=== PATIENT | female | born 1975 | race African-American/Black ===

== ENCOUNTER 2017-06-18 11:29 | Inpatient (IN) ==
[2017-06-18] MEDS ORDERED: HYDROcodone/CHLORPHENIRAMINE ER 5 ML UDCUP PO ONE ×2 (13:07→13:41)
[2017-06-18] MEDS ORDERED: ALBUTEROL/IPRATROPIUM 3 ML NEB RESP TX STA ×2 (13:07→14:51)
[2017-06-18 13:40] LABS: Basophils % 0.2 % (0.0-0.8); Hematocrit 43.1 VOL% (35.7-47.0); Hemoglobin 13.8 GM/DL (12.0-16.0); Immature Granulocytes % 0.4 %; Immature Granulocytes Absolute 0.02 #; Lymphocytes # 0.4 10*3/uL (1.4-4.0); Lymphocytes % 7.2 % (21.3-54.2); Mean Corpuscular Hemoglobin 29 PG (27-34); Mean Corpuscular Volume 89.6 FL (87-102); Mean Platelet Volume 12.2 FL (9.6-12.0); Monocytes # 0.6 10*3/uL (0.11-0.8); Monocytes % 12.4 % (1.7-12.7); Neutrophils % 79.8 % (38.7-73.9); Platelet Count 124 T/CUMM (130-400); Red Blood Count 4.81 MC/CUMM (3.8-5.5); Red Cell Distribution Width 12.7 % (9.3-17.3)
[2017-06-18 14:05] LABS: Albumin 3.3 G/DL (3.4-5.0); Bilirubin,Total 0.6 MG/DL (0.2-1.0); Calcium 8.5 MG/DL (8.5-10.1); Osmolality,Calculated 267.2 MOS/KG (273-304); Potassium 3.5 MMOL/L (3.5-5.1); Total Protein 7.4 G/DL (6.4-8.3)
[2017-06-18 14:06] LABS: Lactic Acid 1.6 MMOL/L (0.4-2.0)
[2017-06-18] MEDS ORDERED: SODIUM CHLORIDE 0.9% 1,000 ML IV STA (14:51)
[2017-06-18] MEDS ORDERED: cefTRIAXone 1,000 MG in SODIUM CHLORIDE 0.9% 100 ML IV STA (15:45)
[2017-06-18] MEDS ORDERED: ACETAMINOPHEN 325 MG TABLET PO ONE (16:12)
[2017-06-18] MEDS ORDERED: cefTRIAXone 1,000 MG VIAL ONE (16:20)
[2017-06-18] MEDS ORDERED: ACETAMINOPHEN 325 MG TABLET ONE (16:20)
[2017-06-18] MEDS ORDERED: ONDANSETRON 4 MG/2 ML VIAL IV PRN (16:34)
[2017-06-18] MEDS ORDERED: DILTIAZEM 50 MG/10 ML VIAL IV ONE ×2 (18:43→19:36)
[2017-06-18] MEDS ORDERED: ALBUTEROL 2.5 MG/3 ML NEB RESP TX PRN (20:00)
[2017-06-18] MEDS ORDERED: CARVEDILOL 3.125 MG TABLET PO ONE (20:00)
[2017-06-18] MEDS: OSELTAMIVIR 75 MG CAPSULE PO SCH (20:15)
[2017-06-18] MEDS: SODIUM CHLORIDE 0.9% 1,000 ML IV SCH (20:15)
[2017-06-19 05:45] LABS: Basophils % 0.3 % (0.0-0.8); Eosinophils % 0.3 % (0.00-10.9); Hematocrit 36.2 VOL% (35.7-47.0); Hemoglobin 11.4 GM/DL (12.0-16.0); Immature Granulocytes % 0.6 %; Immature Granulocytes Absolute 0.02 #; Lymphocytes # 0.4 10*3/uL (1.4-4.0); Lymphocytes % 12.9 % (21.3-54.2); Mean Corpuscular HGB Conc 31.5 GM/DL (32-36); Mean Corpuscular Hemoglobin 29 PG (27-34); Mean Corpuscular Volume 90.5 FL (87-102); Mean Platelet Volume 13.3 FL (9.6-12.0); Monocytes # 0.4 10*3/uL (0.11-0.8); Monocytes % 11.3 % (1.7-12.7); Neutrophils # 2.3 10*3/uL (1.4-7.4); Neutrophils % 74.6 % (38.7-73.9); Platelet Count 111 T/CUMM (130-400); White Blood Count 3.1 T/CUMM (4-12)
[2017-06-19 06:22] LABS: Calcium 7.7 MG/DL (8.5-10.1); Magnesium 2.3 MG/DL (1.8-2.4); Osmolality,Calculated 274.7 MOS/KG (273-304); Potassium 3.9 MMOL/L (3.5-5.1)
[2017-06-19] MEDS: SODIUM CHLORIDE 0.9% 1,000 ML IV SCH ×2 (10:00→21:22)
[2017-06-19] MEDS ORDERED: DILTIAZEM 30 MG TABLET PO SCH (10:00)
[2017-06-19] MEDS: PANTOPRAZOLE 40 MG TABLET PO SCH (10:02)
[2017-06-19] MEDS: OSELTAMIVIR 75 MG CAPSULE PO SCH ×2 (10:02→20:20)
[2017-06-19] MEDS: LEVOFLOXACIN INJ 500 MG in PREMIX 1 EACH IV SCH (17:10)
[2017-06-19] MEDS: ACETAMINOPHEN 325 MG TABLET PO PRN (17:12)
[2017-06-19] MEDS: cefTRIAXone 1,000 MG in SYRINGE 1 EACH IV SCH (20:20)
[2017-06-20 04:48] LABS: Eosinophils % 0.8 % (0.00-10.9); Hematocrit 32.8 VOL% (35.7-47.0); Hemoglobin 10.5 GM/DL (12.0-16.0); Immature Granulocytes % 0.4 %; Immature Granulocytes Absolute 0.01 #; Lymphocytes # 0.6 10*3/uL (1.4-4.0); Lymphocytes % 22.9 % (21.3-54.2); Mean Corpuscular Hemoglobin 29 PG (27-34); Mean Corpuscular Volume 90.9 FL (87-102); Monocytes # 0.2 10*3/uL (0.11-0.8); Monocytes % 8.3 % (1.7-12.7); Neutrophils # 1.7 10*3/uL (1.4-7.4); Neutrophils % 67.6 % (38.7-73.9); Red Blood Count 3.61 MC/CUMM (3.8-5.5); Red Cell Distribution Width 12.9 % (9.3-17.3); White Blood Count 2.5 T/CUMM (4-12)
[2017-06-20] MEDS: ACETAMINOPHEN 325 MG TABLET PO PRN ×2 (04:48→16:59)
[2017-06-20 04:55] LABS: Platelet Count 87 T/CUMM (130-400)
[2017-06-20 05:14] LABS: Calcium 7.2 MG/DL (8.5-10.1); Potassium 3.5 MMOL/L (3.5-5.1)
[2017-06-20 06:32] LABS: Hypochromasia 2+
[2017-06-20] MEDS: PANTOPRAZOLE 40 MG TABLET PO SCH (09:06)
[2017-06-20] MEDS: OSELTAMIVIR 75 MG CAPSULE PO SCH ×2 (09:06→20:25)
[2017-06-20] MEDS: SODIUM CHLORIDE 0.9% 1,000 ML IV SCH ×2 (11:27→14:54)
[2017-06-20] MEDS: LEVOFLOXACIN INJ 500 MG in PREMIX 1 EACH IV SCH (17:00)
[2017-06-20] MEDS: cefTRIAXone 1,000 MG in SYRINGE 1 EACH IV SCH (20:25)
[2017-06-21] MEDS: SODIUM CHLORIDE 0.9% 1,000 ML IV SCH ×3 (00:37→16:45)
[2017-06-21] MEDS: ACETAMINOPHEN 325 MG TABLET PO PRN (04:43)
[2017-06-21 06:48] LABS: Eosinophils % 0.5 % (0.00-10.9); Hematocrit 32.4 VOL% (35.7-47.0); Hemoglobin 10.4 GM/DL (12.0-16.0); Immature Granulocytes Absolute 0.02 #; Lymphocytes # 0.6 10*3/uL (1.4-4.0); Lymphocytes % 32.3 % (21.3-54.2); Mean Corpuscular HGB Conc 32.1 GM/DL (32-36); Mean Corpuscular Hemoglobin 29 PG (27-34); Monocytes # 0.2 10*3/uL (0.11-0.8); Monocytes % 8.3 % (1.7-12.7); Neutrophils # 1.1 10*3/uL (1.4-7.4); Neutrophils % 57.9 % (38.7-73.9); Platelet Count 77 T/CUMM (130-400); Red Cell Distribution Width 12.8 % (9.3-17.3); White Blood Count 1.9 T/CUMM (4-12)
[2017-06-21 07:14] LABS: Band Neutrophils 2 % (0-10); Hypochromasia 1+; Lymphocytes 30 % (20-55); Segmented Neutrophils 58 % (50-85); Total Cells Counted 100
[2017-06-21 07:15] LABS: Microcytosis 1+
[2017-06-21 07:16] LABS: Platelet Estimate Decreased
[2017-06-21 07:18] LABS: Calcium 7.2 MG/DL (8.5-10.1); Osmolality,Calculated 270.7 MOS/KG (273-304); Potassium 3.1 MMOL/L (3.5-5.1)
[2017-06-21] MEDS: OSELTAMIVIR 75 MG CAPSULE PO SCH ×2 (10:09→20:47)
[2017-06-21] MEDS: PANTOPRAZOLE 40 MG TABLET PO SCH (10:10)
[2017-06-21] MEDS: POTASSIUM CHLORIDE 20 MEQ TABLET PO SCH (12:49)
[2017-06-21] MEDS: LEVOFLOXACIN INJ 500 MG in PREMIX 1 EACH IV SCH (16:47)
[2017-06-21] MEDS: cefTRIAXone 1,000 MG in SYRINGE 1 EACH IV SCH (20:47)
[2017-06-22] MEDS: SODIUM CHLORIDE 0.9% 1,000 ML IV SCH (03:03)
[2017-06-22 04:42] LABS: Calcium 7.5 MG/DL (8.5-10.1); Osmolality,Calculated 273.5 MOS/KG (273-304); Potassium 3.7 MMOL/L (3.5-5.1)
[2017-06-22 08:19] VITALS: BP 113/71
[2017-06-22] MEDS: PANTOPRAZOLE 40 MG TABLET PO SCH (09:05)
[2017-06-22] MEDS: OSELTAMIVIR 75 MG CAPSULE PO SCH (09:05)
[2017-06-22] MEDS: POTASSIUM CHLORIDE 20 MEQ TABLET PO SCH (09:06)
== END 2017-06-22 11:31 | disposition home or self-care (01) | DRG 139 ==
LOC: N.ED 11:29 → N.EDINP 15:48 → N.5E 18:32 → N.TELEN 19:26

== ENCOUNTER 2017-12-07 17:40 | Inpatient (IN) ==
[2017-12-07] MEDS ORDERED: ALBUTEROL NEB SOLN 5 MG/ML 20 ML/BOTTLE CONT NEB STA (18:17)
[2017-12-07 18:49] LABS: Basophils % 0.7 % (0.0-0.8); Eosinophils # 0.7 10*3/uL (0.0-0.87); Eosinophils % 13.1 % (0.00-10.9); Hematocrit 39.2 VOL% (35.7-47.0); Hemoglobin 13.1 GM/DL (12.0-16.0); Immature Granulocytes % 0.2 %; Immature Granulocytes Absolute 0.01 #; Lymphocytes # 1.5 10*3/uL (1.4-4.0); Lymphocytes % 26.5 % (21.3-54.2); Mean Corpuscular HGB Conc 33.4 GM/DL (32-36); Mean Corpuscular Hemoglobin 29 PG (27-34); Mean Corpuscular Volume 87.7 FL (87-102); Mean Platelet Volume 12.7 FL (9.6-12.0); Monocytes # 0.7 10*3/uL (0.11-0.8); Monocytes % 12.7 % (1.7-12.7); Neutrophils # 2.7 10*3/uL (1.4-7.4); Neutrophils % 46.8 % (38.7-73.9); Platelet Count 136 T/CUMM (130-400); Red Blood Count 4.47 MC/CUMM (3.8-5.5); Red Cell Distribution Width 13.2 % (9.3-17.3); White Blood Count 5.7 T/CUMM (4-12)
[2017-12-07] MEDS ORDERED: ONDANSETRON 4 MG/2 ML VIAL IV STA (18:51)
[2017-12-07] MEDS ORDERED: methylPREDNISolone SOD SUC 125 MG/2 ML VIAL IV STA (18:51)
[2017-12-07 19:18] LABS: Albumin 3.8 G/DL (3.4-5.0); Bilirubin,Total 1.4 MG/DL (0.2-1.0); Calcium 9.3 MG/DL (8.5-10.1); Osmolality,Calculated 276.4 MOS/KG (273-304); Potassium 3.5 MMOL/L (3.5-5.1); Total Protein 7.3 G/DL (6.4-8.3)
[2017-12-07 20:54] LABS: Total Cells Counted 100
[2017-12-07 20:55] LABS: Band Neutrophils 3 % (0-10); Eosinophils 14 % (0-10); Hypochromasia 2+; Lymphocytes 25 % (20-55); Ovalocytes 1+; Platelet Estimate Decreased; Segmented Neutrophils 46 % (50-85)
[2017-12-07] MEDS ORDERED: ACETAMINOPHEN 325 MG TABLET PO PRN (22:45)
[2017-12-07] MEDS ORDERED: ONDANSETRON 4 MG/2 ML VIAL IV PRN (22:45)
[2017-12-07] MEDS ORDERED: ALBUTEROL/IPRATROPIUM 3 ML NEB RESP TX PRN (22:47)
[2017-12-08] MEDS: SODIUM CHLORIDE 0.9% 1,000 ML IV SCH ×2 (01:33→15:26)
[2017-12-08 06:32] LABS: Basophils % 0.2 % (0.0-0.8); Eosinophils % 0.4 % (0.00-10.9); Hemoglobin 12.3 GM/DL (12.0-16.0); Immature Granulocytes % 0.2 %; Immature Granulocytes Absolute 0.01 #; Lymphocytes # 0.3 10*3/uL (1.4-4.0); Lymphocytes % 5.2 % (21.3-54.2); Mean Corpuscular HGB Conc 32.4 GM/DL (32-36); Mean Corpuscular Hemoglobin 29 PG (27-34); Mean Corpuscular Volume 90.7 FL (87-102); Monocytes # 0.1 10*3/uL (0.11-0.8); Monocytes % 2.5 % (1.7-12.7); Neutrophils # 4.4 10*3/uL (1.4-7.4); Neutrophils % 91.5 % (38.7-73.9); Platelet Count 114 T/CUMM (130-400); Red Blood Count 4.19 MC/CUMM (3.8-5.5); Red Cell Distribution Width 13.4 % (9.3-17.3); White Blood Count 4.8 T/CUMM (4-12)
[2017-12-08 06:55] LABS: Hypochromasia 1+; Lymphocytes 4 % (20-55); Microcytosis Slight; Segmented Neutrophils 94 % (50-85); Total Cells Counted 100
[2017-12-08 06:56] LABS: Ovalocytes Slight; Platelet Estimate Adequate
[2017-12-08 07:04] LABS: Calcium 8.4 MG/DL (8.5-10.1)
[2017-12-08 07:05] LABS: Osmolality,Calculated 280.4 MOS/KG (273-304); Potassium 3.1 MMOL/L (3.5-5.1)
[2017-12-08] MEDS ORDERED: POTASSIUM CHLORIDE 20 MEQ TABLET PO ONE (07:30)
[2017-12-08] MEDS ORDERED: POTASSIUM CHLORIDE RIDER 10 MEQ in PREMIX 1 EACH IV PRN (07:31)
[2017-12-08] MEDS: BUDESONIDE/FORMOTEROL 80-4.5 INHALER 6.9 GM INH SCH ×2 (10:06→20:05)
[2017-12-08] MEDS: AZITHROMYCIN 250 MG TABLET PO SCH (10:08)
[2017-12-08] MEDS: PANTOPRAZOLE 40 MG TABLET PO SCH (10:09)
[2017-12-08] MEDS: ENOXAPARIN 40 MG/0.4 ML SYRINGE SUBCUT SCH (10:09)
[2017-12-08] MEDS: methylPREDNISolone SOD SUC 40 MG/1 ML VIAL IV SCH ×2 (10:09→17:24)
[2017-12-08 15:11] LABS: Calcium 8.3 MG/DL (8.5-10.1); Osmolality,Calculated 280.4 MOS/KG (273-304); Potassium 4.4 MMOL/L (3.5-5.1)
[2017-12-09] MEDS: methylPREDNISolone SOD SUC 40 MG/1 ML VIAL IV SCH ×2 (01:12→09:48)
[2017-12-09] MEDS: SODIUM CHLORIDE 0.9% 1,000 ML IV SCH (04:54)
[2017-12-09 06:16] LABS: Basophils % 0.1 % (0.0-0.8); Hematocrit 36.9 VOL% (35.7-47.0); Hemoglobin 11.7 GM/DL (12.0-16.0); Immature Granulocytes % 0.4 %; Immature Granulocytes Absolute 0.04 #; Lymphocytes # 0.6 10*3/uL (1.4-4.0); Lymphocytes % 5.1 % (21.3-54.2); Mean Corpuscular HGB Conc 31.7 GM/DL (32-36); Mean Corpuscular Hemoglobin 29 PG (27-34); Mean Corpuscular Volume 92.3 FL (87-102); Mean Platelet Volume 13.1 FL (9.6-12.0); Monocytes # 0.7 10*3/uL (0.11-0.8); Monocytes % 6.2 % (1.7-12.7); Neutrophils # 9.8 10*3/uL (1.4-7.4); Neutrophils % 88.2 % (38.7-73.9); Platelet Count 115 T/CUMM (130-400); Red Cell Distribution Width 13.7 % (9.3-17.3); White Blood Count 11.1 T/CUMM (4-12)
[2017-12-09 06:50] LABS: Calcium 8.7 MG/DL (8.5-10.1); Potassium 4.4 MMOL/L (3.5-5.1)
[2017-12-09 08:19] VITALS: BP 129/69
[2017-12-09] MEDS: ENOXAPARIN 40 MG/0.4 ML SYRINGE SUBCUT SCH (09:48)
[2017-12-09] MEDS: BUDESONIDE/FORMOTEROL 80-4.5 INHALER 6.9 GM INH SCH (09:48)
[2017-12-09] MEDS: AZITHROMYCIN 250 MG TABLET PO SCH (09:48)
[2017-12-09] MEDS: PANTOPRAZOLE 40 MG TABLET PO SCH (09:48)
== END 2017-12-09 10:29 | disposition home or self-care (01) | DRG 144 ==
LOC: N.ED 17:40 → N.4E 22:45
PROVIDERS: ADMIT Internal Medicine; ATTEND Internal Medicine

== ENCOUNTER 2018-06-30 08:58 | Inpatient (IN) ==
[2018-06-30] MEDS ORDERED: FUROSEMIDE 100 MG/10 ML VIAL IV STA (09:27)
[2018-06-30] MEDS ORDERED: hydrALAZINE 20 MG/1 ML VIAL IV STA (09:27)
[2018-06-30] MEDS ORDERED: methylPREDNISolone SOD SUC 125 MG/2 ML VIAL IV STA (09:27)
[2018-06-30] MEDS ORDERED: ONDANSETRON 4 MG/2 ML VIAL IV STA (09:27)
[2018-06-30] MEDS ORDERED: MORPHINE 4 MG/1 ML VIAL IV STA (09:27)
[2018-06-30] MEDS ORDERED: NITROGLYCERIN 2% OINT 1 INCH/GM PACK TOP STA (09:27)
[2018-06-30] MEDS ORDERED: ALBUTEROL 2.5 MG/3 ML NEB RESP TX SCH (09:30)
[2018-06-30 09:39] LABS: Basophils # 0.1 10*3/uL (0.0-0.2); Basophils % 0.7 % (0.0-0.8); Eosinophils # 0.5 10*3/uL (0.0-0.87); Hematocrit 47.9 VOL% (35.7-47.0); Hemoglobin 14.9 GM/DL (12.0-16.0); Immature Granulocytes % 0.2 %; Immature Granulocytes Absolute 0.02 #; Lymphocytes # 1.4 10*3/uL (1.4-4.0); Lymphocytes % 16.5 % (21.3-54.2); Mean Corpuscular HGB Conc 31.1 GM/DL (32-36); Mean Corpuscular Hemoglobin 29 PG (27-34); Mean Corpuscular Volume 92.6 FL (87-102); Mean Platelet Volume 12.3 FL (9.6-12.0); Monocytes # 0.7 10*3/uL (0.11-0.8); Monocytes % 8.5 % (1.7-12.7); Neutrophils # 5.7 10*3/uL (1.4-7.4); Neutrophils % 68.1 % (38.7-73.9); Platelet Count 181 T/CUMM (130-400); Red Blood Count 5.17 MC/CUMM (3.8-5.5); Red Cell Distribution Width 13.4 % (9.3-17.3); White Blood Count 8.3 T/CUMM (4-12)
[2018-06-30 09:49] LABS: INR 0.9; PT Patient Result 10.2 SECS
[2018-06-30 09:54] LABS: Alanine Aminotransferase 31 U/L (13-56); Albumin 3.8 G/DL (3.4-5.0); Alkaline Phosphatase 48 U/L (45-117); Aspartate Amino Transferase 25 U/L (0-37); Blood Urea Nitrogen 16 MG/DL (7-18); Calcium 8.9 MG/DL (8.5-10.1); Glucose 82 MG/DL (74-106); Osmolality,Calculated 272.8 MOS/KG (273-304); Sodium 137 MMOL/L (136-145); Total Protein 8.5 G/DL (6.4-8.3); Troponin I 0.026 NG/ML (0.00-0.045)
[2018-06-30] MEDS ORDERED: ALBUTEROL 2.5 MG/3 ML NEB RESP TX PRN (11:38)
[2018-06-30] MEDS ORDERED: ALBUTEROL/IPRATROPIUM 3 ML NEB RESP TX SCH (13:00)
[2018-06-30] MEDS ORDERED: PNEUMOCOCCAL VACCINE (23 VALENT) 0.5 ML VIAL IM ONE (13:27)
[2018-06-30] MEDS ORDERED: INFLUENZA VIRUS VACCINE 0.5 ML SYRINGE IM ONE (13:27)
[2018-06-30] MEDS ORDERED: AMOXICILLIN/CLAV 875 MG TABLET PO SCH (15:00)
[2018-06-30] MEDS: PANTOPRAZOLE 40 MG TABLET PO SCH (15:08)
[2018-06-30] MEDS: SODIUM CHLORIDE 0.9% 1,000 ML IV SCH (15:08)
[2018-06-30] MEDS: LEVALBUTEROL 1.25 MG/3 ML NEB RESP TX SCH ×2 (15:12→19:00)
[2018-06-30 15:15] LABS: HIV Antigen/Antibody Result Nonreactive (Nonreactive)
[2018-06-30 17:48] LABS: Apearance,Urine CLEAR (Clear); Bacteria,Urine Occasional /HPF (Few); Bilirubin,Urine Negative (Negative); Blood, Urine Negative (Negative); Glucose,Urine (UA) Negative (Negative); Hyaline Casts,Urine 13 /LPF (0-3); Ketones,Urine Negative (Negative); Mucus,Urine Occasional /LPF (Occasional); Nitrite,Urine Negative (Negative); Protein,Urine Negative; RBC,Urine <1 /HPF (0-4); Squamous Epithelial Cell,Urine Occasional /HPF (0-10); Urine Color Yellow (Yellow); Urine Specific Gravity 1.009 (1.001-1.035); Urine Urobilinogen < 2.0 EU/DL (0.2-1.0); WBC,Urine 1 /HPF (0-6)
[2018-06-30 18:03] LABS: Barbiturates Screen,Urine Negative (Negative); Benzodiazepines Screen,Urine Negative (Negative); Cannabinoid Screen,Urine Negative (Negative); Opiate Screen,Urine Positive (Negative); Phencyclidine Screen,Urine Negative (Negative)
[2018-06-30] MEDS: methylPREDNISolone SOD SUC 40 MG/1 ML VIAL IV SCH (18:48)
[2018-06-30] MEDS: MEROPENEM 1,000 MG in SODIUM CHLORIDE 0.9% 100 ML IV SCH (18:55)
[2018-06-30] MEDS: MONTELUKAST 10 MG TABLET PO SCH (21:08)
[2018-07-01] MEDS: LEVALBUTEROL 1.25 MG/3 ML NEB RESP TX SCH ×7 (00:31→23:17)
[2018-07-01] MEDS: methylPREDNISolone SOD SUC 40 MG/1 ML VIAL IV SCH ×3 (02:59→17:58)
[2018-07-01] MEDS: MEROPENEM 1,000 MG in SODIUM CHLORIDE 0.9% 100 ML IV SCH ×3 (03:02→17:59)
[2018-07-01] MEDS: SODIUM CHLORIDE 0.9% 1,000 ML IV SCH ×3 (03:02→20:09)
[2018-07-01] MEDS: PANTOPRAZOLE 40 MG TABLET PO SCH (10:18)
[2018-07-01] MEDS: MONTELUKAST 10 MG TABLET PO SCH (20:10)
[2018-07-01] MEDS: MORPHINE 4 MG/1 ML VIAL IV PRN (20:14)
[2018-07-02] MEDS: MEROPENEM 1,000 MG in SODIUM CHLORIDE 0.9% 100 ML IV SCH ×3 (02:39→18:17)
[2018-07-02] MEDS: methylPREDNISolone SOD SUC 40 MG/1 ML VIAL IV SCH ×3 (02:40→18:18)
[2018-07-02] MEDS: LEVALBUTEROL 1.25 MG/3 ML NEB RESP TX SCH ×5 (03:32→20:42)
[2018-07-02] MEDS ORDERED: FUROSEMIDE 40 MG/4 ML VIAL IV ONE (08:10)
[2018-07-02] MEDS: SODIUM CHLORIDE 0.9% 1,000 ML IV SCH (09:25)
[2018-07-02] MEDS: PANTOPRAZOLE 40 MG TABLET PO SCH (09:25)
[2018-07-02] MEDS: FUROSEMIDE 40 MG/4 ML VIAL IV SCH (17:05)
[2018-07-02] MEDS: MONTELUKAST 10 MG TABLET PO SCH (20:34)
[2018-07-03] MEDS: LEVALBUTEROL 1.25 MG/3 ML NEB RESP TX SCH ×8 (00:20→23:45)
[2018-07-03] MEDS: methylPREDNISolone SOD SUC 40 MG/1 ML VIAL IV SCH ×3 (02:51→17:57)
[2018-07-03] MEDS: MEROPENEM 1,000 MG in SODIUM CHLORIDE 0.9% 100 ML IV SCH ×3 (02:51→17:59)
[2018-07-03 05:29] LABS: Hemoglobin 11.8 GM/DL (12.0-16.0); Immature Granulocytes % 0.8 %; Immature Granulocytes Absolute 0.05 #; Lymphocytes # 0.5 10*3/uL (1.4-4.0); Lymphocytes % 7.8 % (21.3-54.2); Mean Corpuscular HGB Conc 31.1 GM/DL (32-36); Mean Corpuscular Hemoglobin 29 PG (27-34); Mean Corpuscular Volume 92.7 FL (87-102); Mean Platelet Volume 12.5 FL (9.6-12.0); Monocytes # 0.6 10*3/uL (0.11-0.8); Monocytes % 9.5 % (1.7-12.7); Neutrophils # 5.4 10*3/uL (1.4-7.4); Neutrophils % 81.9 % (38.7-73.9); Platelet Count 152 T/CUMM (130-400); White Blood Count 6.6 T/CUMM (4-12)
[2018-07-03 05:48] LABS: Calcium 8.4 MG/DL (8.5-10.1); Osmolality,Calculated 278.7 MOS/KG (273-304); Potassium 4.4 MMOL/L (3.5-5.1)
[2018-07-03] MEDS: PANTOPRAZOLE 40 MG TABLET PO SCH (10:10)
[2018-07-03] MEDS: FUROSEMIDE 40 MG/4 ML VIAL IV SCH ×2 (10:10→16:17)
[2018-07-03] MEDS ORDERED: ACETAMINOPHEN 325 MG TABLET PO PRN (10:59)
[2018-07-03] MEDS ORDERED: ZALEPLON 5 MG CAPSULE PO PRN (11:00)
[2018-07-03] MEDS: MORPHINE 4 MG/1 ML VIAL IV PRN (12:35)
[2018-07-03] MEDS: MONTELUKAST 10 MG TABLET PO SCH (20:29)
[2018-07-04] MEDS: LEVALBUTEROL 1.25 MG/3 ML NEB RESP TX SCH ×4 (02:35→15:20)
[2018-07-04] MEDS: methylPREDNISolone SOD SUC 40 MG/1 ML VIAL IV SCH ×2 (02:38→09:23)
[2018-07-04] MEDS: MEROPENEM 1,000 MG in SODIUM CHLORIDE 0.9% 100 ML IV SCH ×2 (02:39→09:29)
[2018-07-04] MEDS: FUROSEMIDE 40 MG/4 ML VIAL IV SCH ×2 (09:23→15:29)
[2018-07-04] MEDS: PANTOPRAZOLE 40 MG TABLET PO SCH (09:24)
[2018-07-04] MEDS ORDERED: amLODIPine 10 MG TABLET PO ONE (15:05)
[2018-07-04] MEDS ORDERED: INFLUENZA VIRUS VACCINE 0.5 ML SYRINGE IM ONE (16:56)
[2018-07-04 17:07] VITALS: BP 123/69
== END 2018-07-04 17:34 | disposition home or self-care (01) | DRG 145 ==
LOC: N.ED 08:58 → N.EDINP 11:37 → N.2W 11:55 → N.3E 16:07
PROVIDERS: ADMIT Internal Medicine; ATTEND Internal Medicine

== ENCOUNTER 2018-08-14 10:55 | Observation (INO) ==
[2018-08-14] MEDS ORDERED: ALBUTEROL/IPRATROPIUM 3 ML NEB RESP TX STA ×2 (12:28→14:50)
[2018-08-14 13:52] LABS: Basophils % 0.5 % (0.0-0.8); Eosinophils # 0.3 10*3/uL (0.0-0.87); Eosinophils % 3.9 % (0.00-10.9); Hematocrit 42.6 VOL% (35.7-47.0); Hemoglobin 13.4 GM/DL (12.0-16.0); Immature Granulocytes % 0.5 %; Immature Granulocytes Absolute 0.04 #; Lymphocytes # 1.5 10*3/uL (1.4-4.0); Lymphocytes % 17.7 % (21.3-54.2); Mean Corpuscular HGB Conc 31.5 GM/DL (32-36); Mean Corpuscular Hemoglobin 28 PG (27-34); Mean Corpuscular Volume 90.3 FL (87-102); Mean Platelet Volume 11.8 FL (9.6-12.0); Monocytes # 0.7 10*3/uL (0.11-0.8); Neutrophils % 69.4 % (38.7-73.9); Platelet Count 160 T/CUMM (130-400); Red Blood Count 4.72 MC/CUMM (3.8-5.5); White Blood Count 8.7 T/CUMM (4-12)
[2018-08-14 14:13] LABS: Albumin 3.5 G/DL (3.4-5.0); Bilirubin,Total 0.5 MG/DL (0.2-1.0); Osmolality,Calculated 271.7 MOS/KG (273-304); Potassium 3.6 MMOL/L (3.5-5.1); Total Protein 7.6 G/DL (6.4-8.3)
[2018-08-14] MEDS ORDERED: methylPREDNISolone SOD SUC 125 MG/2 ML VIAL IV STA (14:51)
[2018-08-14] MEDS ORDERED: LEVOFLOXACIN INJ 750 MG in PREMIX 1 EACH IV STA (14:55)
[2018-08-14] MEDS ORDERED: methylPREDNISolone SOD SUC 125 MG/2 ML VIAL ONE (15:12)
[2018-08-14] MEDS ORDERED: LEVOFLOXACIN INJ 150 ML IV ONE (15:12)
[2018-08-14] MEDS ORDERED: ALBUTEROL 2.5 MG/3 ML NEB RESP TX PRN (15:45)
[2018-08-14] MEDS ORDERED: ACETAMINOPHEN 325 MG TABLET PO PRN (15:45)
[2018-08-14] MEDS: amLODIPine 5 MG TABLET PO SCH (18:08)
[2018-08-14] MEDS: FUROSEMIDE 20 MG TABLET PO SCH (18:13)
[2018-08-14] MEDS: methylPREDNISolone SOD SUC 125 MG/2 ML VIAL IV SCH (20:45)
[2018-08-14] MEDS: MONTELUKAST 10 MG TABLET PO SCH (20:45)
[2018-08-14] MEDS: ENOXAPARIN 40 MG/0.4 ML SYRINGE SUBCUT SCH (20:48)
[2018-08-14] MEDS ORDERED: MONTELUKAST 10 MG TABLET PO SCH (21:00)
[2018-08-14] MEDS: ALBUTEROL/IPRATROPIUM 3 ML NEB RESP TX SCH (22:46)
[2018-08-15] MEDS: methylPREDNISolone SOD SUC 125 MG/2 ML VIAL IV SCH ×4 (03:41→20:51)
[2018-08-15] MEDS: ALBUTEROL/IPRATROPIUM 3 ML NEB RESP TX SCH ×5 (03:54→20:17)
[2018-08-15 07:30] LABS: Basophils % 0.1 % (0.0-0.8); Hematocrit 35.8 VOL% (35.7-47.0); Hemoglobin 11.5 GM/DL (12.0-16.0); Immature Granulocytes % 0.5 %; Immature Granulocytes Absolute 0.04 #; Lymphocytes # 0.6 10*3/uL (1.4-4.0); Lymphocytes % 8.7 % (21.3-54.2); Mean Corpuscular HGB Conc 32.1 GM/DL (32-36); Mean Corpuscular Hemoglobin 29 PG (27-34); Mean Corpuscular Volume 89.3 FL (87-102); Mean Platelet Volume 12.3 FL (9.6-12.0); Monocytes # 0.6 10*3/uL (0.11-0.8); Monocytes % 8.6 % (1.7-12.7); Neutrophils % 82.1 % (38.7-73.9); Platelet Count 168 T/CUMM (130-400); Red Blood Count 4.01 MC/CUMM (3.8-5.5); Red Cell Distribution Width 12.7 % (9.3-17.3); White Blood Count 7.4 T/CUMM (4-12)
[2018-08-15 07:51] LABS: Calcium 8.9 MG/DL (8.5-10.1); Osmolality,Calculated 271.2 MOS/KG (273-304); Potassium 3.6 MMOL/L (3.5-5.1); Thyroid Stimulating Hormone 0.352 uIU/ml (0.358-3.74)
[2018-08-15] MEDS: amLODIPine 5 MG TABLET PO SCH (10:20)
[2018-08-15] MEDS: BENZONATATE 100 MG CAPSULE PO SCH ×3 (10:20→20:50)
[2018-08-15] MEDS: FUROSEMIDE 20 MG TABLET PO SCH (10:21)
[2018-08-15] MEDS: PANTOPRAZOLE 40 MG TABLET PO SCH (10:21)
[2018-08-15] MEDS: LEVOFLOXACIN INJ 750 MG in PREMIX 1 EACH IV SCH (15:39)
[2018-08-15] MEDS: MONTELUKAST 10 MG TABLET PO SCH (20:50)
[2018-08-15] MEDS: ONDANSETRON 4 MG/2 ML VIAL IV PRN (20:51)
[2018-08-15] MEDS: ENOXAPARIN 40 MG/0.4 ML SYRINGE SUBCUT SCH (20:52)
[2018-08-16] MEDS: ALBUTEROL/IPRATROPIUM 3 ML NEB RESP TX SCH ×7 (00:31→22:47)
[2018-08-16] MEDS: methylPREDNISolone SOD SUC 125 MG/2 ML VIAL IV SCH ×4 (03:14→20:30)
[2018-08-16 06:47] LABS: Basophils % 0.1 % (0.0-0.8); Hematocrit 37.2 VOL% (35.7-47.0); Hemoglobin 11.6 GM/DL (12.0-16.0); Immature Granulocytes % 0.8 %; Immature Granulocytes Absolute 0.11 #; Lymphocytes # 0.7 10*3/uL (1.4-4.0); Lymphocytes % 4.5 % (21.3-54.2); Mean Corpuscular HGB Conc 31.2 GM/DL (32-36); Mean Corpuscular Hemoglobin 28 PG (27-34); Mean Corpuscular Volume 91.2 FL (87-102); Mean Platelet Volume 12.3 FL (9.6-12.0); Monocytes # 1.2 10*3/uL (0.11-0.8); Monocytes % 8.3 % (1.7-12.7); Neutrophils # 12.6 10*3/uL (1.4-7.4); Neutrophils % 86.3 % (38.7-73.9); Platelet Count 200 T/CUMM (130-400); Red Blood Count 4.08 MC/CUMM (3.8-5.5); White Blood Count 14.5 T/CUMM (4-12)
[2018-08-16 07:11] LABS: Hypochromasia 1+; Lymphocytes 4 % (20-55); Platelet Estimate Adequate; Segmented Neutrophils 89 % (50-85); Total Cells Counted 100
[2018-08-16 07:23] LABS: Calcium 7.8 MG/DL (8.5-10.1)
[2018-08-16 07:47] LABS: Osmolality,Calculated 269.1 MOS/KG (273-304)
[2018-08-16] MEDS: FUROSEMIDE 20 MG TABLET PO SCH (09:42)
[2018-08-16] MEDS: amLODIPine 5 MG TABLET PO SCH (09:42)
[2018-08-16] MEDS: PANTOPRAZOLE 40 MG TABLET PO SCH (09:42)
[2018-08-16] MEDS: BENZONATATE 100 MG CAPSULE PO SCH ×3 (09:43→20:36)
[2018-08-16] MEDS: ONDANSETRON 4 MG/2 ML VIAL IV PRN (13:00)
[2018-08-16] MEDS: LEVOFLOXACIN INJ 750 MG in PREMIX 1 EACH IV SCH (14:20)
[2018-08-16] MEDS: MONTELUKAST 10 MG TABLET PO SCH (20:36)
[2018-08-16] MEDS: ENOXAPARIN 40 MG/0.4 ML SYRINGE SUBCUT SCH (20:39)
[2018-08-17] MEDS: ALBUTEROL/IPRATROPIUM 3 ML NEB RESP TX SCH ×2 (03:10→07:46)
[2018-08-17 05:58] LABS: Basophils % 0.1 % (0.0-0.8); Hematocrit 34.2 VOL% (35.7-47.0); Hemoglobin 10.5 GM/DL (12.0-16.0); Immature Granulocytes % 1.8 %; Immature Granulocytes Absolute 0.19 #; Lymphocytes # 0.5 10*3/uL (1.4-4.0); Lymphocytes % 4.8 % (21.3-54.2); Mean Corpuscular HGB Conc 30.7 GM/DL (32-36); Mean Corpuscular Hemoglobin 28 PG (27-34); Mean Corpuscular Volume 91.7 FL (87-102); Mean Platelet Volume 12.2 FL (9.6-12.0); Monocytes # 0.8 10*3/uL (0.11-0.8); Monocytes % 7.7 % (1.7-12.7); Neutrophils # 8.8 10*3/uL (1.4-7.4); Neutrophils % 85.6 % (38.7-73.9); Platelet Count 185 T/CUMM (130-400); Red Blood Count 3.73 MC/CUMM (3.8-5.5); Red Cell Distribution Width 13.1 % (9.3-17.3); White Blood Count 10.3 T/CUMM (4-12)
[2018-08-17 06:18] LABS: Calcium 8.8 MG/DL (8.5-10.1); Osmolality,Calculated 272.1 MOS/KG (273-304); Potassium 3.9 MMOL/L (3.5-5.1)
[2018-08-17 06:30] LABS: Anisocytosis Slight; Lymphocytes 4 % (20-55); Platelet Estimate Normal; Segmented Neutrophils 89 % (50-85); Total Cells Counted 100
[2018-08-17 07:31] VITALS: BP 112/68
[2018-08-17] MEDS: methylPREDNISolone SOD SUC 125 MG/2 ML VIAL IV SCH ×2 (07:47→08:18)
[2018-08-17] MEDS: PANTOPRAZOLE 40 MG TABLET PO SCH (08:17)
[2018-08-17] MEDS: BENZONATATE 100 MG CAPSULE PO SCH (08:17)
[2018-08-17] MEDS: amLODIPine 5 MG TABLET PO SCH (08:17)
[2018-08-17] MEDS: FUROSEMIDE 20 MG TABLET PO SCH (08:17)
== END 2018-08-17 11:30 | disposition home or self-care (01) ==
LOC: N.ED 10:55 → N.EDINP 10:55 → SUATTDRO 15:39 → N.5E 17:43
PROVIDERS: ADMIT Hospitalist; ATTEND Internal Medicine

== ENCOUNTER 2018-10-05 13:29 | Observation (INO) ==
[2018-10-05 13:55] LABS: Basophils % 0.6 % (0.0-0.8); Eosinophils # 0.8 10*3/uL (0.0-0.87); Eosinophils % 12.6 % (0.00-10.9); Hematocrit 44.4 VOL% (35.7-47.0); Hemoglobin 13.6 GM/DL (12.0-16.0); Immature Granulocytes % 0.3 %; Immature Granulocytes Absolute 0.02 #; Lymphocytes # 1.7 10*3/uL (1.4-4.0); Lymphocytes % 26.1 % (21.3-54.2); Mean Corpuscular HGB Conc 30.6 GM/DL (32-36); Mean Corpuscular Hemoglobin 29 PG (27-34); Mean Corpuscular Volume 93.7 FL (87-102); Mean Platelet Volume 11.2 FL (9.6-12.0); Monocytes # 0.8 10*3/uL (0.11-0.8); Monocytes % 12.1 % (1.7-12.7); Neutrophils # 3.1 10*3/uL (1.4-7.4); Neutrophils % 48.3 % (38.7-73.9); Platelet Count 164 T/CUMM (130-400); Red Blood Count 4.74 MC/CUMM (3.8-5.5); Red Cell Distribution Width 13.5 % (9.3-17.3); White Blood Count 6.4 T/CUMM (4-12)
[2018-10-05] MEDS ORDERED: ASPIRIN 325 MG TABLET PO STA (14:14)
[2018-10-05] MEDS ORDERED: methylPREDNISolone SOD SUC 125 MG/2 ML VIAL IV STA (14:14)
[2018-10-05] MEDS ORDERED: ALBUTEROL NEB SOLN 5 MG/ML 20 ML/BOTTLE CONT NEB STA (14:14)
[2018-10-05] MEDS ORDERED: ALUM/MAG/SIMETH/LIDO VISC 1:1 30 ML BOTTLE PO STA (14:14)
[2018-10-05] MEDS ORDERED: MORPHINE 4 MG/1 ML VIAL IV STA (14:14)
[2018-10-05] MEDS ORDERED: NITROGLYCERIN 2% OINT 1 INCH/GM PACK TOP STA (14:14)
[2018-10-05] MEDS ORDERED: ONDANSETRON 4 MG/2 ML VIAL IV STA (14:14)
[2018-10-05 14:24] LABS: Eosinophils 9 % (0-10); Lymphocytes 27 % (20-55); Platelet Estimate Normal; Segmented Neutrophils 55 % (50-85); Total Cells Counted 100
[2018-10-05 14:35] LABS: Apearance,Urine Slightly Hazy (Clear); Bilirubin,Urine Negative (Negative); Blood, Urine Negative (Negative); Glucose,Urine (UA) Negative (Negative); Ketones,Urine Negative (Negative); Mucus,Urine Occasional /LPF (Occasional); Nitrite,Urine Negative (Negative); Protein,Urine Negative; RBC,Urine 1 /HPF (0-4); Squamous Epithelial Cell,Urine Occasional /HPF (0-10); Urine Color Yellow (Yellow); Urine Specific Gravity 1.013 (1.001-1.035); Urine Urobilinogen < 2.0 EU/DL (0.2-1.0); WBC,Urine 4 /HPF (0-6)
[2018-10-05 14:37] LABS: PT Patient Result 10.6 SECS
[2018-10-05 14:42] LABS: Barbiturates Screen,Urine Negative (Negative); Benzodiazepines Screen,Urine Negative (Negative); Cannabinoid Screen,Urine Negative (Negative); Opiate Screen,Urine Negative (Negative); Phencyclidine Screen,Urine Negative (Negative)
[2018-10-05 15:03] LABS: Bilirubin,Total 0.8 MG/DL (0.2-1.0); Osmolality,Calculated 273.5 MOS/KG (273-304); Potassium 4.1 MMOL/L (3.5-5.1); Total Protein 7.5 G/DL (6.4-8.3)
[2018-10-05] MEDS ORDERED: cefTRIAXone 1,000 MG in SODIUM CHLORIDE 0.9% 100 ML IV STA (15:04)
[2018-10-05] MEDS ORDERED: ONDANSETRON 4 MG/2 ML VIAL IV PRN (16:04)
[2018-10-05] MEDS ORDERED: ALBUTEROL/IPRATROPIUM 3 ML NEB RESP TX PRN (19:00)
[2018-10-05] MEDS: methylPREDNISolone SOD SUC 40 MG/1 ML VIAL IV SCH (21:10)
[2018-10-06 04:43] LABS: Basophils % 0.2 % (0.0-0.8); Hematocrit 38.1 VOL% (35.7-47.0); Hemoglobin 11.6 GM/DL (12.0-16.0); Immature Granulocytes % 0.3 %; Immature Granulocytes Absolute 0.02 #; Lymphocytes # 0.5 10*3/uL (1.4-4.0); Lymphocytes % 8.2 % (21.3-54.2); Mean Corpuscular HGB Conc 30.4 GM/DL (32-36); Mean Corpuscular Hemoglobin 29 PG (27-34); Mean Corpuscular Volume 93.6 FL (87-102); Mean Platelet Volume 11.7 FL (9.6-12.0); Monocytes # 0.5 10*3/uL (0.11-0.8); Monocytes % 7.8 % (1.7-12.7); Neutrophils # 4.9 10*3/uL (1.4-7.4); Neutrophils % 83.5 % (38.7-73.9); Platelet Count 150 T/CUMM (130-400); Red Blood Count 4.07 MC/CUMM (3.8-5.5); Red Cell Distribution Width 13.6 % (9.3-17.3); White Blood Count 5.9 T/CUMM (4-12)
[2018-10-06 05:08] LABS: Calcium 8.7 MG/DL (8.5-10.1); Osmolality,Calculated 271.1 MOS/KG (273-304); Potassium 4.1 MMOL/L (3.5-5.1); Risk Ratio 2.44; Thyroid Stimulating Hormone 0.311 uIU/ml (0.358-3.74); VLDL CHOLESTEROL 6.4 MG/DL
[2018-10-06] MEDS: methylPREDNISolone SOD SUC 40 MG/1 ML VIAL IV SCH ×2 (09:40→20:36)
[2018-10-06] MEDS: PANTOPRAZOLE 40 MG TABLET PO SCH (09:40)
[2018-10-06] MEDS: amLODIPine 5 MG TABLET PO SCH (09:40)
[2018-10-06] MEDS: ALBUTEROL/IPRATROPIUM 3 ML NEB RESP TX SCH (19:48)
[2018-10-06] MEDS: MONTELUKAST 10 MG TABLET PO SCH (20:36)
[2018-10-07] MEDS: ALBUTEROL/IPRATROPIUM 3 ML NEB RESP TX SCH ×2 (00:10→07:05)
[2018-10-07 05:10] LABS: Basophils % 0.1 % (0.0-0.8); Hematocrit 39.2 VOL% (35.7-47.0); Hemoglobin 11.9 GM/DL (12.0-16.0); Immature Granulocytes % 0.3 %; Immature Granulocytes Absolute 0.03 #; Lymphocytes # 0.6 10*3/uL (1.4-4.0); Mean Corpuscular HGB Conc 30.4 GM/DL (32-36); Mean Corpuscular Hemoglobin 29 PG (27-34); Mean Corpuscular Volume 94.2 FL (87-102); Mean Platelet Volume 12.5 FL (9.6-12.0); Monocytes # 0.7 10*3/uL (0.11-0.8); Monocytes % 7.5 % (1.7-12.7); Neutrophils # 8.3 10*3/uL (1.4-7.4); Neutrophils % 86.1 % (38.7-73.9); Platelet Count 159 T/CUMM (130-400); Red Blood Count 4.16 MC/CUMM (3.8-5.5); Red Cell Distribution Width 13.8 % (9.3-17.3); White Blood Count 9.6 T/CUMM (4-12)
[2018-10-07 05:25] LABS: Calcium 8.8 MG/DL (8.5-10.1); Osmolality,Calculated 279.7 MOS/KG (273-304); Potassium 3.9 MMOL/L (3.5-5.1)
[2018-10-07] MEDS: PANTOPRAZOLE 40 MG TABLET PO SCH (09:20)
[2018-10-07] MEDS: amLODIPine 5 MG TABLET PO SCH (09:21)
[2018-10-07] MEDS: methylPREDNISolone SOD SUC 40 MG/1 ML VIAL IV SCH (09:21)
[2018-10-07] MEDS: MONTELUKAST 10 MG TABLET PO SCH (09:22)
[2018-10-07 11:53] VITALS: BP 132/61
== END 2018-10-07 13:19 | disposition home or self-care (01) ==
LOC: N.ED 13:29 → N.EDINP 13:29 → N.4E 21:41
PROVIDERS: ADMIT Internal Medicine; ATTEND Internal Medicine

== ENCOUNTER 2018-10-26 08:43 | Observation (INO) ==
[2018-10-26] MEDS ORDERED: methylPREDNISolone SOD SUC 125 MG/2 ML VIAL IV STA (09:13)
[2018-10-26] MEDS ORDERED: ALBUTEROL/IPRATROPIUM 3 ML NEB RESP TX STA (09:13)
[2018-10-26 09:52] LABS: Basophils # 0.1 10*3/uL (0.0-0.2); Basophils % 0.7 % (0.0-0.8); Eosinophils # 0.6 10*3/uL (0.0-0.87); Hematocrit 43.5 VOL% (35.7-47.0); Hemoglobin 13.5 GM/DL (12.0-16.0); Immature Granulocytes % 0.3 %; Immature Granulocytes Absolute 0.02 #; Lymphocytes # 1.1 10*3/uL (1.4-4.0); Lymphocytes % 16.2 % (21.3-54.2); Mean Corpuscular Hemoglobin 29 PG (27-34); Mean Corpuscular Volume 92.8 FL (87-102); Mean Platelet Volume 11.8 FL (9.6-12.0); Monocytes # 0.8 10*3/uL (0.11-0.8); Monocytes % 11.4 % (1.7-12.7); Neutrophils # 4.3 10*3/uL (1.4-7.4); Neutrophils % 62.4 % (38.7-73.9); Platelet Count 166 T/CUMM (130-400); Red Blood Count 4.69 MC/CUMM (3.8-5.5); Red Cell Distribution Width 13.2 % (9.3-17.3); White Blood Count 6.9 T/CUMM (4-12)
[2018-10-26] MEDS: ALBUTEROL 2.5 MG/3 ML NEB RESP TX SCH ×2 (09:57→09:58)
[2018-10-26 10:14] LABS: Albumin 3.7 G/DL (3.4-5.0); Bilirubin,Total 1.2 MG/DL (0.2-1.0); Calcium 8.9 MG/DL (8.5-10.1); Osmolality,Calculated 274.5 MOS/KG (273-304); Potassium 4.1 MMOL/L (3.5-5.1); Total Protein 7.2 G/DL (6.4-8.3)
[2018-10-26] MEDS ORDERED: ALBUTEROL/IPRATROPIUM 3 ML NEB RESP TX PRN (11:42)
[2018-10-26] MEDS ORDERED: ONDANSETRON 4 MG/2 ML VIAL IV PRN (11:45)
[2018-10-26] MEDS ORDERED: ACETAMINOPHEN 325 MG TABLET PO PRN (11:45)
[2018-10-26] MEDS ORDERED: SODIUM CHLORIDE 0.9% 1,000 ML IV SCH (12:00)
[2018-10-26 17:45] LABS: Apearance,Urine CLEAR (Clear); Bilirubin,Urine Negative (Negative); Blood, Urine Negative (Negative); Glucose,Urine (UA) Negative (Negative); Ketones,Urine 5 mg/dL (Negative); Mucus,Urine Occasional /LPF (Occasional); Nitrite,Urine Negative (Negative); Protein,Urine Negative; RBC,Urine <1 /HPF (0-4); Squamous Epithelial Cell,Urine Occasional /HPF (0-10); Urine Color Yellow (Yellow); Urine Urobilinogen < 2.0 EU/DL (0.2-1.0); WBC,Urine 1 /HPF (0-6)
[2018-10-26] MEDS: methylPREDNISolone SOD SUC 125 MG/2 ML VIAL IV SCH (20:30)
[2018-10-26] MEDS: MONTELUKAST 10 MG TABLET PO SCH (20:30)
[2018-10-26] MEDS ORDERED: ENOXAPARIN 40 MG/0.4 ML SYRINGE SUBCUT SCH (21:00)
[2018-10-27 04:59] LABS: Hematocrit 36.8 VOL% (35.7-47.0); Hemoglobin 11.7 GM/DL (12.0-16.0); Immature Granulocytes % 0.3 %; Immature Granulocytes Absolute 0.02 #; Lymphocytes # 0.8 10*3/uL (1.4-4.0); Lymphocytes % 12.4 % (21.3-54.2); Mean Corpuscular HGB Conc 31.8 GM/DL (32-36); Mean Corpuscular Hemoglobin 29 PG (27-34); Mean Corpuscular Volume 91.8 FL (87-102); Mean Platelet Volume 11.9 FL (9.6-12.0); Monocytes # 0.7 10*3/uL (0.11-0.8); Monocytes % 11.8 % (1.7-12.7); Neutrophils # 4.7 10*3/uL (1.4-7.4); Neutrophils % 75.5 % (38.7-73.9); Platelet Count 151 T/CUMM (130-400); Red Blood Count 4.01 MC/CUMM (3.8-5.5); Red Cell Distribution Width 13.3 % (9.3-17.3); White Blood Count 6.3 T/CUMM (4-12)
[2018-10-27 05:25] LABS: Bilirubin,Total 0.5 MG/DL (0.2-1.0); Calcium 8.5 MG/DL (8.5-10.1); Osmolality,Calculated 275.7 MOS/KG (273-304); Potassium 4.1 MMOL/L (3.5-5.1); Total Protein 6.5 G/DL (6.4-8.3)
[2018-10-27] MEDS ORDERED: IBUPROFEN 600 MG TABLET PO ONE (08:10)
[2018-10-27] MEDS ORDERED: PANTOPRAZOLE 40 MG TABLET PO SCH (09:00)
[2018-10-27] MEDS ORDERED: amLODIPine 5 MG TABLET PO SCH (09:00)
[2018-10-27] MEDS: methylPREDNISolone SOD SUC 125 MG/2 ML VIAL IV SCH (09:01)
[2018-10-27] MEDS: MONTELUKAST 10 MG TABLET PO SCH (09:02)
[2018-10-27 12:04] VITALS: BP 124/79
== END 2018-10-27 15:00 | disposition home or self-care (01) ==
LOC: N.ED 08:43 → N.EDINP 08:43 → N.5E 14:16
PROVIDERS: ADMIT Internal Medicine; ATTEND Internal Medicine

== ENCOUNTER 2018-11-13 21:28 | Observation (INO) ==
[2018-11-13] MEDS ORDERED: ALBUTEROL/IPRATROPIUM 3 ML NEB RESP TX STA (23:18)
[2018-11-13] MEDS ORDERED: ONDANSETRON 4 MG/2 ML VIAL IV STA (23:18)
[2018-11-13] MEDS ORDERED: methylPREDNISolone SOD SUC 125 MG/2 ML VIAL IV STA (23:18)
[2018-11-13] MEDS ORDERED: SODIUM CHLORIDE 0.9% 1,000 ML IV STA (23:18)
[2018-11-13 23:55] LABS: Basophils # 0.1 10*3/uL (0.0-0.2); Basophils % 0.5 % (0.0-0.8); Eosinophils # 0.6 10*3/uL (0.0-0.87); Eosinophils % 5.5 % (0.00-10.9); Hemoglobin 12.1 GM/DL (12.0-16.0); Immature Granulocytes % 0.4 %; Immature Granulocytes Absolute 0.04 #; Lymphocytes # 1.5 10*3/uL (1.4-4.0); Lymphocytes % 14.9 % (21.3-54.2); Mean Corpuscular Hemoglobin 29 PG (27-34); Mean Corpuscular Volume 93.5 FL (87-102); Monocytes % 10.4 % (1.7-12.7); Neutrophils # 6.8 10*3/uL (1.4-7.4); Neutrophils % 68.3 % (38.7-73.9); Platelet Count 167 T/CUMM (130-400); Red Blood Count 4.17 MC/CUMM (3.8-5.5); White Blood Count 9.9 T/CUMM (4-12)
[2018-11-13 23:58] LABS: ABG HCO3 23.5 MMOL/L (20-26); ABG Oxygen Saturation 94.4 % (95-100); ABG PCO2 42.5 MM HG (35-48); ABG PH 7.367 (7.35-7.45); ABG PO2 75.5 MM HG (80-95); ABG TCO2 21.7 MMOL/L (23-27); Allen Test Positive
[2018-11-14 00:07] LABS: INR 0.9; PT Patient Result 10.3 SECS; Partial Thromboplastin Time 27.5 SECS (0-40)
[2018-11-14 00:14] LABS: Alanine Aminotransferase 13 U/L (13-56); Albumin 3.5 G/DL (3.4-5.0); Alkaline Phosphatase 57 U/L (45-117); Aspartate Amino Transferase 16 U/L (0-37); Bilirubin,Total < 0.39 MG/DL (0.2-1.0); Blood Urea Nitrogen 15 MG/DL (7-18); Glucose 87 MG/DL (74-106); Potassium 3.8 MMOL/L (3.5-5.1); Sodium 143 MMOL/L (136-145); Total Protein 7.2 G/DL (6.4-8.3)
[2018-11-14] MEDS ORDERED: cefTRIAXone 1,000 MG in SODIUM CHLORIDE 0.9% 100 ML IV STA (00:35)
[2018-11-14] MEDS ORDERED: ALBUTEROL 2.5 MG/3 ML NEB RESP TX PRN (03:12)
[2018-11-14] MEDS ORDERED: ACETAMINOPHEN 325 MG TABLET PO PRN (03:19)
[2018-11-14] MEDS ORDERED: MORPHINE 4 MG/1 ML VIAL IV PRN (03:19)
[2018-11-14] MEDS ORDERED: ONDANSETRON 4 MG/2 ML VIAL IV PRN (03:19)
[2018-11-14] MEDS ORDERED: PNEUMOCOCCAL VACCINE (23 VALENT) 0.5 ML VIAL IM ONE (04:31)
[2018-11-14] MEDS: SODIUM CHLORIDE 0.9% 1,000 ML IV SCH ×3 (05:59→16:18)
[2018-11-14 06:15] LABS: Basophils % 0.2 % (0.0-0.8); Eosinophils % 0.2 % (0.00-10.9); Hematocrit 36.3 VOL% (35.7-47.0); Hemoglobin 11.2 GM/DL (12.0-16.0); Immature Granulocytes % 0.3 %; Immature Granulocytes Absolute 0.02 #; Lymphocytes # 0.3 10*3/uL (1.4-4.0); Lymphocytes % 4.5 % (21.3-54.2); Mean Corpuscular HGB Conc 30.9 GM/DL (32-36); Mean Corpuscular Hemoglobin 29 PG (27-34); Mean Platelet Volume 12.5 FL (9.6-12.0); Monocytes # 0.1 10*3/uL (0.11-0.8); Monocytes % 1.4 % (1.7-12.7); Neutrophils # 6.2 10*3/uL (1.4-7.4); Neutrophils % 93.4 % (38.7-73.9); Platelet Count 155 T/CUMM (130-400); Red Blood Count 3.86 MC/CUMM (3.8-5.5); Red Cell Distribution Width 12.8 % (9.3-17.3); White Blood Count 6.6 T/CUMM (4-12)
[2018-11-14 06:26] LABS: Calcium 7.8 MG/DL (8.5-10.1); Osmolality,Calculated 284.1 MOS/KG (273-304); Potassium 3.6 MMOL/L (3.5-5.1)
[2018-11-14 06:45] LABS: Lymphocytes 4 % (20-55); Platelet Estimate Decreased; Polychromasia Slight; Segmented Neutrophils 96 % (50-85); Total Cells Counted 100
[2018-11-14] MEDS: ALBUTEROL/IPRATROPIUM 3 ML NEB RESP TX SCH ×3 (07:53→18:55)
[2018-11-14] MEDS: ENOXAPARIN 40 MG/0.4 ML SYRINGE SUBCUT SCH (09:48)
[2018-11-14] MEDS: LORATADINE 10 MG TABLET PO SCH (09:48)
[2018-11-14] MEDS: methylPREDNISolone SOD SUC 40 MG/1 ML VIAL IV SCH ×3 (09:48→23:38)
[2018-11-14] MEDS: amLODIPine 5 MG TABLET PO SCH (09:49)
[2018-11-14] MEDS: MONTELUKAST 10 MG TABLET PO SCH ×2 (09:49→20:37)
[2018-11-14] MEDS: FLUTICASONE 50 MCG NASAL SPRAY 16 GM BOTTLE BOTH NARES SCH (09:53)
[2018-11-15] MEDS: SODIUM CHLORIDE 0.9% 1,000 ML IV SCH ×2 (03:06→14:18)
[2018-11-15] MEDS: ALBUTEROL/IPRATROPIUM 3 ML NEB RESP TX SCH ×4 (07:17→19:05)
[2018-11-15] MEDS: methylPREDNISolone SOD SUC 40 MG/1 ML VIAL IV SCH ×2 (09:20→16:06)
[2018-11-15] MEDS: FLUTICASONE 50 MCG NASAL SPRAY 16 GM BOTTLE BOTH NARES SCH (09:20)
[2018-11-15] MEDS: amLODIPine 5 MG TABLET PO SCH (09:21)
[2018-11-15] MEDS: LORATADINE 10 MG TABLET PO SCH (09:21)
[2018-11-15] MEDS: MONTELUKAST 10 MG TABLET PO SCH ×2 (09:21→20:14)
[2018-11-15] MEDS: ENOXAPARIN 40 MG/0.4 ML SYRINGE SUBCUT SCH (09:51)
[2018-11-15] MEDS ORDERED: FUROSEMIDE 20 MG/2 ML VIAL IV ONE ×2 (14:47→15:00)
[2018-11-16] MEDS: methylPREDNISolone SOD SUC 40 MG/1 ML VIAL IV SCH ×2 (01:21→09:37)
[2018-11-16] MEDS: ALBUTEROL/IPRATROPIUM 3 ML NEB RESP TX SCH ×2 (01:22→07:49)
[2018-11-16 05:20] LABS: Calcium 6.9 MG/DL (8.5-10.1); Osmolality,Calculated 283.3 MOS/KG (273-304); Potassium 3.2 MMOL/L (3.5-5.1)
[2018-11-16 05:22] LABS: Hematocrit 32.6 VOL% (35.7-47.0); Hemoglobin 10.3 GM/DL (12.0-16.0); Immature Granulocytes % 0.5 %; Immature Granulocytes Absolute 0.04 #; Lymphocytes # 0.4 10*3/uL (1.4-4.0); Lymphocytes % 5.7 % (21.3-54.2); Mean Corpuscular HGB Conc 31.6 GM/DL (32-36); Mean Corpuscular Hemoglobin 29 PG (27-34); Mean Corpuscular Volume 92.4 FL (87-102); Mean Platelet Volume 12.4 FL (9.6-12.0); Monocytes # 0.5 10*3/uL (0.11-0.8); Monocytes % 6.3 % (1.7-12.7); Neutrophils # 6.8 10*3/uL (1.4-7.4); Neutrophils % 87.5 % (38.7-73.9); Platelet Count 155 T/CUMM (130-400); Red Blood Count 3.53 MC/CUMM (3.8-5.5); White Blood Count 7.8 T/CUMM (4-12)
[2018-11-16] MEDS ORDERED: POTASSIUM CHLORIDE 20 MEQ TABLET PO ONE (07:28)
[2018-11-16] MEDS: ENOXAPARIN 40 MG/0.4 ML SYRINGE SUBCUT SCH (09:37)
[2018-11-16] MEDS: MONTELUKAST 10 MG TABLET PO SCH (09:37)
[2018-11-16] MEDS: LORATADINE 10 MG TABLET PO SCH (09:38)
[2018-11-16] MEDS: amLODIPine 5 MG TABLET PO SCH (09:38)
[2018-11-16] MEDS: FLUTICASONE 50 MCG NASAL SPRAY 16 GM BOTTLE BOTH NARES SCH (09:39)
[2018-11-16] MEDS ORDERED: BUDESONIDE/FORMOTEROL 160-4.5 INHALER 6 GM INH SCH (10:30)
[2018-11-16 11:44] VITALS: BP 119/86
== END 2018-11-16 15:15 | disposition home or self-care (01) ==
LOC: N.EDINP 21:28 → N.ED 21:28 → N.5E 11-14 03:20
PROVIDERS: ADMIT Internal Medicine; ATTEND Internal Medicine

== ENCOUNTER 2018-12-12 02:50 | Observation (INO) ==
[2018-12-12] MEDS ORDERED: SODIUM CHLORIDE 0.9% 1,000 ML IV STA (03:22)
[2018-12-12] MEDS ORDERED: methylPREDNISolone SOD SUC 125 MG/2 ML VIAL IV STA (03:36)
[2018-12-12] MEDS ORDERED: ALBUTEROL/IPRATROPIUM 3 ML NEB RESP TX STA (03:36)
[2018-12-12 03:48] LABS: Basophils % 0.3 % (0.0-0.8); Eosinophils # 0.8 10*3/uL (0.0-0.87); Eosinophils % 6.9 % (0.00-10.9); Hematocrit 40.5 VOL% (35.7-47.0); Hemoglobin 12.3 GM/DL (12.0-16.0); Immature Granulocytes % 0.3 %; Immature Granulocytes Absolute 0.04 #; Lymphocytes # 1.6 10*3/uL (1.4-4.0); Mean Corpuscular HGB Conc 30.4 GM/DL (32-36); Mean Corpuscular Volume 93.8 FL (87-102); Mean Platelet Volume 12.3 FL (9.6-12.0); Monocytes % 12.1 % (1.7-12.7); Neutrophils % 67.4 % (38.7-73.9); Platelet Count 180 T/CUMM (130-400); Red Blood Count 4.32 MC/CUMM (3.8-5.5); Red Cell Distribution Width 13.1 % (9.3-17.3); White Blood Count 12.1 T/CUMM (4-12)
[2018-12-12 03:59] LABS: Alanine Aminotransferase 17 U/L (13-56); Albumin 3.6 G/DL (3.4-5.0); Alkaline Phosphatase 51 U/L (45-117); Aspartate Amino Transferase 16 U/L (0-37); Bilirubin,Total < 0.39 MG/DL (0.2-1.0); Blood Urea Nitrogen 14 MG/DL (7-18); Calcium 8.9 MG/DL (8.5-10.1); Glucose 97 MG/DL (74-106); Osmolality,Calculated 283.1 MOS/KG (273-304); Total Protein 7.3 G/DL (6.4-8.3)
[2018-12-12] MEDS ORDERED: ACETAMINOPHEN 325 MG TABLET PO PRN (04:59)
[2018-12-12] MEDS ORDERED: guaiFENesin/DM ER 600-30 MG TABLET PO PRN (05:04)
[2018-12-12] MEDS ORDERED: BISACODYL 5 MG TABLET PO PRN (05:04)
[2018-12-12] MEDS ORDERED: ONDANSETRON 4 MG/2 ML VIAL IV PRN (05:10)
[2018-12-12] MEDS ORDERED: ALBUTEROL 1.25 MG/3 ML NEB RESP TX PRN (05:10)
[2018-12-12] MEDS: ENOXAPARIN 40 MG/0.4 ML SYRINGE SUBCUT SCH (06:20)
[2018-12-12] MEDS: ALBUTEROL/IPRATROPIUM 3 ML NEB RESP TX SCH ×3 (07:40→18:35)
[2018-12-12] MEDS: BUDESONIDE/FORMOTEROL 160-4.5 INHALER 6 GM INH SCH ×2 (08:05→20:24)
[2018-12-12] MEDS: PANTOPRAZOLE 40 MG TABLET PO SCH (08:06)
[2018-12-12] MEDS: methylPREDNISolone SOD SUC 125 MG/2 ML VIAL IV SCH ×3 (13:30→23:20)
[2018-12-12] MEDS: AMOXICILLIN/CLAV 875 MG TABLET PO SCH ×2 (15:27→20:24)
[2018-12-12] MEDS: LEVALBUTEROL 1.25 MG/3 ML NEB RESP TX SCH (18:35)
[2018-12-12] MEDS: MONTELUKAST 10 MG TABLET PO SCH (20:24)
[2018-12-13] MEDS: LEVALBUTEROL 1.25 MG/3 ML NEB RESP TX SCH ×4 (00:05→18:40)
[2018-12-13] MEDS: ALBUTEROL/IPRATROPIUM 3 ML NEB RESP TX SCH ×4 (00:05→18:40)
[2018-12-13 03:50] LABS: Basophils % 0.1 % (0.0-0.8); Hematocrit 33.6 VOL% (35.7-47.0); Hemoglobin 10.2 GM/DL (12.0-16.0); Immature Granulocytes % 0.4 %; Immature Granulocytes Absolute 0.04 #; Lymphocytes # 0.4 10*3/uL (1.4-4.0); Lymphocytes % 4.7 % (21.3-54.2); Mean Corpuscular HGB Conc 30.4 GM/DL (32-36); Mean Corpuscular Volume 92.8 FL (87-102); Mean Platelet Volume 11.6 FL (9.6-12.0); Monocytes % 7.1 % (1.7-12.7); Neutrophils % 87.7 % (38.7-73.9); Platelet Count 174 T/CUMM (130-400); Red Blood Count 3.62 MC/CUMM (3.8-5.5); Red Cell Distribution Width 13.1 % (9.3-17.3)
[2018-12-13 04:07] LABS: Calcium 8.5 MG/DL (8.5-10.1); Osmolality,Calculated 286.3 MOS/KG (273-304)
[2018-12-13 04:13] LABS: Lymphocytes 6 % (20-55); Segmented Neutrophils 86 % (50-85); Total Cells Counted 100
[2018-12-13 04:14] LABS: Hypochromasia 1+; Platelet Estimate Normal
[2018-12-13] MEDS: methylPREDNISolone SOD SUC 125 MG/2 ML VIAL IV SCH (05:36)
[2018-12-13] MEDS: ENOXAPARIN 40 MG/0.4 ML SYRINGE SUBCUT SCH (05:37)
[2018-12-13] MEDS: PANTOPRAZOLE 40 MG TABLET PO SCH (08:33)
[2018-12-13] MEDS: AMOXICILLIN/CLAV 875 MG TABLET PO SCH ×2 (08:33→20:42)
[2018-12-13] MEDS: BUDESONIDE/FORMOTEROL 160-4.5 INHALER 6 GM INH SCH ×2 (08:39→20:42)
[2018-12-13] MEDS: methylPREDNISolone SOD SUC 40 MG/1 ML VIAL IV SCH (20:42)
[2018-12-13] MEDS: MONTELUKAST 10 MG TABLET PO SCH (20:42)
[2018-12-14] MEDS: ENOXAPARIN 40 MG/0.4 ML SYRINGE SUBCUT SCH (05:33)
[2018-12-14] MEDS: ALBUTEROL/IPRATROPIUM 3 ML NEB RESP TX SCH ×2 (07:28)
[2018-12-14] MEDS: LEVALBUTEROL 1.25 MG/3 ML NEB RESP TX SCH ×2 (07:28)
[2018-12-14] MEDS: methylPREDNISolone SOD SUC 40 MG/1 ML VIAL IV SCH (08:14)
[2018-12-14] MEDS: AMOXICILLIN/CLAV 875 MG TABLET PO SCH (08:14)
[2018-12-14] MEDS: PANTOPRAZOLE 40 MG TABLET PO SCH (08:14)
[2018-12-14] MEDS: BUDESONIDE/FORMOTEROL 160-4.5 INHALER 6 GM INH SCH (08:15)
[2018-12-14 13:24] VITALS: BP 154/81
== END 2018-12-14 13:05 | disposition home or self-care (01) ==
LOC: EDUNIT# → EDBD → N.ED 02:50 → N.EDINP 02:50 → N.5E 05:28
PROVIDERS: ADMIT Internal Medicine; ATTEND Internal Medicine

== ENCOUNTER 2019-01-16 16:16 | Inpatient (IN) ==
[2019-01-16] MEDS ORDERED: methylPREDNISolone SOD SUC 125 MG/2 ML VIAL IV STA (16:44)
[2019-01-16] MEDS ORDERED: ONDANSETRON 4 MG/2 ML VIAL IV STA (16:44)
[2019-01-16] MEDS ORDERED: cefTRIAXone 1,000 MG in SODIUM CHLORIDE 0.9% 100 ML IV STA (16:44)
[2019-01-16] MEDS ORDERED: SODIUM CHLORIDE 0.9% 500 ML IV STA (16:44)
[2019-01-16] MEDS ORDERED: ALBUTEROL 2.5 MG/3 ML NEB RESP TX SCH (17:00)
[2019-01-16 17:24] LABS: Basophils # 0.1 10*3/uL (0.0-0.2); Basophils % 0.6 % (0.0-0.8); Eosinophils # 0.3 10*3/uL (0.0-0.87); Hematocrit 43.5 VOL% (35.7-47.0); Hemoglobin 13.8 GM/DL (12.0-16.0); Immature Granulocytes % 0.3 %; Immature Granulocytes Absolute 0.03 #; Lymphocytes # 1.7 10*3/uL (1.4-4.0); Lymphocytes % 15.6 % (21.3-54.2); Mean Corpuscular HGB Conc 31.7 GM/DL (32-36); Mean Corpuscular Volume 89.3 FL (87-102); Mean Platelet Volume 12.2 FL (9.6-12.0); Monocytes % 10.3 % (1.7-12.7); Neutrophils % 70.2 % (38.7-73.9); Platelet Count 161 T/CUMM (130-400); Red Blood Count 4.87 MC/CUMM (3.8-5.5); Red Cell Distribution Width 13.6 % (9.3-17.3); White Blood Count 10.6 T/CUMM (4-12)
[2019-01-16 17:35] LABS: ABG Base Excess -3.2 MMOL/L (-2.5-2.5); ABG HCO3 22.6 MMOL/L (20-26); ABG Oxygen Saturation 93.9 % (95-100); ABG PCO2 43.7 MM HG (35-48); ABG PH 7.332 (7.35-7.45); ABG PO2 77.3 MM HG (80-95)
[2019-01-16 17:42] LABS: INR 1.1; PT Patient Result 11.4 SECS
[2019-01-16 17:57] LABS: Alanine Aminotransferase 16 U/L (13-56); Albumin 3.7 G/DL (3.4-5.0); Alkaline Phosphatase 46 U/L (45-117); Aspartate Amino Transferase 18 U/L (0-37); Blood Urea Nitrogen 16 MG/DL (7-18); Calcium 9.1 MG/DL (8.5-10.1); Glucose 63 MG/DL (74-106); Osmolality,Calculated 277.4 MOS/KG (273-304); Total Protein 7.4 G/DL (6.4-8.3); Troponin I < 0.015 NG/ML (0.00-0.045)
[2019-01-16] MEDS ORDERED: DEXTROSE 50% 25 GM/50 ML VIAL IV STA (18:14)
[2019-01-16] MEDS ORDERED: DEXTROSE 50% 25 GM/50 ML SYRINGE IV ONE (18:28)
[2019-01-16] MEDS ORDERED: ONDANSETRON 4 MG/2 ML VIAL IV PRN (19:41)
[2019-01-16] MEDS ORDERED: ACETAMINOPHEN 325 MG TABLET PO PRN (19:41)
[2019-01-16 20:15] LABS: Apearance,Urine Slightly Hazy (Clear); Bacteria,Urine Occasional /HPF (Few); Bilirubin,Urine Negative (Negative); Blood, Urine Negative (Negative); Glucose,Urine (UA) >=500 mg/dL (Negative); Ketones,Urine 80 mg/dL (Negative); Mucus,Urine Many /LPF (Occasional); Nitrite,Urine Negative (Negative); Protein,Urine Negative; RBC,Urine 2 /HPF (0-4); Squamous Epithelial Cell,Urine Few /HPF (0-10); Urine Color Yellow (Yellow); Urine Urobilinogen < 2.0 EU/DL (0.2-1.0); WBC,Urine 1 /HPF (0-6)
[2019-01-16] MEDS ORDERED: AZITHROMYCIN INJ 500 MG in SODIUM CHLORIDE 0.9% 250 ML IV SCH (21:00)
[2019-01-16] MEDS ORDERED: MONTELUKAST 10 MG TABLET PO SCH (21:00)
[2019-01-16] MEDS: ALBUTEROL/IPRATROPIUM 3 ML NEB RESP TX SCH (23:52)
[2019-01-17] MEDS: ENOXAPARIN 40 MG/0.4 ML SYRINGE SUBCUT SCH ×2 (01:44→21:15)
[2019-01-17] MEDS: methylPREDNISolone SOD SUC 125 MG/2 ML VIAL IV SCH ×3 (01:45→15:10)
[2019-01-17] MEDS: SODIUM CHLORIDE 0.45% 1,000 ML IV SCH ×4 (01:54→17:58)
[2019-01-17] MEDS: ALBUTEROL/IPRATROPIUM 3 ML NEB RESP TX SCH ×4 (03:22→14:51)
[2019-01-17 03:53] LABS: ABG Base Excess -2.8 MMOL/L (-2.5-2.5); ABG Oxygen Saturation 95.3 % (95-100); ABG PCO2 43.4 MM HG (35-48); ABG PH 7.334 (7.35-7.45); ABG PO2 82.1 MM HG (80-95); ABG TCO2 20.6 MMOL/L (23-27); Allen Test Positive
[2019-01-17 04:53] LABS: Hematocrit 39.1 VOL% (35.7-47.0); Hemoglobin 11.8 GM/DL (12.0-16.0); Immature Granulocytes % 1.1 %; Immature Granulocytes Absolute 0.05 #; Lymphocytes # 0.3 10*3/uL (1.4-4.0); Mean Corpuscular HGB Conc 30.2 GM/DL (32-36); Mean Corpuscular Volume 91.4 FL (87-102); Mean Platelet Volume 12.9 FL (9.6-12.0); Monocytes % 5.8 % (1.7-12.7); Neutrophils % 87.1 % (38.7-73.9); Platelet Count 140 T/CUMM (130-400); Red Blood Count 4.28 MC/CUMM (3.8-5.5); Red Cell Distribution Width 13.6 % (9.3-17.3); White Blood Count 4.6 T/CUMM (4-12)
[2019-01-17 05:49] LABS: Calcium 8.9 MG/DL (8.5-10.1); Osmolality,Calculated 286.5 MOS/KG (273-304)
[2019-01-17] MEDS: PANTOPRAZOLE 40 MG TABLET PO SCH (08:52)
[2019-01-17] MEDS ORDERED: LORazepam 2 MG/1 ML VIAL IV ONE (14:30)
[2019-01-17] MEDS ORDERED: dilTIAZem Drip 125 MG/125 ML PREMIX IV ONE (14:30)
[2019-01-17] MEDS ORDERED: AMIODARONE 450 MG/9 ML VIAL IV ONE (14:41)
[2019-01-17] MEDS ORDERED: AMIODARONE 150 MG/3 ML VIAL ONE (14:41)
[2019-01-17] MEDS ORDERED: AMIODARONE INJ 150 MG in DEXTROSE 5% 100 ML IV ONE (14:59)
[2019-01-17] MEDS ORDERED: AMIODARONE INJ 450 MG in DEXTROSE 5% 241 ML IV SCH ×2 (15:00→21:00)
[2019-01-17] MEDS ORDERED: dilTIAZem Drip 125 MG/125 ML PREMIX IV SCH (15:00)
[2019-01-17] MEDS: methylPREDNISolone SOD SUC 40 MG/1 ML VIAL IV SCH ×2 (15:28→23:10)
[2019-01-17] MEDS ORDERED: SODIUM CHLORIDE 3% 4 ML NEB RESP TX PRN (15:50)
[2019-01-17 16:00] LABS: Troponin I < 0.015 NG/ML (0.00-0.045)
[2019-01-17 18:49] LABS: Troponin I < 0.015 NG/ML (0.00-0.045)
[2019-01-17] MEDS ORDERED: ALBUTEROL 1.25 MG/3 ML NEB RESP TX SCH (19:00)
[2019-01-17] MEDS: LEVALBUTEROL 0.63 MG/3 ML NEB RESP TX SCH (19:33)
[2019-01-17] MEDS ORDERED: NEBIVOLOL 5 MG TABLET PO SCH (21:00)
[2019-01-17] MEDS: MONTELUKAST 10 MG TABLET PO SCH (21:15)
[2019-01-17] MEDS: DOXYCYCLINE HYCLATE 100 MG CAPSULE PO SCH (21:16)
[2019-01-17 21:41] LABS: Troponin I < 0.015 NG/ML (0.00-0.045)
[2019-01-18] MEDS: LEVALBUTEROL 0.63 MG/3 ML NEB RESP TX SCH ×4 (01:25→19:15)
[2019-01-18] MEDS: SODIUM CHLORIDE 0.45% 1,000 ML IV SCH ×3 (03:22→18:20)
[2019-01-18 03:52] LABS: Basophils % 0.1 % (0.0-0.8); Eosinophils % 0.1 % (0.00-10.9); Hematocrit 36.6 VOL% (35.7-47.0); Immature Granulocytes % 0.5 %; Immature Granulocytes Absolute 0.05 #; Lymphocytes # 0.5 10*3/uL (1.4-4.0); Lymphocytes % 4.1 % (21.3-54.2); Mean Corpuscular HGB Conc 30.1 GM/DL (32-36); Mean Corpuscular Volume 92.2 FL (87-102); Mean Platelet Volume 12.2 FL (9.6-12.0); Monocytes % 3.9 % (1.7-12.7); Neutrophils % 91.3 % (38.7-73.9); Platelet Count 133 T/CUMM (130-400); Red Blood Count 3.97 MC/CUMM (3.8-5.5); Red Cell Distribution Width 13.8 % (9.3-17.3)
[2019-01-18 04:06] LABS: Calcium 8.2 MG/DL (8.5-10.1)
[2019-01-18 04:52] LABS: Lymphocytes 1 % (20-55); Segmented Neutrophils 96 % (50-85); Total Cells Counted 100
[2019-01-18 04:53] LABS: Anisocytosis 1+; Platelet Estimate Adequate
[2019-01-18 06:25] LABS: Barbiturates Screen,Urine Negative (Negative); Benzodiazepines Screen,Urine Negative (Negative); Cannabinoid Screen,Urine Negative (Negative); Opiate Screen,Urine Negative (Negative); Phencyclidine Screen,Urine Negative (Negative)
[2019-01-18 07:25] LABS: Free T4 (Free Thyroxine) 0.88 NG/DL (0.76-1.46); Thyroid Stimulating Hormone 0.41 uIU/ml (0.358-3.74)
[2019-01-18] MEDS: PANTOPRAZOLE 40 MG TABLET PO SCH (08:21)
[2019-01-18] MEDS: DILTIAZEM CD 120 MG CAPSULE PO SCH (08:22)
[2019-01-18] MEDS: MONTELUKAST 10 MG TABLET PO SCH ×2 (08:22→20:41)
[2019-01-18] MEDS: DOXYCYCLINE HYCLATE 100 MG CAPSULE PO SCH ×2 (08:22→20:41)
[2019-01-18] MEDS: methylPREDNISolone SOD SUC 40 MG/1 ML VIAL IV SCH ×3 (08:27→23:57)
[2019-01-18] MEDS: ENOXAPARIN 40 MG/0.4 ML SYRINGE SUBCUT SCH (20:41)
[2019-01-19] MEDS: LEVALBUTEROL 0.63 MG/3 ML NEB RESP TX SCH ×3 (00:21→12:20)
[2019-01-19] MEDS: SODIUM CHLORIDE 0.45% 1,000 ML IV SCH ×2 (02:25→15:49)
[2019-01-19 03:39] LABS: Basophils % 0.1 % (0.0-0.8); Hematocrit 35.6 VOL% (35.7-47.0); Hemoglobin 10.8 GM/DL (12.0-16.0); Immature Granulocytes % 0.4 %; Immature Granulocytes Absolute 0.04 #; Lymphocytes # 0.4 10*3/uL (1.4-4.0); Lymphocytes % 4.5 % (21.3-54.2); Mean Corpuscular HGB Conc 30.3 GM/DL (32-36); Mean Corpuscular Volume 90.8 FL (87-102); Mean Platelet Volume 12.6 FL (9.6-12.0); Monocytes % 4.5 % (1.7-12.7); Neutrophils % 90.5 % (38.7-73.9); Platelet Count 132 T/CUMM (130-400); Red Blood Count 3.92 MC/CUMM (3.8-5.5); Red Cell Distribution Width 13.9 % (9.3-17.3); White Blood Count 9.1 T/CUMM (4-12)
[2019-01-19 03:57] LABS: Calcium 8.3 MG/DL (8.5-10.1); Osmolality,Calculated 282.4 MOS/KG (273-304)
[2019-01-19 04:14] LABS: Lymphocytes 5 % (20-55); Microcytosis 1+; Segmented Neutrophils 94 % (50-85); Total Cells Counted 100
[2019-01-19 04:15] LABS: Ovalocytes Slight; Platelet Estimate Adequate
[2019-01-19] MEDS: MONTELUKAST 10 MG TABLET PO SCH (08:41)
[2019-01-19] MEDS: DILTIAZEM CD 120 MG CAPSULE PO SCH (08:41)
[2019-01-19] MEDS: DOXYCYCLINE HYCLATE 100 MG CAPSULE PO SCH (08:41)
[2019-01-19] MEDS: PANTOPRAZOLE 40 MG TABLET PO SCH (08:41)
[2019-01-19] MEDS: methylPREDNISolone SOD SUC 40 MG/1 ML VIAL IV SCH ×2 (08:41→15:49)
[2019-01-19 12:03] VITALS: BP 121/76
== END 2019-01-19 17:33 | disposition home or self-care (01) | DRG 201 ==
LOC: EDUNIT# → EDBD → N.ED 16:16 → N.EDINP 16:16 → N.5E 20:26 → N.TELEN 01-17 14:25
PROVIDERS: ADMIT Internal Medicine; ATTEND Internal Medicine

== ENCOUNTER 2019-02-09 12:42 | Observation (INO) ==
[2019-02-09 15:09] LABS: Basophils # 0.1 10*3/uL (0.0-0.2); Basophils % 0.8 % (0.0-0.8); Eosinophils # 0.7 10*3/uL (0.0-0.87); Eosinophils % 10.8 % (0.00-10.9); Hematocrit 40.1 VOL% (35.7-47.0); Hemoglobin 12.5 GM/DL (12.0-16.0); Immature Granulocytes % 0.3 %; Immature Granulocytes Absolute 0.02 #; Lymphocytes # 1.5 10*3/uL (1.4-4.0); Lymphocytes % 23.5 % (21.3-54.2); Mean Corpuscular HGB Conc 31.2 GM/DL (32-36); Mean Corpuscular Volume 89.1 FL (87-102); Mean Platelet Volume 12.8 FL (9.6-12.0); Monocytes % 11.9 % (1.7-12.7); Neutrophils % 52.7 % (38.7-73.9); Platelet Count 131 T/CUMM (130-400); Red Cell Distribution Width 14.2 % (9.3-17.3); White Blood Count 6.5 T/CUMM (4-12)
[2019-02-09 15:29] LABS: Albumin 3.9 G/DL (3.4-5.0); Bilirubin,Total 0.9 MG/DL (0.2-1.0); Calcium 8.7 MG/DL (8.5-10.1)
[2019-02-09] MEDS ORDERED: ALBUTEROL/IPRATROPIUM 3 ML NEB RESP TX STA (15:42)
[2019-02-09] MEDS ORDERED: cloNIDine 0.1 MG TABLET PO STA (15:43)
[2019-02-09] MEDS ORDERED: methylPREDNISolone SOD SUC 125 MG/2 ML VIAL IV STA (15:44)
[2019-02-09] MEDS ORDERED: ONDANSETRON 4 MG/2 ML VIAL IV PRN (18:22)
[2019-02-09] MEDS ORDERED: ACETAMINOPHEN 325 MG TABLET PO PRN (18:22)
[2019-02-09] MEDS ORDERED: ALBUTEROL/IPRATROPIUM 3 ML NEB RESP TX PRN (18:31)
[2019-02-09] MEDS: ALBUTEROL/IPRATROPIUM 3 ML NEB RESP TX SCH (18:47)
[2019-02-09] MEDS: ALBUTEROL 2.5 MG/3 ML NEB RESP TX SCH (20:03)
[2019-02-09] MEDS: MONTELUKAST 10 MG TABLET PO SCH (21:10)
[2019-02-10] MEDS: ALBUTEROL 2.5 MG/3 ML NEB RESP TX SCH ×4 (00:12→20:23)
[2019-02-10] MEDS: ALBUTEROL/IPRATROPIUM 3 ML NEB RESP TX SCH ×3 (00:12→13:33)
[2019-02-10 01:19] LABS: Apearance,Urine CLEAR (Clear); Bilirubin,Urine Negative (Negative); Blood, Urine Negative (Negative); Glucose,Urine (UA) Negative (Negative); Ketones,Urine 20 mg/dL (Negative); Mucus,Urine Occasional /LPF (Occasional); Nitrite,Urine Negative (Negative); Protein,Urine Negative; RBC,Urine 1 /HPF (0-4); Squamous Epithelial Cell,Urine Occasional /HPF (0-10); Urine Color Yellow (Yellow); Urine Specific Gravity > 1.060 (1.001-1.035); Urine Urobilinogen < 2.0 EU/DL (0.2-1.0); WBC,Urine 1 /HPF (0-6)
[2019-02-10] MEDS ORDERED: methylPREDNISolone SOD SUC 40 MG/1 ML VIAL IV SCH (03:00)
[2019-02-10 06:40] LABS: Basophils % 0.2 % (0.0-0.8); Eosinophils % 0.2 % (0.00-10.9); Hematocrit 37.8 VOL% (35.7-47.0); Hemoglobin 11.5 GM/DL (12.0-16.0); Immature Granulocytes % 0.4 %; Immature Granulocytes Absolute 0.02 #; Lymphocytes # 0.6 10*3/uL (1.4-4.0); Lymphocytes % 10.7 % (21.3-54.2); Mean Corpuscular HGB Conc 30.4 GM/DL (32-36); Mean Corpuscular Volume 90.2 FL (87-102); Neutrophils % 73.5 % (38.7-73.9); Platelet Count 119 T/CUMM (130-400); Red Blood Count 4.19 MC/CUMM (3.8-5.5); Red Cell Distribution Width 14.2 % (9.3-17.3); White Blood Count 5.2 T/CUMM (4-12)
[2019-02-10 06:57] LABS: Calcium 8.9 MG/DL (8.5-10.1); Osmolality,Calculated 278.5 MOS/KG (273-304); Thyroid Stimulating Hormone 0.739 uIU/ml (0.358-3.74)
[2019-02-10] MEDS ORDERED: amLODIPine 5 MG TABLET PO SCH (09:00)
[2019-02-10] MEDS ORDERED: PANTOPRAZOLE 40 MG TABLET PO SCH (09:00)
[2019-02-10] MEDS: predniSONE 20 MG TABLET PO SCH (09:22)
[2019-02-10] MEDS: PANTOPRAZOLE 40 MG TABLET PO SCH (09:22)
[2019-02-10] MEDS: MONTELUKAST 10 MG TABLET PO SCH ×2 (09:22→20:29)
[2019-02-10] MEDS: DILTIAZEM CD 120 MG CAPSULE PO SCH (09:23)
[2019-02-10] MEDS: ENOXAPARIN 40 MG/0.4 ML SYRINGE SUBCUT SCH (09:23)
[2019-02-11] MEDS: ALBUTEROL 2.5 MG/3 ML NEB RESP TX SCH ×4 (01:40→18:58)
[2019-02-11] MEDS: ALBUTEROL/IPRATROPIUM 3 ML NEB RESP TX SCH ×3 (07:13→18:50)
[2019-02-11] MEDS: ENOXAPARIN 40 MG/0.4 ML SYRINGE SUBCUT SCH (09:44)
[2019-02-11] MEDS: MONTELUKAST 10 MG TABLET PO SCH ×2 (09:44→20:29)
[2019-02-11] MEDS: PANTOPRAZOLE 40 MG TABLET PO SCH (09:44)
[2019-02-11] MEDS: predniSONE 20 MG TABLET PO SCH (09:44)
[2019-02-11] MEDS: DILTIAZEM CD 120 MG CAPSULE PO SCH (09:44)
[2019-02-12] MEDS: ALBUTEROL/IPRATROPIUM 3 ML NEB RESP TX SCH ×2 (00:18→07:26)
[2019-02-12] MEDS: ALBUTEROL 2.5 MG/3 ML NEB RESP TX SCH (07:26)
[2019-02-12] MEDS: predniSONE 20 MG TABLET PO SCH (08:19)
[2019-02-12] MEDS: ENOXAPARIN 40 MG/0.4 ML SYRINGE SUBCUT SCH (08:19)
[2019-02-12] MEDS: PANTOPRAZOLE 40 MG TABLET PO SCH (08:19)
[2019-02-12] MEDS: DILTIAZEM CD 120 MG CAPSULE PO SCH (08:19)
[2019-02-12] MEDS: MONTELUKAST 10 MG TABLET PO SCH ×2 (08:19→20:21)
[2019-02-12 20:56] VITALS: BP 133/90
== END 2019-02-12 21:15 | disposition home or self-care (01) ==
LOC: EDBD → EDUNIT# → N.EDINP 12:42 → N.ED 12:42 → SUATTDRO 18:20 → N.EDINP 20:12 → N.5E 20:39
PROVIDERS: ADMIT Internal Medicine; ATTEND Internal Medicine

== ENCOUNTER 2019-03-06 00:25 | Inpatient (IN) ==
[2019-03-06] MEDS ORDERED: ASPIRIN 325 MG TABLET PO STA (00:58)
[2019-03-06 01:05] LABS: Basophils # 0.1 10*3/uL (0.0-0.2); Basophils % 0.4 % (0.0-0.8); Eosinophils # 0.6 10*3/uL (0.0-0.87); Eosinophils % 5.6 % (0.00-10.9); Hematocrit 35.8 VOL% (35.7-47.0); Hemoglobin 10.9 GM/DL (12.0-16.0); Immature Granulocytes % 0.4 %; Immature Granulocytes Absolute 0.05 #; Lymphocytes # 1.2 10*3/uL (1.4-4.0); Lymphocytes % 10.6 % (21.3-54.2); Mean Corpuscular HGB Conc 30.4 GM/DL (32-36); Mean Corpuscular Volume 90.6 FL (87-102); Mean Platelet Volume 12.2 FL (9.6-12.0); Monocytes % 13.2 % (1.7-12.7); Neutrophils % 69.8 % (38.7-73.9); Platelet Count 128 T/CUMM (130-400); Red Blood Count 3.95 MC/CUMM (3.8-5.5); Red Cell Distribution Width 14.1 % (9.3-17.3); White Blood Count 11.4 T/CUMM (4-12)
[2019-03-06 01:10] LABS: PT Patient Result 10.6 SECS
[2019-03-06 01:19] LABS: Alanine Aminotransferase 11 U/L (13-56); Alkaline Phosphatase 41 U/L (45-117); Aspartate Amino Transferase 8 U/L (0-37); Blood Urea Nitrogen 11 MG/DL (7-18); Calcium 8.7 MG/DL (8.5-10.1); Glucose 131 MG/DL (74-106); Osmolality,Calculated 277.5 MOS/KG (273-304); Total Protein 6.9 G/DL (6.4-8.3); Troponin I < 0.015 NG/ML (0.00-0.045)
[2019-03-06] MEDS ORDERED: VANCOMYCIN INJ 1,000 MG in SODIUM CHLORIDE 0.9% 250 ML IV STA (02:57)
[2019-03-06] MEDS ORDERED: PIPERACILLIN/TAZOBACTAM 3,375 MG in SODIUM CHLORIDE 0.9% 100 ML IV STA (02:57)
[2019-03-06] MEDS ORDERED: MORPHINE 4 MG/1 ML VIAL IV ONE (03:19)
[2019-03-06] MEDS ORDERED: ONDANSETRON 4 MG/2 ML VIAL IV ONE (03:19)
[2019-03-06] MEDS ORDERED: ALBUTEROL/IPRATROPIUM 3 ML NEB RESP TX STA (03:38)
[2019-03-06] MEDS ORDERED: VANCOMYCIN 1,000 MG VIAL ONE (03:52)
[2019-03-06] MEDS ORDERED: ONDANSETRON 4 MG/2 ML VIAL IV PRN (05:28)
[2019-03-06] MEDS ORDERED: MORPHINE 4 MG/1 ML VIAL IV PRN (05:28)
[2019-03-06] MEDS: ALBUTEROL/IPRATROPIUM 3 ML NEB RESP TX SCH ×3 (08:05→19:19)
[2019-03-06] MEDS: LEVOFLOXACIN INJ 750 MG in PREMIX 1 EACH IV SCH (09:32)
[2019-03-06] MEDS: PANTOPRAZOLE 40 MG TABLET PO SCH (09:32)
[2019-03-06] MEDS: ENOXAPARIN 40 MG/0.4 ML SYRINGE SUBCUT SCH (09:32)
[2019-03-06] MEDS: MONTELUKAST 10 MG TABLET PO SCH ×2 (09:41→20:56)
[2019-03-06] MEDS: amLODIPine 5 MG TABLET PO SCH (09:42)
[2019-03-06] MEDS: DILTIAZEM CD 120 MG CAPSULE PO SCH (09:42)
[2019-03-06] MEDS: PIPERACILLIN/TAZOBACTAM 3,375 MG in SODIUM CHLORIDE 0.9% 100 ML IV SCH ×2 (13:20→20:56)
[2019-03-06] MEDS: POTASSIUM CHLORIDE 20 MEQ TABLET PO PRN ×4 (15:44→23:41)
[2019-03-07] MEDS: ALBUTEROL/IPRATROPIUM 3 ML NEB RESP TX SCH ×2 (00:05→07:52)
[2019-03-07] MEDS: PIPERACILLIN/TAZOBACTAM 3,375 MG in SODIUM CHLORIDE 0.9% 100 ML IV SCH ×3 (04:45→21:10)
[2019-03-07 04:58] LABS: Basophils % 0.4 % (0.0-0.8); Eosinophils # 0.7 10*3/uL (0.0-0.87); Eosinophils % 6.7 % (0.00-10.9); Hematocrit 37.3 VOL% (35.7-47.0); Hemoglobin 11.5 GM/DL (12.0-16.0); Immature Granulocytes % 0.5 %; Immature Granulocytes Absolute 0.05 #; Lymphocytes # 0.9 10*3/uL (1.4-4.0); Lymphocytes % 9.2 % (21.3-54.2); Mean Corpuscular HGB Conc 30.8 GM/DL (32-36); Mean Corpuscular Volume 91.4 FL (87-102); Mean Platelet Volume 13.2 FL (9.6-12.0); Monocytes % 15.1 % (1.7-12.7); Neutrophils % 68.1 % (38.7-73.9); Platelet Count 156 T/CUMM (130-400); Red Blood Count 4.08 MC/CUMM (3.8-5.5); Red Cell Distribution Width 14.3 % (9.3-17.3); White Blood Count 10.2 T/CUMM (4-12)
[2019-03-07 05:17] LABS: Albumin 2.8 G/DL (3.4-5.0); Bilirubin,Total 1.2 MG/DL (0.2-1.0); Calcium 8.9 MG/DL (8.5-10.1); Osmolality,Calculated 274.5 MOS/KG (273-304); Total Protein 6.9 G/DL (6.4-8.3)
[2019-03-07] MEDS: DILTIAZEM CD 120 MG CAPSULE PO SCH (08:38)
[2019-03-07] MEDS: LEVOFLOXACIN INJ 750 MG in PREMIX 1 EACH IV SCH (08:39)
[2019-03-07] MEDS: ENOXAPARIN 40 MG/0.4 ML SYRINGE SUBCUT SCH (08:39)
[2019-03-07] MEDS: MONTELUKAST 10 MG TABLET PO SCH ×2 (08:39→21:09)
[2019-03-07] MEDS: PANTOPRAZOLE 40 MG TABLET PO SCH (08:39)
[2019-03-07] MEDS: amLODIPine 5 MG TABLET PO SCH (08:39)
[2019-03-07] MEDS ORDERED: LACTATED RINGERS 1,000 ML IV ONE (11:54)
[2019-03-07] MEDS ORDERED: LEVALBUTEROL 1.25 MG/3 ML NEB RESP TX PRN (11:57)
[2019-03-08] MEDS: PIPERACILLIN/TAZOBACTAM 3,375 MG in SODIUM CHLORIDE 0.9% 100 ML IV SCH (04:23)
[2019-03-08 05:49] LABS: Albumin 2.6 G/DL (3.4-5.0); Bilirubin,Total 0.6 MG/DL (0.2-1.0); Calcium 8.6 MG/DL (8.5-10.1); Osmolality,Calculated 274.5 MOS/KG (273-304); Total Protein 6.9 G/DL (6.4-8.3)
[2019-03-08] MEDS: LEVOFLOXACIN INJ 750 MG in PREMIX 1 EACH IV SCH (09:21)
[2019-03-08] MEDS: ENOXAPARIN 40 MG/0.4 ML SYRINGE SUBCUT SCH (09:21)
[2019-03-08] MEDS: PANTOPRAZOLE 40 MG TABLET PO SCH (09:22)
[2019-03-08] MEDS: MONTELUKAST 10 MG TABLET PO SCH (09:22)
[2019-03-08] MEDS: DILTIAZEM CD 120 MG CAPSULE PO SCH (09:22)
[2019-03-08 12:16] VITALS: BP 118/78
== END 2019-03-08 13:05 | disposition home or self-care (01) | DRG 139 ==
LOC: EDUNIT# → EDBD → N.ED 00:25 → N.EDINP 05:28 → SUATTDRO 05:28 → N.2E 07:10
PROVIDERS: ADMIT Internal Medicine; ATTEND Family Medicine

== ENCOUNTER 2019-09-07 14:25 | Observation (INO) ==
[2019-09-07] MEDS ORDERED: ALBUTEROL/IPRATROPIUM 3 ML NEB RESP TX STA (14:55)
[2019-09-07] MEDS ORDERED: methylPREDNISolone SOD SUC 125 MG/2 ML VIAL IV STA (15:59)
[2019-09-07] MEDS ORDERED: ALBUTEROL 2.5 MG/3 ML NEB RESP TX STA (16:02)
[2019-09-07 16:22] LABS: Basophils # 0.1 10*3/uL (0.0-0.2); Eosinophils # 0.7 10*3/uL (0.0-0.87); Eosinophils % 11.3 % (0.00-10.9); Hematocrit 42.8 VOL% (35.7-47.0); Hemoglobin 13.4 GM/DL (12.0-16.0); Lymphocytes # 1.5 10*3/uL (1.4-4.0); Lymphocytes % 25.7 % (21.3-54.2); Mean Corpuscular HGB Conc 31.3 GM/DL (32-36); Mean Corpuscular Volume 86.1 FL (87-102); Monocytes % 16.3 % (1.7-12.7); Neutrophils % 45.7 % (38.7-73.9); Platelet Count 182 T/CUMM (130-400); Red Blood Count 4.97 MC/CUMM (3.8-5.5); Red Cell Distribution Width 14.6 % (9.3-17.3)
[2019-09-07] MEDS ORDERED: cefTRIAXone 1,000 MG in SODIUM CHLORIDE 0.9% 100 ML IV STA (16:29)
[2019-09-07] MEDS ORDERED: BUDESONIDE 0.5 MG/2 ML NEB RESP TX STA (16:30)
[2019-09-07] MEDS ORDERED: ARFORMOTEROL 15 MCG/2 ML NEB RESP TX STA (16:30)
[2019-09-07 16:48] LABS: Albumin 3.5 G/DL (3.4-5.0); Bilirubin,Total 0.7 MG/DL (0.2-1.0); Calcium 9.1 MG/DL (8.5-10.1); Osmolality,Calculated 272.7 MOS/KG (273-304); Total Protein 7.3 G/DL (6.4-8.3)
[2019-09-07] MEDS ORDERED: ONDANSETRON 4 MG/2 ML VIAL IV PRN (17:09)
[2019-09-07] MEDS ORDERED: ACETAMINOPHEN 325 MG TABLET PO PRN (17:09)
[2019-09-07] MEDS ORDERED: ALBUTEROL 2.5 MG/3 ML NEB RESP TX PRN (17:09)
[2019-09-07] MEDS ORDERED: ZALEPLON 5 MG CAPSULE PO PRN (17:09)
[2019-09-07 17:44] LABS: Eosinophils 12 % (0-10); Lymphocytes 33 % (20-55); Platelet Estimate Normal; Segmented Neutrophils 42 % (50-85); Total Cells Counted 100
[2019-09-07] MEDS ORDERED: INFLUENZA VIRUS VACCINE 0.5 ML SYRINGE IM ONE (19:08)
[2019-09-07] MEDS: ALBUTEROL 2.5 MG/3 ML NEB RESP TX SCH (19:34)
[2019-09-07] MEDS ORDERED: MONTELUKAST 10 MG TABLET PO SCH (21:00)
[2019-09-07] MEDS: methylPREDNISolone SOD SUC 125 MG/2 ML VIAL IV SCH (21:27)
[2019-09-08] MEDS: ALBUTEROL 2.5 MG/3 ML NEB RESP TX SCH ×2 (01:00→06:54)
[2019-09-08] MEDS: methylPREDNISolone SOD SUC 125 MG/2 ML VIAL IV SCH ×2 (03:43→09:12)
[2019-09-08 05:53] LABS: Hematocrit 37.3 VOL% (35.7-47.0); Hemoglobin 11.6 GM/DL (12.0-16.0); Immature Granulocytes % 0.4 %; Immature Granulocytes Absolute 0.02 #; Lymphocytes # 0.4 10*3/uL (1.4-4.0); Lymphocytes % 8.2 % (21.3-54.2); Mean Corpuscular HGB Conc 31.1 GM/DL (32-36); Mean Corpuscular Volume 85.9 FL (87-102); Mean Platelet Volume 12.4 FL (9.6-12.0); Monocytes % 3.8 % (1.7-12.7); Neutrophils % 87.6 % (38.7-73.9); Platelet Count 169 T/CUMM (130-400); Red Blood Count 4.34 MC/CUMM (3.8-5.5); Red Cell Distribution Width 14.5 % (9.3-17.3); White Blood Count 5.2 T/CUMM (4-12)
[2019-09-08 06:36] LABS: Albumin 3.2 G/DL (3.4-5.0); Bilirubin,Total 1.1 MG/DL (0.2-1.0); Calcium 8.9 MG/DL (8.5-10.1); Total Protein 6.8 G/DL (6.4-8.3)
[2019-09-08 08:20] VITALS: BP 128/87
[2019-09-08] MEDS ORDERED: PANTOPRAZOLE 40 MG TABLET PO SCH (09:00)
[2019-09-08] MEDS ORDERED: cefTRIAXone 1,000 MG in SYRINGE 1 EACH IV SCH (15:00)
== END 2019-09-08 13:05 | disposition home or self-care (01) ==
LOC: N.EDINP 14:25 → N.ED 14:25 → N.2W 18:02
PROVIDERS: ADMIT Family Medicine; ATTEND Family Medicine

== ENCOUNTER 2019-12-12 09:17 | Observation (INO) ==
[2019-12-12] MEDS ORDERED: methylPREDNISolone SOD SUC 125 MG/2 ML VIAL IV STA (09:38)
[2019-12-12] MEDS ORDERED: ALBUTEROL NEB SOLN 5 MG/ML 20 ML/BOTTLE CONT NEB STA ×2 (09:38→11:31)
[2019-12-12 10:10] LABS: Calcium 9.2 MG/DL (8.5-10.1)
[2019-12-12 10:46] LABS: Basophils # 0.1 10*3/uL (0.0-0.2); Basophils % 1.1 % (0.0-0.8); Eosinophils # 0.6 10*3/uL (0.0-0.87); Eosinophils % 8.6 % (0.00-10.9); Hematocrit 47.5 VOL% (35.7-47.0); Hemoglobin 14.6 GM/DL (12.0-16.0); Immature Granulocytes % 0.2 %; Immature Granulocytes Absolute 0.01 #; Lymphocytes # 1.6 10*3/uL (1.4-4.0); Lymphocytes % 23.9 % (21.3-54.2); Mean Corpuscular HGB Conc 30.7 GM/DL (32-36); Mean Corpuscular Volume 87.8 FL (87-102); Mean Platelet Volume 11.6 FL (9.6-12.0); Monocytes % 11.8 % (1.7-12.7); Neutrophils % 54.4 % (38.7-73.9); Platelet Count 210 T/CUMM (130-400); Red Blood Count 5.41 MC/CUMM (3.8-5.5); Red Cell Distribution Width 14.1 % (9.3-17.3); White Blood Count 6.5 T/CUMM (4-12)
[2019-12-12] MEDS ORDERED: DEXTROSE 10% 250 ML BAG IV PRN (11:38)
[2019-12-12] MEDS ORDERED: ONDANSETRON 4 MG/2 ML VIAL IV PRN (11:38)
[2019-12-12] MEDS ORDERED: GLUCAGON 1 MG VIAL IM PRN (11:38)
[2019-12-12] MEDS ORDERED: ACETAMINOPHEN 325 MG TABLET PO PRN (11:38)
[2019-12-12] MEDS ORDERED: hydrALAZINE 20 MG/1 ML VIAL IV PRN (15:38)
[2019-12-12] MEDS: LEVALBUTEROL 0.63 MG/3 ML NEB RESP TX SCH ×3 (15:45→23:10)
[2019-12-12] MEDS ORDERED: ENOXAPARIN 40 MG/0.4 ML SYRINGE SUBCUT SCH (21:00)
[2019-12-12] MEDS: methylPREDNISolone SOD SUC 40 MG/1 ML VIAL IV SCH (21:25)
[2019-12-13] MEDS: LEVALBUTEROL 0.63 MG/3 ML NEB RESP TX SCH ×3 (03:10→11:10)
[2019-12-13] MEDS: methylPREDNISolone SOD SUC 40 MG/1 ML VIAL IV SCH (05:31)
[2019-12-13 06:50] LABS: Hematocrit 37.3 VOL% (35.7-47.0); Hemoglobin 11.8 GM/DL (12.0-16.0); Immature Granulocytes % 0.2 %; Immature Granulocytes Absolute 0.01 #; Lymphocytes # 0.6 10*3/uL (1.4-4.0); Lymphocytes % 9.8 % (21.3-54.2); Mean Corpuscular HGB Conc 31.6 GM/DL (32-36); Mean Corpuscular Volume 85.2 FL (87-102); Mean Platelet Volume 12.2 FL (9.6-12.0); Monocytes % 10.8 % (1.7-12.7); Neutrophils % 79.2 % (38.7-73.9); Platelet Count 185 T/CUMM (130-400); Red Blood Count 4.38 MC/CUMM (3.8-5.5); White Blood Count 6.1 T/CUMM (4-12)
[2019-12-13 07:17] LABS: Calcium 9.1 MG/DL (8.5-10.1); Osmolality,Calculated 276.7 MOS/KG (273-304); Thyroid Stimulating Hormone 0.366 uIU/ml (0.358-3.74)
[2019-12-13] MEDS ORDERED: PANTOPRAZOLE 40 MG TABLET PO SCH (09:00)
[2019-12-13 12:27] VITALS: BP 96/57
== END 2019-12-13 14:12 | disposition home or self-care (01) ==
LOC: N.ED 09:17 → N.EDINP 09:17 → N.3E 13:11
PROVIDERS: ADMIT Internal Medicine; ATTEND Internal Medicine

== ENCOUNTER 2020-02-18 17:01 | Observation (INO) ==
[2020-02-18] MEDS ORDERED: methylPREDNISolone SOD SUC 125 MG/2 ML VIAL IV STA (17:27)
[2020-02-18] MEDS ORDERED: SODIUM CHLORIDE 0.9% 1,000 ML IV STA (17:27)
[2020-02-18] MEDS ORDERED: ALBUTEROL 2.5 MG/3 ML NEB RESP TX STA (17:30)
[2020-02-18 17:57] LABS: Basophils % 0.4 % (0.0-0.8); Eosinophils # 0.2 10*3/uL (0.0-0.87); Eosinophils % 2.5 % (0.00-10.9); Hematocrit 40.2 VOL% (35.7-47.0); Hemoglobin 12.5 GM/DL (12.0-16.0); Immature Granulocytes % 0.2 %; Immature Granulocytes Absolute 0.02 #; Lymphocytes # 1.3 10*3/uL (1.4-4.0); Lymphocytes % 15.4 % (21.3-54.2); Mean Corpuscular HGB Conc 31.1 GM/DL (32-36); Mean Corpuscular Volume 86.6 FL (87-102); Mean Platelet Volume 11.2 FL (9.6-12.0); Monocytes % 10.6 % (1.7-12.7); Neutrophils % 70.9 % (38.7-73.9); Platelet Count 214 T/CUMM (130-400); Red Blood Count 4.64 MC/CUMM (3.8-5.5); Red Cell Distribution Width 13.6 % (9.3-17.3); White Blood Count 8.2 T/CUMM (4-12)
[2020-02-18] MEDS ORDERED: ALBUTEROL INHALER 18 GM INH ONE (18:00)
[2020-02-18 18:19] LABS: Albumin 3.3 G/DL (3.4-5.0); Bilirubin,Total 0.5 MG/DL (0.2-1.0); Calcium 8.5 MG/DL (8.5-10.1); Ferritin 33.8 ng/ml (8-252); Total Protein 7.3 G/DL (6.4-8.3)
[2020-02-18] MEDS ORDERED: ONDANSETRON 4 MG/2 ML VIAL IV PRN (20:35)
[2020-02-18] MEDS ORDERED: hydrALAZINE 20 MG/1 ML VIAL IV PRN (20:35)
[2020-02-18] MEDS ORDERED: DOCUSATE SODIUM 100 MG CAPSULE PO PRN (20:35)
[2020-02-18] MEDS ORDERED: MAGNESIUM SULF RIDER 4 GM in PREMIX 1 EACH IV PRN (21:16)
[2020-02-18] MEDS ORDERED: MAGNESIUM SULF RIDER 2 GM in PREMIX 1 EACH IV PRN (21:16)
[2020-02-18] MEDS ORDERED: POTASSIUM CHLORIDE 20 MEQ TABLET PO PRN (21:16)
[2020-02-18] MEDS: ALBUTEROL INHALER 18 GM INH SCH (21:52)
[2020-02-18] MEDS: ENOXAPARIN 40 MG/0.4 ML SYRINGE SUBCUT SCH (21:52)
[2020-02-18] MEDS: cefTRIAXone 1,000 MG in SYRINGE 1 EACH IV SCH (21:54)
[2020-02-18] MEDS ORDERED: ACETAMINOPHEN 500 MG TABLET PO STA (22:11)
[2020-02-19] MEDS: ALBUTEROL INHALER 18 GM INH SCH ×4 (02:05→20:56)
[2020-02-19 06:23] LABS: Basophils % 0.2 % (0.0-0.8); Hemoglobin 11.6 GM/DL (12.0-16.0); Immature Granulocytes % 0.2 %; Immature Granulocytes Absolute 0.01 #; Lymphocytes # 0.6 10*3/uL (1.4-4.0); Lymphocytes % 13.8 % (21.3-54.2); Mean Corpuscular HGB Conc 31.4 GM/DL (32-36); Mean Corpuscular Volume 85.6 FL (87-102); Mean Platelet Volume 12.3 FL (9.6-12.0); Monocytes % 11.8 % (1.7-12.7); Platelet Count 192 T/CUMM (130-400); Red Blood Count 4.32 MC/CUMM (3.8-5.5); Red Cell Distribution Width 13.3 % (9.3-17.3); White Blood Count 4.7 T/CUMM (4-12)
[2020-02-19 06:34] LABS: Calcium 8.5 MG/DL (8.5-10.1); Osmolality,Calculated 274.8 MOS/KG (273-304)
[2020-02-19] MEDS: AZITHROMYCIN 250 MG TABLET PO SCH (08:18)
[2020-02-19] MEDS: methylPREDNISolone SOD SUC 40 MG/1 ML VIAL IV SCH (08:18)
[2020-02-19] MEDS: cefTRIAXone 1,000 MG in SYRINGE 1 EACH IV SCH (20:56)
[2020-02-19] MEDS: ENOXAPARIN 40 MG/0.4 ML SYRINGE SUBCUT SCH (20:56)
[2020-02-19] MEDS: ACETAMINOPHEN 325 MG TABLET PO PRN (20:57)
[2020-02-20] MEDS: ALBUTEROL INHALER 18 GM INH SCH ×2 (01:34→08:50)
[2020-02-20] MEDS: ACETAMINOPHEN 325 MG TABLET PO PRN (08:49)
[2020-02-20] MEDS: AZITHROMYCIN 250 MG TABLET PO SCH (08:49)
[2020-02-20] MEDS: methylPREDNISolone SOD SUC 40 MG/1 ML VIAL IV SCH (08:50)
[2020-02-20 12:03] VITALS: BP 109/71
== END 2020-02-20 14:01 | disposition home or self-care (01) ==
LOC: EDBD → EDUNIT# → N.ED 17:01 → N.EDINP 17:01 → N.2E 22:32
PROVIDERS: ADMIT Internal Medicine; ATTEND Internal Medicine

== ENCOUNTER 2020-03-12 15:27 | Inpatient (IN) ==
[2020-03-12] MEDS ORDERED: methylPREDNISolone SOD SUC 125 MG/2 ML VIAL ONE (15:36)
[2020-03-12] MEDS ORDERED: methylPREDNISolone SOD SUC 125 MG/2 ML VIAL IV STA (15:39)
[2020-03-12] MEDS ORDERED: HYDROmorphone 2 MG/1 ML VIAL ONE (15:57)
[2020-03-12] MEDS ORDERED: LIDOCAINE 1% 20 ML VIAL ONE (15:57)
[2020-03-12] MEDS ORDERED: MIDAZOLAM 2 MG/2 ML VIAL ONE (15:58)
[2020-03-12] MEDS ORDERED: ALBUTEROL NEB SOLN 5 MG/ML 20 ML/BOTTLE CONT NEB SCH (16:00)
[2020-03-12] MEDS ORDERED: MAGNESIUM SULF RIDER 50 ML IV ONE (16:02)
[2020-03-12 16:14] LABS: Alanine Aminotransferase 47 U/L (13-56); Albumin 3.4 G/DL (3.4-5.0); Alkaline Phosphatase 77 U/L (45-117); Aspartate Amino Transferase 71 U/L (0-37); Bilirubin,Total < 0.39 MG/DL (0.2-1.0); Blood Urea Nitrogen 11 MG/DL (7-18); Calcium 8.4 MG/DL (8.5-10.1); Glucose 126 MG/DL (74-106); Osmolality,Calculated 275.7 MOS/KG (273-304); Total Protein 6.8 G/DL (6.4-8.3)
[2020-03-12 16:15] LABS: Estimated Glom Filtration Rate 0 ML/MIN
[2020-03-12 16:29] LABS: Basophils % 0.5 % (0.0-0.8); Eosinophils # 0.6 10*3/uL (0.0-0.87); Eosinophils % 10.1 % (0.00-10.9); Hematocrit 42.1 VOL% (35.7-47.0); Hemoglobin 12.2 GM/DL (12.0-16.0); Immature Granulocytes % 1.6 %; Lymphocytes # 4.2 10*3/uL (1.4-4.0); Lymphocytes % 66.1 % (21.3-54.2); Mean Platelet Volume 12.6 FL (9.6-12.0); Monocytes % 5.4 % (1.7-12.7); NRBC # 0.06 10*3/uL; Neutrophils % 16.3 % (38.7-73.9); Platelet Count 149 T/CUMM (130-400); Red Blood Count 4.48 MC/CUMM (3.8-5.5); Red Cell Distribution Width 14.1 % (9.3-17.3); White Blood Count 6.4 T/CUMM (4-12)
[2020-03-12] MEDS ORDERED: NITROGLYCERIN SL 0.4 MG TABLET SL PRN (16:38)
[2020-03-12] MEDS ORDERED: ONDANSETRON 4 MG/2 ML VIAL IV PRN (16:38)
[2020-03-12] MEDS ORDERED: LORazepam 2 MG/1 ML VIAL IV ONE ×2 (17:31)
[2020-03-12] MEDS ORDERED: fentaNYL 100 MCG/2 ML VIAL IV ONE (17:31)
[2020-03-12] MEDS ORDERED: fentaNYL 100 MCG/2 ML VIAL IV PRN (17:31)
[2020-03-12] MEDS ORDERED: LORazepam 2 MG/1 ML VIAL IV PRN (17:31)
[2020-03-12] MEDS ORDERED: MEPERIDINE 50 MG/1 ML VIAL IV PRN (17:41)
[2020-03-12] MEDS ORDERED: NOREPINEPHRINE 8 MG in SODIUM CHLORIDE 0.9% 242 ML IV PRN (17:41)
[2020-03-12 17:43] LABS: ABG Base Excess -18.4 MMOL/L (-2.5-2.5); ABG HCO3 11.2 MMOL/L (20-26); ABG Oxygen Saturation 98.2 % (95-100); ABG TCO2 24.6 MMOL/L (23-27)
[2020-03-12 17:50] LABS: ABG PH 6.808 (7.35-7.45)
[2020-03-12] MEDS ORDERED: LORazepam INJ 40 MG in DEXTROSE 5% 30 ML IV SCH (18:00)
[2020-03-12] MEDS: fentaNYL INJ 1,250 MCG in SODIUM CHLORIDE 0.9% 225 ML IV PRN (18:40)
[2020-03-12] MEDS: PIPERACILLIN/TAZOBACTAM 3,375 MG in SODIUM CHLORIDE 0.9% 100 ML IV SCH (18:57)
[2020-03-12] MEDS: LORazepam INJ 40 MG in DEXTROSE 5% 30 ML IV PRN (19:00)
[2020-03-12] MEDS ORDERED: LACTATED RINGERS 1,000 ML IV SCH (19:00)
[2020-03-12] MEDS ORDERED: MAGNESIUM SULF RIDER 4 GM in PREMIX 1 EACH IV PRN (19:04)
[2020-03-12 19:14] LABS: ABG Base Excess -13.3 MMOL/L (-2.5-2.5); ABG HCO3 14.4 MMOL/L (20-26); ABG Oxygen Saturation 98.8 % (95-100)
[2020-03-12 19:20] LABS: ABG PH 7.032 (7.35-7.45)
[2020-03-12 19:24] LABS: INR 1.1; PT Patient Result 11.7 SECS (9.8-11.9); Partial Thromboplastin Time 34.2 SECS (23.9-33.8)
[2020-03-12] MEDS: CISATRACURIUM 200 MG in SODIUM CHLORIDE 0.9% 180 ML IV PRN (19:27)
[2020-03-12 19:50] LABS: Bilirubin,Urine Negative (Negative); Blood, Urine Large mg/dL (Negative); Glucose,Urine (UA) 50 mg/dL (Negative); Ketones,Urine Negative (Negative); Mucus,Urine Few /LPF (Occasional); Nitrite,Urine Negative (Negative); Protein,Urine >=500 MG/DL; RBC,Urine 79 /HPF (0-4); Urine Appearance CLOUDY (Clear); Urine Color Yellow (Yellow); Urine Specific Gravity > 1.060 (1.001-1.035); Urine Urobilinogen < 2.0 EU/DL (0.2-1.0)
[2020-03-12 19:59] LABS: Basophils # 0.1 10*3/uL (0.0-0.2); Basophils % 0.4 % (0.0-0.8); Eosinophils % 6.3 % (0.00-10.9); Hematocrit 44.2 VOL% (35.7-47.0); Hemoglobin 13.4 GM/DL (12.0-16.0); Immature Granulocytes % 1.2 %; Immature Granulocytes Absolute 0.19 #; Lymphocytes # 3.3 10*3/uL (1.4-4.0); Lymphocytes % 20.5 % (21.3-54.2); Mean Corpuscular HGB Conc 30.3 GM/DL (32-36); Mean Corpuscular Volume 89.8 FL (87-102); Monocytes % 2.1 % (1.7-12.7); Neutrophils % 69.5 % (38.7-73.9); Platelet Count 150 T/CUMM (130-400); Red Blood Count 4.92 MC/CUMM (3.8-5.5); Red Cell Distribution Width 14.1 % (9.3-17.3); White Blood Count 16.3 T/CUMM (4-12)
[2020-03-12] MEDS: ALBUTEROL/IPRATROPIUM 3 ML NEB RESP TX SCH (20:06)
[2020-03-12 20:12] LABS: Eosinophils 9 % (0-10); Lymphocytes 61 % (20-55); Macrocytosis 1+; Myelocytes 1 %; Promyelocytes 1 %; Segmented Neutrophils 21 % (50-85); Total Cells Counted 100
[2020-03-12 20:13] LABS: Burr Cells 1+; Hypochromasia 1+; Poikilocytosis 2+; Reactive Lymphocytes 2+
[2020-03-12 20:14] LABS: Anisocytosis 1+; Platelet Estimate Normal
[2020-03-12 20:27] LABS: Alanine Aminotransferase 91 U/L (13-56); Albumin 3.1 G/DL (3.4-5.0); Alkaline Phosphatase 111 U/L (45-117); Amylase 122 U/L (25-115); Aspartate Amino Transferase 159 U/L (0-37); Beta HCG Titer < 1.00 mIU/ml (1-3); Blood Urea Nitrogen 13 MG/DL (7-18); Calcium 8.1 MG/DL (8.5-10.1); Estimated Glom Filtration Rate 44 ML/MIN; Glucose 184 MG/DL (74-106); Osmolality,Calculated 262.9 MOS/KG (273-304); Troponin I < 0.015 NG/ML (0.00-0.045)
[2020-03-12 21:03] LABS: Barbiturates Screen,Urine Negative (Negative); Benzodiazepines Screen,Urine Negative (Negative); Cannabinoid Screen,Urine Negative (Negative); Opiate Screen,Urine Negative (Negative); Phencyclidine Screen,Urine Negative (Negative)
[2020-03-12 21:20] LABS: Albumin 2.9 G/DL (3.4-5.0); Bilirubin,Total 0.6 MG/DL (0.2-1.0); Calcium 7.4 MG/DL (8.5-10.1); Osmolality,Calculated 274.4 MOS/KG (273-304); Total Protein 6.8 G/DL (6.4-8.3)
[2020-03-12] MEDS ORDERED: DEXTROSE 50% 25 GM/50 ML VIAL IV ONE (21:43)
[2020-03-12] MEDS ORDERED: SODIUM BICARBONATE 50 MEQ/50 ML VIAL IV ONE (21:45)
[2020-03-12] MEDS ORDERED: SODIUM POLYSTYRENE SULFATE 15 GM/60 ML BOTTLE PO ONE (22:00)
[2020-03-12] MEDS: methylPREDNISolone SOD SUC 40 MG/1 ML VIAL IV SCH (22:11)
[2020-03-12] MEDS: BRIMONIDINE/TIMOLOL OPH SOLN 5 ML BOTTLE BOTH EYES SCH (22:11)
[2020-03-12] MEDS: BRIMONIDINE 0.15% OPH SOLN 1 DROP/DROPS BOTTLE BOTH EYES SCH (22:11)
[2020-03-12] MEDS ORDERED: FUROSEMIDE 40 MG/4 ML VIAL IV ONE (22:13)
[2020-03-12] MEDS ORDERED: INSULIN REGULAR 100 UNIT/ML IV ONE (22:30)
[2020-03-12] MEDS ORDERED: CALCIUM GLUCONATE 2,000 MG in SODIUM CHLORIDE 0.9% 100 ML IV ONE (22:30)
[2020-03-12] MEDS: SODIUM BICARB INJ 150 MEQ in STERILE WATER INJ 850 ML IV SCH (22:38)
[2020-03-13 00:28] LABS: Basophils % 0.1 % (0.0-0.8); Eosinophils # 0.2 10*3/uL (0.0-0.87); Eosinophils % 1.3 % (0.00-10.9); Hematocrit 41.9 VOL% (35.7-47.0); Hemoglobin 12.9 GM/DL (12.0-16.0); Immature Granulocytes Absolute 0.14 #; Lymphocytes % 6.6 % (21.3-54.2); Mean Corpuscular HGB Conc 30.8 GM/DL (32-36); Mean Corpuscular Volume 88.2 FL (87-102); Mean Platelet Volume 11.5 FL (9.6-12.0); Monocytes % 5.4 % (1.7-12.7); Neutrophils % 85.6 % (38.7-73.9); Platelet Count 145 T/CUMM (130-400); Red Blood Count 4.75 MC/CUMM (3.8-5.5); Red Cell Distribution Width 14.2 % (9.3-17.3); White Blood Count 14.6 T/CUMM (4-12)
[2020-03-13] MEDS: ALBUTEROL/IPRATROPIUM 3 ML NEB RESP TX SCH ×7 (00:28→23:50)
[2020-03-13 00:35] LABS: INR 1.1; PT Patient Result 11.8 SECS (9.8-11.9); Partial Thromboplastin Time 27.6 SECS (23.9-33.8)
[2020-03-13 01:32] LABS: Blood Urea Nitrogen 19 MG/DL (7-18); Calcium 8.7 MG/DL (8.5-10.1); Estimated Glom Filtration Rate 48 ML/MIN; Glucose 112 MG/DL (74-106); Osmolality,Calculated 281.4 MOS/KG (273-304); Troponin I 0.036 NG/ML (0.00-0.045)
[2020-03-13] MEDS: PIPERACILLIN/TAZOBACTAM 3,375 MG in SODIUM CHLORIDE 0.9% 100 ML IV SCH ×3 (01:38→19:03)
[2020-03-13 04:40] LABS: ABG Base Excess 1.1 MMOL/L (-2.5-2.5); ABG HCO3 26.2 MMOL/L (20-26); ABG Oxygen Saturation 99.2 % (95-100); ABG PCO2 43.7 MM HG (35-48); ABG PH 7.396 (7.35-7.45); ABG TCO2 27.6 MMOL/L (23-27)
[2020-03-13 04:50] LABS: Basophils % 0.1 % (0.0-0.8); Eosinophils % 0.2 % (0.00-10.9); Hematocrit 42.2 VOL% (35.7-47.0); Hemoglobin 13.4 GM/DL (12.0-16.0); Immature Granulocytes % 0.7 %; Immature Granulocytes Absolute 0.11 #; Lymphocytes % 6.9 % (21.3-54.2); Mean Corpuscular HGB Conc 31.8 GM/DL (32-36); Mean Corpuscular Volume 86.5 FL (87-102); Mean Platelet Volume 11.7 FL (9.6-12.0); Monocytes % 5.2 % (1.7-12.7); Neutrophils % 86.9 % (38.7-73.9); Platelet Count 148 T/CUMM (130-400); Red Blood Count 4.88 MC/CUMM (3.8-5.5); Red Cell Distribution Width 14.2 % (9.3-17.3)
[2020-03-13] MEDS: methylPREDNISolone SOD SUC 40 MG/1 ML VIAL IV SCH ×4 (04:55→21:02)
[2020-03-13 05:02] LABS: Albumin 3.2 G/DL (3.4-5.0); Bilirubin,Total 0.6 MG/DL (0.2-1.0); Calcium 8.1 MG/DL (8.5-10.1); Osmolality,Calculated 281.5 MOS/KG (273-304)
[2020-03-13 05:03] LABS: Troponin I 0.049 NG/ML (0.00-0.045)
[2020-03-13 05:07] LABS: INR 1.1; PT Patient Result 11.9 SECS (9.8-11.9); Partial Thromboplastin Time 27.5 SECS (23.9-33.8)
[2020-03-13 05:12] LABS: Hypochromasia 1+; Platelet Estimate Adequate
[2020-03-13] MEDS: fentaNYL INJ 1,250 MCG in SODIUM CHLORIDE 0.9% 225 ML IV PRN ×2 (06:42→16:24)
[2020-03-13 06:51] LABS: CKMB % 1.6 %; Calcium 8.1 MG/DL (8.5-10.1); Osmolality,Calculated 281.5 MOS/KG (273-304)
[2020-03-13 06:53] LABS: Troponin I 0.059 NG/ML (0.00-0.045)
[2020-03-13 07:25] LABS: Bilirubin,Urine Negative (Negative); Blood, Urine Moderate mg/dL (Negative); Glucose,Urine (UA) Negative (Negative); Hyaline Casts,Urine 2 /LPF (0-3); Ketones,Urine Negative (Negative); Mucus,Urine Occasional /LPF (Occasional); Nitrite,Urine Negative (Negative); Protein,Urine Negative; RBC,Urine 16 /HPF (0-4); Urine Appearance CLOUDY (Clear); Urine Color Yellow (Yellow); Urine Specific Gravity 1.019 (1.001-1.035); Urine Urobilinogen < 2.0 EU/DL (0.2-1.0); WBC,Urine 2 /HPF (0-6)
[2020-03-13] MEDS: SODIUM BICARB INJ 150 MEQ in STERILE WATER INJ 850 ML IV SCH ×2 (08:42→19:04)
[2020-03-13] MEDS: BRIMONIDINE 0.15% OPH SOLN 1 DROP/DROPS BOTTLE BOTH EYES SCH ×3 (08:43→20:57)
[2020-03-13] MEDS: BRIMONIDINE/TIMOLOL OPH SOLN 5 ML BOTTLE BOTH EYES SCH ×2 (08:43→20:57)
[2020-03-13] MEDS: PANTOPRAZOLE 40 MG VIAL IV SCH (09:23)
[2020-03-13 12:11] LABS: Basophils % 0.1 % (0.0-0.8); Eosinophils % 0.1 % (0.00-10.9); Hematocrit 37.8 VOL% (35.7-47.0); Hemoglobin 12.2 GM/DL (12.0-16.0); Immature Granulocytes % 0.6 %; Immature Granulocytes Absolute 0.06 #; Lymphocytes # 0.8 10*3/uL (1.4-4.0); Lymphocytes % 8.3 % (21.3-54.2); Mean Corpuscular HGB Conc 32.3 GM/DL (32-36); Mean Corpuscular Volume 84.4 FL (87-102); Mean Platelet Volume 11.4 FL (9.6-12.0); Monocytes % 4.3 % (1.7-12.7); Neutrophils % 86.6 % (38.7-73.9); Platelet Count 122 T/CUMM (130-400); Red Blood Count 4.48 MC/CUMM (3.8-5.5); White Blood Count 9.7 T/CUMM (4-12)
[2020-03-13 12:28] LABS: CKMB % 1.8 %; Calcium 7.6 MG/DL (8.5-10.1); Osmolality,Calculated 282.4 MOS/KG (273-304)
[2020-03-13 12:29] LABS: INR 1.2; PT Patient Result 12.3 SECS (9.8-11.9); Partial Thromboplastin Time 27.6 SECS (23.9-33.8)
[2020-03-13 12:31] LABS: Troponin I 0.055 NG/ML (0.00-0.045)
[2020-03-13 12:35] LABS: Platelet Estimate Adequate
[2020-03-13 12:37] LABS: Anisocytosis 2+; Burr Cells Few; Macrocytosis Slight
[2020-03-13] MEDS: POTASSIUM CHLORIDE RIDER 20 MEQ in PREMIX 1 EACH IV PRN ×3 (12:40→21:36)
[2020-03-13 18:03] LABS: Basophils % 0.1 % (0.0-0.8); Hematocrit 35.3 VOL% (35.7-47.0); Hemoglobin 11.6 GM/DL (12.0-16.0); Immature Granulocytes % 0.4 %; Immature Granulocytes Absolute 0.03 #; Lymphocytes # 0.8 10*3/uL (1.4-4.0); Lymphocytes % 9.9 % (21.3-54.2); Mean Corpuscular HGB Conc 32.9 GM/DL (32-36); Mean Corpuscular Volume 83.6 FL (87-102); Mean Platelet Volume 11.3 FL (9.6-12.0); Monocytes % 5.3 % (1.7-12.7); Neutrophils % 84.3 % (38.7-73.9); Platelet Count 111 T/CUMM (130-400); Red Blood Count 4.22 MC/CUMM (3.8-5.5); Red Cell Distribution Width 14.1 % (9.3-17.3); White Blood Count 8.5 T/CUMM (4-12)
[2020-03-13 18:19] LABS: INR 1.2; PT Patient Result 12.4 SECS (9.8-11.9); Partial Thromboplastin Time 27.6 SECS (23.9-33.8)
[2020-03-13 18:24] LABS: CKMB % 1.8 %; Calcium 7.1 MG/DL (8.5-10.1); Osmolality,Calculated 288.1 MOS/KG (273-304)
[2020-03-13 18:26] LABS: Troponin I 0.059 NG/ML (0.00-0.045)
[2020-03-13] MEDS: LORazepam INJ 40 MG in DEXTROSE 5% 30 ML IV PRN (20:21)
[2020-03-13] MEDS: CISATRACURIUM 200 MG in SODIUM CHLORIDE 0.9% 180 ML IV PRN (21:43)
[2020-03-14 01:00] LABS: Calcium 6.9 MG/DL (8.5-10.1); Osmolality,Calculated 285.3 MOS/KG (273-304)
[2020-03-14 01:05] LABS: INR 1.2; PT Patient Result 12.4 SECS (9.8-11.9); Partial Thromboplastin Time 27.4 SECS (23.9-33.8)
[2020-03-14 01:44] LABS: Basophils % 0.1 % (0.0-0.8); Hematocrit 33.7 VOL% (35.7-47.0); Hemoglobin 10.9 GM/DL (12.0-16.0); Immature Granulocytes % 0.9 %; Immature Granulocytes Absolute 0.08 #; Lymphocytes # 0.8 10*3/uL (1.4-4.0); Lymphocytes % 8.3 % (21.3-54.2); Mean Corpuscular HGB Conc 32.3 GM/DL (32-36); Mean Corpuscular Volume 84.9 FL (87-102); Mean Platelet Volume 12.4 FL (9.6-12.0); Monocytes % 4.6 % (1.7-12.7); Neutrophils % 86.1 % (38.7-73.9); Platelet Count 119 T/CUMM (130-400); Red Blood Count 3.97 MC/CUMM (3.8-5.5); Red Cell Distribution Width 14.2 % (9.3-17.3); White Blood Count 9.3 T/CUMM (4-12)
[2020-03-14] MEDS: PIPERACILLIN/TAZOBACTAM 3,375 MG in SODIUM CHLORIDE 0.9% 100 ML IV SCH ×3 (02:30→18:29)
[2020-03-14] MEDS: fentaNYL INJ 1,250 MCG in SODIUM CHLORIDE 0.9% 225 ML IV PRN ×2 (02:37→13:24)
[2020-03-14] MEDS: ALBUTEROL/IPRATROPIUM 3 ML NEB RESP TX SCH ×6 (03:10→23:25)
[2020-03-14 03:20] LABS: ABG Base Excess 8.3 MMOL/L (-2.5-2.5); ABG HCO3 32.1 MMOL/L (20-26); ABG Oxygen Saturation 99.7 % (95-100); ABG PCO2 40.6 MM HG (35-48); ABG PH 7.506 (7.35-7.45); ABG TCO2 28.7 MMOL/L (23-27)
[2020-03-14] MEDS: methylPREDNISolone SOD SUC 40 MG/1 ML VIAL IV SCH ×3 (03:46→21:00)
[2020-03-14] MEDS: SODIUM BICARB INJ 150 MEQ in STERILE WATER INJ 850 ML IV SCH (05:05)
[2020-03-14 06:25] LABS: Hematocrit 32.3 VOL% (35.7-47.0); Hemoglobin 10.5 GM/DL (12.0-16.0); Immature Granulocytes % 0.7 %; Immature Granulocytes Absolute 0.07 #; Lymphocytes # 0.5 10*3/uL (1.4-4.0); Lymphocytes % 5.6 % (21.3-54.2); Mean Corpuscular HGB Conc 32.5 GM/DL (32-36); Mean Corpuscular Volume 84.8 FL (87-102); Monocytes % 4.3 % (1.7-12.7); Neutrophils % 89.4 % (38.7-73.9); Platelet Count 108 T/CUMM (130-400); Red Blood Count 3.81 MC/CUMM (3.8-5.5); Red Cell Distribution Width 14.3 % (9.3-17.3); White Blood Count 9.7 T/CUMM (4-12)
[2020-03-14 06:31] LABS: INR 1.2; PT Patient Result 12.9 SECS (9.8-11.9); Partial Thromboplastin Time 27.1 SECS (23.9-33.8)
[2020-03-14 06:45] LABS: Alanine Aminotransferase 74 U/L (13-56); Albumin 2.4 G/DL (3.4-5.0); Alkaline Phosphatase 49 U/L (45-117); Aspartate Amino Transferase 97 U/L (0-37); Blood Urea Nitrogen 25 MG/DL (7-18); Calcium 6.8 MG/DL (8.5-10.1); Estimated Glom Filtration Rate 66 ML/MIN; Glucose 113 MG/DL (74-106); Total Protein 5.4 G/DL (6.4-8.3); Troponin I 0.038 NG/ML (0.00-0.045)
[2020-03-14 06:57] LABS: Hypochromasia 1+
[2020-03-14 06:58] LABS: Anisocytosis 1+; Microcytosis 1+; Platelet Estimate Decreased
[2020-03-14] MEDS ORDERED: DEXTROSE 50% 25 GM/50 ML VIAL IV PRN (08:15)
[2020-03-14] MEDS ORDERED: GLUCAGON 1 MG VIAL IM PRN (08:15)
[2020-03-14] MEDS: POTASSIUM CHLORIDE 20 MEQ/15 ML UDCUP PER TUBE SCH ×4 (08:55→21:01)
[2020-03-14] MEDS: PANTOPRAZOLE 40 MG VIAL IV SCH (08:55)
[2020-03-14] MEDS: BRIMONIDINE/TIMOLOL OPH SOLN 5 ML BOTTLE BOTH EYES SCH ×2 (08:56→21:02)
[2020-03-14] MEDS: BRIMONIDINE 0.15% OPH SOLN 1 DROP/DROPS BOTTLE BOTH EYES SCH ×3 (08:56→21:02)
[2020-03-14] MEDS: LACTATED RINGERS 1,000 ML IV SCH ×2 (10:31→19:00)
[2020-03-14 12:07] LABS: Hematocrit 30.9 VOL% (35.7-47.0); Hemoglobin 9.9 GM/DL (12.0-16.0); Immature Granulocytes % 0.6 %; Immature Granulocytes Absolute 0.05 #; Lymphocytes # 0.5 10*3/uL (1.4-4.0); Lymphocytes % 5.7 % (21.3-54.2); Mean Corpuscular Volume 84.7 FL (87-102); Mean Platelet Volume 11.8 FL (9.6-12.0); Monocytes % 5.9 % (1.7-12.7); Neutrophils % 87.8 % (38.7-73.9); Platelet Count 107 T/CUMM (130-400); Red Blood Count 3.65 MC/CUMM (3.8-5.5); Red Cell Distribution Width 14.3 % (9.3-17.3)
[2020-03-14 12:20] LABS: INR 1.2; PT Patient Result 12.7 SECS (9.8-11.9); Partial Thromboplastin Time 27.1 SECS (23.9-33.8)
[2020-03-14 12:23] LABS: Calcium 6.4 MG/DL (8.5-10.1); Osmolality,Calculated 290.1 MOS/KG (273-304)
[2020-03-14] MEDS: POTASSIUM CHLORIDE RIDER 20 MEQ in PREMIX 1 EACH IV PRN ×2 (12:48→14:55)
[2020-03-14] MEDS: INSULIN REGULAR 100 UNIT/ML SUBCUT SCH ×2 (16:39→21:01)
[2020-03-14 18:11] LABS: Basophils % 0.1 % (0.0-0.8); Hematocrit 29.7 VOL% (35.7-47.0); Hemoglobin 9.4 GM/DL (12.0-16.0); Immature Granulocytes % 0.6 %; Immature Granulocytes Absolute 0.05 #; Lymphocytes # 0.3 10*3/uL (1.4-4.0); Lymphocytes % 3.4 % (21.3-54.2); Mean Corpuscular HGB Conc 31.6 GM/DL (32-36); Mean Corpuscular Volume 86.3 FL (87-102); Mean Platelet Volume 11.9 FL (9.6-12.0); Monocytes % 4.6 % (1.7-12.7); Neutrophils % 91.3 % (38.7-73.9); Platelet Count 92 T/CUMM (130-400); Red Blood Count 3.44 MC/CUMM (3.8-5.5); Red Cell Distribution Width 14.5 % (9.3-17.3); White Blood Count 8.8 T/CUMM (4-12)
[2020-03-14 18:22] LABS: INR 1.2; PT Patient Result 12.4 SECS (9.8-11.9); Partial Thromboplastin Time 27.3 SECS (23.9-33.8)
[2020-03-14 18:52] LABS: Calcium 6.3 MG/DL (8.5-10.1); Lymphocytes 1 % (20-55); Osmolality,Calculated 287.4 MOS/KG (273-304); Platelet Estimate Decreased; Segmented Neutrophils 98 % (50-85); Total Cells Counted 100
[2020-03-14 18:53] LABS: Hypochromasia Slight
[2020-03-14] MEDS: METOPROLOL TARTRATE 25 MG TABLET PO SCH (21:00)
[2020-03-15] MEDS: PIPERACILLIN/TAZOBACTAM 3,375 MG in SODIUM CHLORIDE 0.9% 100 ML IV SCH ×3 (02:44→18:30)
[2020-03-15] MEDS: LACTATED RINGERS 1,000 ML IV SCH ×3 (02:47→19:28)
[2020-03-15] MEDS: ALBUTEROL/IPRATROPIUM 3 ML NEB RESP TX SCH ×5 (03:30→20:05)
[2020-03-15 03:32] LABS: ABG HCO3 29.9 MMOL/L (20-26); ABG Oxygen Saturation 98.8 % (95-100); ABG PCO2 40.8 MM HG (35-48); ABG PH 7.483 (7.35-7.45); ABG PO2 245.3 MM HG (80-95); ABG TCO2 31.2 MMOL/L (23-27)
[2020-03-15 03:50] LABS: Hematocrit 28.4 VOL% (35.7-47.0); Hemoglobin 8.8 GM/DL (12.0-16.0); Immature Granulocytes Absolute 0.08 #; Lymphocytes # 0.4 10*3/uL (1.4-4.0); Lymphocytes % 5.2 % (21.3-54.2); Mean Corpuscular Volume 88.8 FL (87-102); Mean Platelet Volume 12.9 FL (9.6-12.0); Monocytes % 6.2 % (1.7-12.7); Neutrophils % 87.6 % (38.7-73.9); Red Cell Distribution Width 14.5 % (9.3-17.3); White Blood Count 7.9 T/CUMM (4-12)
[2020-03-15 04:01] LABS: Platelet Count 75 T/CUMM (130-400)
[2020-03-15] MEDS: methylPREDNISolone SOD SUC 40 MG/1 ML VIAL IV SCH ×2 (04:04→18:30)
[2020-03-15] MEDS: INSULIN REGULAR 100 UNIT/ML SUBCUT SCH ×6 (04:04→20:56)
[2020-03-15 04:05] LABS: Calcium 6.5 MG/DL (8.5-10.1); Osmolality,Calculated 285.4 MOS/KG (273-304)
[2020-03-15] MEDS ORDERED: methylPREDNISolone SOD SUC 40 MG/1 ML VIAL IV SCH (08:30)
[2020-03-15] MEDS: PANTOPRAZOLE 40 MG VIAL IV SCH (11:40)
[2020-03-15] MEDS: METOPROLOL TARTRATE 25 MG TABLET PO SCH ×2 (11:50→21:44)
[2020-03-15] MEDS: BRIMONIDINE/TIMOLOL OPH SOLN 5 ML BOTTLE BOTH EYES SCH ×2 (12:00→21:45)
[2020-03-15] MEDS: BRIMONIDINE 0.15% OPH SOLN 1 DROP/DROPS BOTTLE BOTH EYES SCH ×3 (12:00→21:45)
[2020-03-15] MEDS ORDERED: METOPROLOL TARTRATE 5 MG/5 ML VIAL IV ONE (12:16)
[2020-03-15] MEDS: CHLORTHALIDONE 25 MG TABLET PO SCH (19:00)
[2020-03-15] MEDS: amLODIPine 10 MG TABLET PO SCH (19:00)
[2020-03-15] MEDS ORDERED: MORPHINE 4 MG/1 ML VIAL IV ONE (21:04)
[2020-03-16] MEDS: INSULIN REGULAR 100 UNIT/ML SUBCUT SCH ×6 (00:12→20:55)
[2020-03-16] MEDS: ALBUTEROL/IPRATROPIUM 3 ML NEB RESP TX SCH ×7 (00:20→23:16)
[2020-03-16] MEDS: PIPERACILLIN/TAZOBACTAM 3,375 MG in SODIUM CHLORIDE 0.9% 100 ML IV SCH ×3 (02:17→18:44)
[2020-03-16] MEDS: MORPHINE 4 MG/1 ML VIAL IV PRN ×3 (02:33→18:44)
[2020-03-16] MEDS: methylPREDNISolone SOD SUC 40 MG/1 ML VIAL IV SCH ×2 (02:58→15:03)
[2020-03-16 04:28] LABS: ABG Base Excess 4.2 MMOL/L (-2.5-2.5); ABG HCO3 28.2 MMOL/L (20-26); ABG Oxygen Saturation 99.3 % (95-100); ABG PCO2 35.7 MM HG (35-48); ABG PH 7.494 (7.35-7.45); ABG TCO2 25.1 MMOL/L (23-27)
[2020-03-16 04:32] LABS: Hematocrit 29.4 VOL% (35.7-47.0); Hemoglobin 9.2 GM/DL (12.0-16.0); Immature Granulocytes % 0.6 %; Immature Granulocytes Absolute 0.04 #; Lymphocytes # 0.6 10*3/uL (1.4-4.0); Lymphocytes % 8.4 % (21.3-54.2); Mean Corpuscular HGB Conc 31.3 GM/DL (32-36); Mean Platelet Volume 12.9 FL (9.6-12.0); Monocytes % 9.3 % (1.7-12.7); Neutrophils % 81.7 % (38.7-73.9); Red Blood Count 3.34 MC/CUMM (3.8-5.5); White Blood Count 6.7 T/CUMM (4-12)
[2020-03-16 04:33] LABS: Platelet Count 80 T/CUMM (130-400)
[2020-03-16 04:52] LABS: Calcium 7.6 MG/DL (8.5-10.1); Osmolality,Calculated 270.1 MOS/KG (273-304)
[2020-03-16 05:57] LABS: Anisocytosis 1+; Basophilic Stippling Slight; Platelet Estimate Decreased
[2020-03-16] MEDS: POTASSIUM CHLORIDE 20 MEQ/15 ML UDCUP PER TUBE SCH ×3 (08:44→16:45)
[2020-03-16] MEDS: PANTOPRAZOLE 40 MG VIAL IV SCH (08:45)
[2020-03-16] MEDS: METOPROLOL TARTRATE 25 MG TABLET PO SCH ×2 (08:46→20:56)
[2020-03-16] MEDS: BRIMONIDINE 0.15% OPH SOLN 1 DROP/DROPS BOTTLE BOTH EYES SCH ×3 (08:46→20:54)
[2020-03-16] MEDS: amLODIPine 10 MG TABLET PO SCH (08:46)
[2020-03-16] MEDS: BRIMONIDINE/TIMOLOL OPH SOLN 5 ML BOTTLE BOTH EYES SCH ×2 (08:46→20:54)
[2020-03-16] MEDS: CHLORTHALIDONE 25 MG TABLET PO SCH (08:55)
[2020-03-16] MEDS: LACTATED RINGERS 1,000 ML IV SCH ×2 (15:12→18:45)
[2020-03-16] MEDS ORDERED: amLODIPine 10 MG TABLET PO SCH (15:41)
[2020-03-16] MEDS ORDERED: CHLORTHALIDONE 25 MG TABLET PO SCH (15:41)
[2020-03-17] MEDS: INSULIN REGULAR 100 UNIT/ML SUBCUT SCH ×6 (00:23→20:17)
[2020-03-17] MEDS: PIPERACILLIN/TAZOBACTAM 3,375 MG in SODIUM CHLORIDE 0.9% 100 ML IV SCH ×3 (01:35→17:54)
[2020-03-17] MEDS: methylPREDNISolone SOD SUC 40 MG/1 ML VIAL IV SCH ×3 (02:15→20:14)
[2020-03-17] MEDS: MORPHINE 4 MG/1 ML VIAL IV PRN ×4 (02:20→23:47)
[2020-03-17] MEDS: ALBUTEROL/IPRATROPIUM 3 ML NEB RESP TX SCH ×6 (03:13→23:40)
[2020-03-17 04:25] LABS: ABG Base Excess 3.4 MMOL/L (-2.5-2.5); ABG HCO3 27.4 MMOL/L (20-26); ABG Oxygen Saturation 99.6 % (95-100); ABG PCO2 28.9 MM HG (35-48); ABG PH 7.551 (7.35-7.45); ABG TCO2 23.2 MMOL/L (23-27)
[2020-03-17 04:33] LABS: Basophils % 0.1 % (0.0-0.8); Eosinophils % 0.1 % (0.00-10.9); Hematocrit 28.5 VOL% (35.7-47.0); Hemoglobin 9.2 GM/DL (12.0-16.0); Immature Granulocytes % 0.6 %; Immature Granulocytes Absolute 0.04 #; Lymphocytes # 0.6 10*3/uL (1.4-4.0); Lymphocytes % 8.4 % (21.3-54.2); Mean Corpuscular HGB Conc 32.3 GM/DL (32-36); Mean Corpuscular Volume 84.1 FL (87-102); Mean Platelet Volume 13.1 FL (9.6-12.0); Monocytes % 12.1 % (1.7-12.7); Neutrophils % 78.7 % (38.7-73.9); Red Blood Count 3.39 MC/CUMM (3.8-5.5); Red Cell Distribution Width 13.9 % (9.3-17.3); White Blood Count 6.8 T/CUMM (4-12)
[2020-03-17 04:40] LABS: Platelet Count 93 T/CUMM (130-400)
[2020-03-17 04:46] LABS: Calcium 8.3 MG/DL (8.5-10.1); Osmolality,Calculated 263.7 MOS/KG (273-304)
[2020-03-17] MEDS ORDERED: POTASSIUM PHOSPHATE 15 MMOL in SODIUM CHLORIDE 0.9% 100 ML IV ONE (08:00)
[2020-03-17] MEDS: PANTOPRAZOLE 40 MG VIAL IV SCH (08:28)
[2020-03-17] MEDS: METOPROLOL TARTRATE 25 MG TABLET PO SCH ×2 (08:35→20:16)
[2020-03-17] MEDS: amLODIPine 10 MG TABLET PO SCH (08:35)
[2020-03-17] MEDS: BRIMONIDINE/TIMOLOL OPH SOLN 5 ML BOTTLE BOTH EYES SCH ×2 (08:36→20:16)
[2020-03-17] MEDS: BRIMONIDINE 0.15% OPH SOLN 1 DROP/DROPS BOTTLE BOTH EYES SCH ×3 (08:36→20:16)
[2020-03-17] MEDS: SODIUM CHLORIDE 1 GM TABLET PER TUBE SCH ×3 (09:04→20:15)
[2020-03-17] MEDS: ACETAMINOPHEN 325 MG TABLET PO PRN (14:30)
[2020-03-17] MEDS: hydrALAZINE 20 MG/1 ML VIAL IV PRN (14:31)
[2020-03-17] MEDS: LACTATED RINGERS 1,000 ML IV SCH (19:41)
[2020-03-18] MEDS: INSULIN REGULAR 100 UNIT/ML SUBCUT SCH ×8 (00:35→23:30)
[2020-03-18] MEDS: PIPERACILLIN/TAZOBACTAM 3,375 MG in SODIUM CHLORIDE 0.9% 100 ML IV SCH ×3 (02:58→20:22)
[2020-03-18 03:12] LABS: ABG Base Excess 0.4 MMOL/L (-2.5-2.5); ABG HCO3 23.2 MMOL/L (20-26); ABG Oxygen Saturation 98.6 % (95-100); ABG PCO2 30.9 MM HG (35-48); ABG PH 7.493 (7.35-7.45); ABG PO2 132.4 MM HG (80-95); ABG TCO2 24.1 MMOL/L (23-27); Allen Test Positive; Pt O2 Delivery Device Ventilator
[2020-03-18] MEDS: ALBUTEROL/IPRATROPIUM 3 ML NEB RESP TX SCH ×6 (04:05→23:49)
[2020-03-18 04:30] LABS: Basophils % 0.1 % (0.0-0.8); Hematocrit 29.5 VOL% (35.7-47.0); Hemoglobin 9.6 GM/DL (12.0-16.0); Immature Granulocytes % 1.7 %; Immature Granulocytes Absolute 0.13 #; Lymphocytes # 0.8 10*3/uL (1.4-4.0); Lymphocytes % 10.3 % (21.3-54.2); Mean Corpuscular HGB Conc 32.5 GM/DL (32-36); Mean Corpuscular Volume 84.5 FL (87-102); Mean Platelet Volume 12.8 FL (9.6-12.0); Monocytes % 16.5 % (1.7-12.7); Neutrophils % 71.4 % (38.7-73.9); Red Blood Count 3.49 MC/CUMM (3.8-5.5); Red Cell Distribution Width 13.7 % (9.3-17.3); White Blood Count 7.8 T/CUMM (4-12)
[2020-03-18 04:43] LABS: Platelet Count 125 T/CUMM (130-400)
[2020-03-18 04:53] LABS: Osmolality,Calculated 250.9 MOS/KG (273-304)
[2020-03-18 04:57] LABS: Lymphocytes 13 % (20-55); Segmented Neutrophils 73 % (50-85); Total Cells Counted 100
[2020-03-18 04:58] LABS: Hypochromasia 1+; Platelet Estimate Adequate
[2020-03-18] MEDS: MAGNESIUM SULF RIDER 2 GM in PREMIX 1 EACH IV PRN (06:12)
[2020-03-18] MEDS: POTASSIUM CHLORIDE RIDER 20 MEQ in PREMIX 1 EACH IV PRN (06:12)
[2020-03-18] MEDS: PANTOPRAZOLE 40 MG VIAL IV SCH (08:30)
[2020-03-18] MEDS: LACTATED RINGERS 1,000 ML IV SCH ×2 (08:30→18:44)
[2020-03-18] MEDS: methylPREDNISolone SOD SUC 40 MG/1 ML VIAL IV SCH ×2 (08:30→20:24)
[2020-03-18] MEDS: amLODIPine 10 MG TABLET PO SCH (08:30)
[2020-03-18] MEDS: BRIMONIDINE 0.15% OPH SOLN 1 DROP/DROPS BOTTLE BOTH EYES SCH ×3 (08:30→20:26)
[2020-03-18] MEDS: METOPROLOL TARTRATE 25 MG TABLET PO SCH ×2 (08:30→22:29)
[2020-03-18] MEDS: BRIMONIDINE/TIMOLOL OPH SOLN 5 ML BOTTLE BOTH EYES SCH ×2 (08:30→20:26)
[2020-03-18] MEDS: SODIUM CHLORIDE 3% INJ 500 ML IV SCH (09:35)
[2020-03-18] MEDS: SODIUM CHLORIDE 1 GM TABLET PER TUBE SCH ×4 (09:35→21:30)
[2020-03-18] MEDS: hydrALAZINE 20 MG/1 ML VIAL IV PRN (10:00)
[2020-03-18] MEDS: MORPHINE 4 MG/1 ML VIAL IV PRN (10:00)
[2020-03-18] MEDS: LOSARTAN 25 MG TABLET PO SCH (11:30)
[2020-03-18] MEDS: PHENobarbital 65 MG/1 ML VIAL IV SCH ×2 (11:35→15:54)
[2020-03-18] MEDS ORDERED: PHENobarbital 65 MG/1 ML VIAL IV SCH (20:00)
[2020-03-19] MEDS: SODIUM CHLORIDE 3% INJ 500 ML IV SCH (03:39)
[2020-03-19] MEDS: PIPERACILLIN/TAZOBACTAM 3,375 MG in SODIUM CHLORIDE 0.9% 100 ML IV SCH ×3 (03:41→17:30)
[2020-03-19 04:27] LABS: ABG Base Excess 2.8 MMOL/L (-2.5-2.5); ABG Oxygen Saturation 99.3 % (95-100); ABG PCO2 32.1 MM HG (35-48); ABG PH 7.509 (7.35-7.45); ABG TCO2 23.3 MMOL/L (23-27)
[2020-03-19] MEDS: ALBUTEROL/IPRATROPIUM 3 ML NEB RESP TX SCH ×6 (04:31→23:54)
[2020-03-19 04:46] LABS: Calcium 8.4 MG/DL (8.5-10.1); Osmolality,Calculated 269.8 MOS/KG (273-304)
[2020-03-19] MEDS: INSULIN REGULAR 100 UNIT/ML SUBCUT SCH ×5 (05:29→20:51)
[2020-03-19 05:41] LABS: Basophils % 0.1 % (0.0-0.8); Hematocrit 27.8 VOL% (35.7-47.0); Hemoglobin 9.2 GM/DL (12.0-16.0); Immature Granulocytes % 1.4 %; Lymphocytes # 0.5 10*3/uL (1.4-4.0); Lymphocytes % 6.4 % (21.3-54.2); Mean Corpuscular HGB Conc 33.1 GM/DL (32-36); Mean Corpuscular Volume 83.7 FL (87-102); Mean Platelet Volume 13.2 FL (9.6-12.0); Monocytes % 18.3 % (1.7-12.7); Neutrophils % 73.8 % (38.7-73.9); Platelet Count 108 T/CUMM (130-400); Red Blood Count 3.32 MC/CUMM (3.8-5.5); Red Cell Distribution Width 14.3 % (9.3-17.3); White Blood Count 7.2 T/CUMM (4-12)
[2020-03-19 06:10] LABS: Hypochromasia 1+; Lymphocytes 4 % (20-55); Platelet Estimate Decreased; Segmented Neutrophils 75 % (50-85); Total Cells Counted 100
[2020-03-19] MEDS: LOSARTAN 25 MG TABLET PO SCH (08:40)
[2020-03-19] MEDS: SODIUM CHLORIDE 1 GM TABLET PER TUBE SCH ×4 (08:40→20:50)
[2020-03-19] MEDS: amLODIPine 10 MG TABLET PO SCH (08:40)
[2020-03-19] MEDS: BRIMONIDINE/TIMOLOL OPH SOLN 5 ML BOTTLE BOTH EYES SCH ×2 (08:40→20:51)
[2020-03-19] MEDS: PANTOPRAZOLE 40 MG VIAL IV SCH (08:40)
[2020-03-19] MEDS: methylPREDNISolone SOD SUC 40 MG/1 ML VIAL IV SCH ×2 (08:40→20:45)
[2020-03-19] MEDS: BRIMONIDINE 0.15% OPH SOLN 1 DROP/DROPS BOTTLE BOTH EYES SCH ×3 (08:40→20:52)
[2020-03-19] MEDS: METOPROLOL TARTRATE 25 MG TABLET PO SCH ×2 (08:40→20:50)
[2020-03-19] MEDS: MORPHINE 4 MG/1 ML VIAL IV PRN (19:56)
[2020-03-20] MEDS: INSULIN REGULAR 100 UNIT/ML SUBCUT SCH ×6 (00:51→21:06)
[2020-03-20] MEDS: ACETAMINOPHEN 325 MG TABLET PO PRN ×2 (01:27→13:55)
[2020-03-20] MEDS: PIPERACILLIN/TAZOBACTAM 3,375 MG in SODIUM CHLORIDE 0.9% 100 ML IV SCH ×3 (02:16→17:38)
[2020-03-20] MEDS: ALBUTEROL/IPRATROPIUM 3 ML NEB RESP TX SCH ×5 (03:28→20:00)
[2020-03-20 04:44] LABS: Basophils % 0.1 % (0.0-0.8); Hematocrit 28.3 VOL% (35.7-47.0); Immature Granulocytes % 1.2 %; Lymphocytes # 0.6 10*3/uL (1.4-4.0); Lymphocytes % 7.2 % (21.3-54.2); Mean Corpuscular HGB Conc 31.8 GM/DL (32-36); Mean Corpuscular Volume 87.1 FL (87-102); Monocytes % 14.7 % (1.7-12.7); Neutrophils % 76.8 % (38.7-73.9); Platelet Count 148 T/CUMM (130-400); Red Blood Count 3.25 MC/CUMM (3.8-5.5); Red Cell Distribution Width 14.4 % (9.3-17.3); White Blood Count 8.6 T/CUMM (4-12)
[2020-03-20 04:52] LABS: ABG Base Excess 4.4 MMOL/L (-2.5-2.5); ABG HCO3 28.4 MMOL/L (20-26); ABG Oxygen Saturation 98.7 % (95-100); ABG PCO2 42.4 MM HG (35-48); ABG PH 7.442 (7.35-7.45); ABG TCO2 26.7 MMOL/L (23-27)
[2020-03-20 05:09] LABS: Albumin 2.3 G/DL (3.4-5.0); Bilirubin,Total 0.9 MG/DL (0.2-1.0); Calcium 8.7 MG/DL (8.5-10.1); Osmolality,Calculated 274.2 MOS/KG (273-304); Total Protein 6.3 G/DL (6.4-8.3)
[2020-03-20] MEDS: SODIUM CHLORIDE 1 GM TABLET PER TUBE SCH ×4 (08:35→21:07)
[2020-03-20] MEDS: BRIMONIDINE 0.15% OPH SOLN 1 DROP/DROPS BOTTLE BOTH EYES SCH ×3 (08:35→21:12)
[2020-03-20] MEDS: METOPROLOL TARTRATE 25 MG TABLET PO SCH ×2 (08:35→21:07)
[2020-03-20] MEDS: BRIMONIDINE/TIMOLOL OPH SOLN 5 ML BOTTLE BOTH EYES SCH ×2 (08:35→21:12)
[2020-03-20] MEDS: amLODIPine 10 MG TABLET PO SCH (08:35)
[2020-03-20] MEDS: methylPREDNISolone SOD SUC 40 MG/1 ML VIAL IV SCH ×2 (08:35→21:06)
[2020-03-20] MEDS: LOSARTAN 25 MG TABLET PO SCH (08:35)
[2020-03-20] MEDS: PANTOPRAZOLE 40 MG VIAL IV SCH (08:35)
[2020-03-20] MEDS: MORPHINE 4 MG/1 ML VIAL IV PRN (13:55)
[2020-03-21] MEDS: ALBUTEROL/IPRATROPIUM 3 ML NEB RESP TX SCH ×6 (00:02→20:07)
[2020-03-21] MEDS: INSULIN REGULAR 100 UNIT/ML SUBCUT SCH ×6 (00:50→21:17)
[2020-03-21] MEDS: PIPERACILLIN/TAZOBACTAM 3,375 MG in SODIUM CHLORIDE 0.9% 100 ML IV SCH ×3 (03:29→18:09)
[2020-03-21 03:49] LABS: ABG Base Excess 4.7 MMOL/L (-2.5-2.5); ABG HCO3 28.6 MMOL/L (20-26); ABG Oxygen Saturation 97.6 % (95-100); ABG PCO2 39.9 MM HG (35-48); ABG PH 7.474 (7.35-7.45); ABG PO2 102.8 MM HG (80-95); ABG TCO2 29.9 MMOL/L (23-27)
[2020-03-21 04:00] LABS: Basophils % 0.2 % (0.0-0.8); Hemoglobin 9.1 GM/DL (12.0-16.0); Immature Granulocytes % 1.7 %; Immature Granulocytes Absolute 0.23 #; Lymphocytes # 0.8 10*3/uL (1.4-4.0); Lymphocytes % 5.8 % (21.3-54.2); Mean Corpuscular HGB Conc 31.4 GM/DL (32-36); Mean Corpuscular Volume 86.1 FL (87-102); Mean Platelet Volume 12.5 FL (9.6-12.0); Monocytes % 8.7 % (1.7-12.7); Neutrophils % 83.6 % (38.7-73.9); Platelet Count 188 T/CUMM (130-400); Red Blood Count 3.37 MC/CUMM (3.8-5.5); Red Cell Distribution Width 14.2 % (9.3-17.3); White Blood Count 13.2 T/CUMM (4-12)
[2020-03-21 04:40] LABS: Alanine Aminotransferase 52 U/L (13-56); Albumin 2.3 G/DL (3.4-5.0); Alkaline Phosphatase 75 U/L (45-117); Aspartate Amino Transferase 63 U/L (0-37); Bilirubin,Total < 0.39 MG/DL (0.2-1.0); Blood Urea Nitrogen 14 MG/DL (7-18); Calcium 8.9 MG/DL (8.5-10.1); Estimated Glom Filtration Rate 116 ML/MIN; Glucose 239 MG/DL (74-106); Osmolality,Calculated 274.4 MOS/KG (273-304); Total Protein 6.5 G/DL (6.4-8.3)
[2020-03-21] MEDS: amLODIPine 10 MG TABLET PO SCH (08:21)
[2020-03-21] MEDS: METOPROLOL TARTRATE 25 MG TABLET PO SCH ×2 (08:22→21:18)
[2020-03-21] MEDS: LOSARTAN 25 MG TABLET PO SCH (08:22)
[2020-03-21] MEDS: PANTOPRAZOLE 40 MG VIAL IV SCH (08:22)
[2020-03-21] MEDS: SODIUM CHLORIDE 1 GM TABLET PER TUBE SCH ×4 (08:22→21:17)
[2020-03-21] MEDS: methylPREDNISolone SOD SUC 40 MG/1 ML VIAL IV SCH ×2 (08:26→21:16)
[2020-03-21] MEDS: BRIMONIDINE/TIMOLOL OPH SOLN 5 ML BOTTLE BOTH EYES SCH ×2 (08:30→21:16)
[2020-03-21] MEDS: BRIMONIDINE 0.15% OPH SOLN 1 DROP/DROPS BOTTLE BOTH EYES SCH ×3 (08:31→21:16)
[2020-03-22] MEDS: ALBUTEROL/IPRATROPIUM 3 ML NEB RESP TX SCH ×7 (00:06→23:02)
[2020-03-22] MEDS: INSULIN REGULAR 100 UNIT/ML SUBCUT SCH ×7 (00:51→23:34)
[2020-03-22] MEDS: PIPERACILLIN/TAZOBACTAM 3,375 MG in SODIUM CHLORIDE 0.9% 100 ML IV SCH (03:00)
[2020-03-22 04:02] LABS: ABG Base Excess 5.8 MMOL/L (-2.5-2.5); ABG HCO3 29.6 MMOL/L (20-26); ABG Oxygen Saturation 96.4 % (95-100); ABG PCO2 39.8 MM HG (35-48); ABG PH 7.489 (7.35-7.45); ABG TCO2 30.8 MMOL/L (23-27)
[2020-03-22 04:16] LABS: Basophils % 0.1 % (0.0-0.8); Hematocrit 28.8 VOL% (35.7-47.0); Immature Granulocytes % 1.9 %; Immature Granulocytes Absolute 0.32 #; Lymphocytes # 0.9 10*3/uL (1.4-4.0); Lymphocytes % 5.2 % (21.3-54.2); Mean Corpuscular HGB Conc 31.3 GM/DL (32-36); Mean Corpuscular Volume 88.3 FL (87-102); Mean Platelet Volume 12.5 FL (9.6-12.0); Monocytes % 7.2 % (1.7-12.7); Neutrophils % 85.6 % (38.7-73.9); Platelet Count 213 T/CUMM (130-400); Red Blood Count 3.26 MC/CUMM (3.8-5.5); White Blood Count 16.7 T/CUMM (4-12)
[2020-03-22 04:42] LABS: Albumin 2.3 G/DL (3.4-5.0); Bilirubin,Total 0.4 MG/DL (0.2-1.0); Calcium 8.6 MG/DL (8.5-10.1); Osmolality,Calculated 277.8 MOS/KG (273-304)
[2020-03-22] MEDS: LOSARTAN 25 MG TABLET PO SCH (08:36)
[2020-03-22] MEDS: SODIUM CHLORIDE 1 GM TABLET PER TUBE SCH ×4 (08:36→20:09)
[2020-03-22] MEDS: METOPROLOL TARTRATE 25 MG TABLET PO SCH ×2 (08:37→20:16)
[2020-03-22] MEDS: amLODIPine 10 MG TABLET PO SCH (08:37)
[2020-03-22] MEDS: methylPREDNISolone SOD SUC 40 MG/1 ML VIAL IV SCH ×2 (08:37→20:08)
[2020-03-22] MEDS: BRIMONIDINE 0.15% OPH SOLN 1 DROP/DROPS BOTTLE BOTH EYES SCH ×3 (08:38→20:09)
[2020-03-22] MEDS: BRIMONIDINE/TIMOLOL OPH SOLN 5 ML BOTTLE BOTH EYES SCH ×2 (08:38→20:09)
[2020-03-22] MEDS: PANTOPRAZOLE 40 MG VIAL IV SCH (08:38)
[2020-03-22 13:42] LABS: Basophils % 0.1 % (0.0-0.8); Hematocrit 26.4 VOL% (35.7-47.0); Hemoglobin 8.2 GM/DL (12.0-16.0); Immature Granulocytes % 1.7 %; Immature Granulocytes Absolute 0.27 #; Lymphocytes # 0.6 10*3/uL (1.4-4.0); Lymphocytes % 3.8 % (21.3-54.2); Mean Corpuscular HGB Conc 31.1 GM/DL (32-36); Mean Corpuscular Volume 88.6 FL (87-102); Mean Platelet Volume 11.5 FL (9.6-12.0); Monocytes % 5.7 % (1.7-12.7); Neutrophils % 88.7 % (38.7-73.9); Platelet Count 198 T/CUMM (130-400); Red Blood Count 2.98 MC/CUMM (3.8-5.5); White Blood Count 15.7 T/CUMM (4-12)
[2020-03-22 14:11] LABS: Lymphocytes 4 % (20-55); Myelocytes 1 %; Platelet Estimate Normal; Segmented Neutrophils 92 % (50-85); Total Cells Counted 100
[2020-03-22 14:12] LABS: Hypochromasia 1+; Microcytosis 1+; Toxic Granulation 1+
[2020-03-22 14:13] LABS: Hypersegmented Neutrophil 1+; Polychromasia 1+
[2020-03-23] MEDS: ALBUTEROL/IPRATROPIUM 3 ML NEB RESP TX SCH ×6 (02:57→23:22)
[2020-03-23 04:37] LABS: ABG Base Excess 6.3 MMOL/L (-2.5-2.5); ABG HCO3 30.3 MMOL/L (20-26); ABG Oxygen Saturation 96.8 % (95-100); ABG PH 7.486 (7.35-7.45); ABG PO2 87.7 MM HG (80-95); ABG TCO2 31.5 MMOL/L (23-27); Allen Test Positive; Pt O2 Delivery Device Ventilator
[2020-03-23] MEDS: INSULIN REGULAR 100 UNIT/ML SUBCUT SCH ×6 (04:52→23:59)
[2020-03-23 05:35] LABS: Calcium 8.6 MG/DL (8.5-10.1); Osmolality,Calculated 281.1 MOS/KG (273-304)
[2020-03-23] MEDS ORDERED: amLODIPine 5 MG TABLET PO SCH (08:01)
[2020-03-23] MEDS ORDERED: MIDAZOLAM 2 MG/2 ML VIAL IV ONE (08:27)
[2020-03-23] MEDS: methylPREDNISolone SOD SUC 40 MG/1 ML VIAL IV SCH (09:00)
[2020-03-23] MEDS: BRIMONIDINE/TIMOLOL OPH SOLN 5 ML BOTTLE BOTH EYES SCH ×2 (09:05→20:42)
[2020-03-23] MEDS: PANTOPRAZOLE 40 MG VIAL IV SCH (09:05)
[2020-03-23] MEDS: METOPROLOL TARTRATE 25 MG TABLET PO SCH ×2 (09:05→20:42)
[2020-03-23] MEDS: SODIUM CHLORIDE 1 GM TABLET PER TUBE SCH ×4 (09:10→20:42)
[2020-03-23] MEDS: LOSARTAN 25 MG TABLET PO SCH (09:43)
[2020-03-23] MEDS: BRIMONIDINE 0.15% OPH SOLN 1 DROP/DROPS BOTTLE BOTH EYES SCH ×3 (09:45→20:42)
[2020-03-23] MEDS: INSULIN GLARGINE 100 UNIT/ML SUBCUT SCH (09:56)
[2020-03-24] MEDS: ALBUTEROL/IPRATROPIUM 3 ML NEB RESP TX SCH ×6 (02:45→22:45)
[2020-03-24 04:43] LABS: ABG Base Excess 7.3 MMOL/L (-2.5-2.5); ABG HCO3 31.2 MMOL/L (20-26); ABG Oxygen Saturation 98.7 % (95-100); ABG PCO2 40.8 MM HG (35-48); ABG PH 7.493 (7.35-7.45); ABG TCO2 29.1 MMOL/L (23-27); Allen Test Positive; Pt O2 Delivery Device Ventilator
[2020-03-24] MEDS: INSULIN REGULAR 100 UNIT/ML SUBCUT SCH ×5 (04:53→21:33)
[2020-03-24] MEDS: PANTOPRAZOLE 40 MG VIAL IV SCH (09:00)
[2020-03-24] MEDS: BRIMONIDINE/TIMOLOL OPH SOLN 5 ML BOTTLE BOTH EYES SCH ×2 (09:05→21:35)
[2020-03-24] MEDS: BRIMONIDINE 0.15% OPH SOLN 1 DROP/DROPS BOTTLE BOTH EYES SCH ×3 (09:05→21:35)
[2020-03-24] MEDS: INSULIN GLARGINE 100 UNIT/ML SUBCUT SCH (09:05)
[2020-03-24] MEDS: methylPREDNISolone SOD SUC 40 MG/1 ML VIAL IV SCH (09:20)
[2020-03-24] MEDS: SODIUM CHLORIDE 1 GM TABLET PER TUBE SCH ×4 (09:20→21:35)
[2020-03-24] MEDS: LOSARTAN 25 MG TABLET PO SCH (09:23)
[2020-03-24] MEDS: METOPROLOL TARTRATE 25 MG TABLET PO SCH ×2 (11:53→21:35)
[2020-03-25] MEDS: INSULIN REGULAR 100 UNIT/ML SUBCUT SCH ×4 (00:14→17:45)
[2020-03-25] MEDS: ALBUTEROL/IPRATROPIUM 3 ML NEB RESP TX SCH ×6 (02:53→23:14)
[2020-03-25 05:15] LABS: ABG Base Excess 6.4 MMOL/L (-2.5-2.5); ABG HCO3 30.3 MMOL/L (20-26); ABG PCO2 38.8 MM HG (35-48); ABG PH 7.497 (7.35-7.45); ABG PO2 98.4 MM HG (80-95); ABG TCO2 26.9 MMOL/L (23-27); Allen Test Positive; Pt O2 Delivery Device Ventilator
[2020-03-25 05:43] LABS: Basophils % 0.2 % (0.0-0.8); Eosinophils # 0.1 10*3/uL (0.0-0.87); Eosinophils % 0.7 % (0.00-10.9); Hematocrit 26.6 VOL% (35.7-47.0); Hemoglobin 8.2 GM/DL (12.0-16.0); Immature Granulocytes % 1.9 %; Immature Granulocytes Absolute 0.17 #; Lymphocytes # 1.3 10*3/uL (1.4-4.0); Lymphocytes % 15.1 % (21.3-54.2); Mean Corpuscular HGB Conc 30.8 GM/DL (32-36); Mean Corpuscular Volume 88.4 FL (87-102); Monocytes % 11.8 % (1.7-12.7); Neutrophils % 70.3 % (38.7-73.9); Platelet Count 228 T/CUMM (130-400); Red Blood Count 3.01 MC/CUMM (3.8-5.5); Red Cell Distribution Width 13.9 % (9.3-17.3); White Blood Count 8.9 T/CUMM (4-12)
[2020-03-25 06:07] LABS: Calcium 8.8 MG/DL (8.5-10.1); Osmolality,Calculated 277.7 MOS/KG (273-304)
[2020-03-25 06:36] LABS: PT Patient Result 10.8 SECS (9.8-11.9)
[2020-03-25] MEDS ORDERED: ceFAZolin 1,000 MG VIAL ONE (07:16)
[2020-03-25] MEDS ORDERED: ROCURONIUM 100 MG/10 ML VIAL IV ONE (08:40)
[2020-03-25] MEDS ORDERED: SEVOFLURANE 1 UNIT/15 MINUTE INH ONE (08:40)
[2020-03-25] MEDS ORDERED: MIDAZOLAM 2 MG/2 ML VIAL ONE (08:40)
[2020-03-25] MEDS ORDERED: LACTATED RINGERS 1,000 ML IV ONE (08:40)
[2020-03-25] MEDS ORDERED: PHENYLEPHRINE 1 MG/10 ML SYRINGE IV ONE (08:40)
[2020-03-25] MEDS ORDERED: fentaNYL 100 MCG/2 ML VIAL ONE (08:40)
[2020-03-25] MEDS: BRIMONIDINE 0.15% OPH SOLN 1 DROP/DROPS BOTTLE BOTH EYES SCH ×3 (09:31→21:03)
[2020-03-25] MEDS: SODIUM CHLORIDE 1 GM TABLET PER TUBE SCH ×4 (09:31→21:02)
[2020-03-25] MEDS: BRIMONIDINE/TIMOLOL OPH SOLN 5 ML BOTTLE BOTH EYES SCH ×2 (09:31→21:03)
[2020-03-25] MEDS: LOSARTAN 25 MG TABLET PO SCH (09:31)
[2020-03-25] MEDS: METOPROLOL TARTRATE 25 MG TABLET PO SCH ×2 (09:31→21:02)
[2020-03-25] MEDS: methylPREDNISolone SOD SUC 40 MG/1 ML VIAL IV SCH (09:32)
[2020-03-25] MEDS: INSULIN GLARGINE 100 UNIT/ML SUBCUT SCH (09:32)
[2020-03-25] MEDS: PANTOPRAZOLE 40 MG VIAL IV SCH (09:36)
[2020-03-26] MEDS: INSULIN REGULAR 100 UNIT/ML SUBCUT SCH ×4 (00:55→18:12)
[2020-03-26] MEDS: ALBUTEROL/IPRATROPIUM 3 ML NEB RESP TX SCH ×5 (03:05→18:15)
[2020-03-26 03:52] LABS: ABG Base Excess 5.3 MMOL/L (-2.5-2.5); ABG HCO3 29.3 MMOL/L (20-26); ABG Oxygen Saturation 98.3 % (95-100); ABG PCO2 38.8 MM HG (35-48); ABG PH 7.483 (7.35-7.45); ABG TCO2 26.7 MMOL/L (23-27)
[2020-03-26 04:03] LABS: Basophils % 0.2 % (0.0-0.8); Eosinophils # 0.1 10*3/uL (0.0-0.87); Eosinophils % 0.5 % (0.00-10.9); Hemoglobin 8.7 GM/DL (12.0-16.0); Immature Granulocytes % 1.1 %; Immature Granulocytes Absolute 0.14 #; Lymphocytes # 1.4 10*3/uL (1.4-4.0); Lymphocytes % 10.6 % (21.3-54.2); Mean Corpuscular HGB Conc 31.1 GM/DL (32-36); Mean Corpuscular Volume 87.8 FL (87-102); Mean Platelet Volume 12.2 FL (9.6-12.0); Monocytes % 8.2 % (1.7-12.7); Neutrophils % 79.4 % (38.7-73.9); Platelet Count 253 T/CUMM (130-400); Red Blood Count 3.19 MC/CUMM (3.8-5.5); Red Cell Distribution Width 13.8 % (9.3-17.3); White Blood Count 13.3 T/CUMM (4-12)
[2020-03-26 04:20] LABS: Calcium 8.7 MG/DL (8.5-10.1); Osmolality,Calculated 270.1 MOS/KG (273-304)
[2020-03-26] MEDS: MAGNESIUM SULF RIDER 2 GM in PREMIX 1 EACH IV PRN (07:23)
[2020-03-26] MEDS: POTASSIUM CHLORIDE RIDER 10 MEQ in PREMIX 1 EACH IV PRN ×2 (07:26→08:30)
[2020-03-26] MEDS: BRIMONIDINE 0.15% OPH SOLN 1 DROP/DROPS BOTTLE BOTH EYES SCH ×3 (08:19→21:52)
[2020-03-26] MEDS: BRIMONIDINE/TIMOLOL OPH SOLN 5 ML BOTTLE BOTH EYES SCH ×2 (08:19→21:52)
[2020-03-26] MEDS: LOSARTAN 25 MG TABLET PO SCH (08:28)
[2020-03-26] MEDS: SODIUM CHLORIDE 1 GM TABLET PER TUBE SCH ×4 (08:28→21:53)
[2020-03-26] MEDS: METOPROLOL TARTRATE 25 MG TABLET PO SCH ×2 (08:28→21:52)
[2020-03-26] MEDS: INSULIN GLARGINE 100 UNIT/ML SUBCUT SCH (08:29)
[2020-03-26] MEDS: methylPREDNISolone SOD SUC 40 MG/1 ML VIAL IV SCH (08:30)
[2020-03-26] MEDS: PANTOPRAZOLE 40 MG VIAL IV SCH (08:34)
[2020-03-27] MEDS: INSULIN REGULAR 100 UNIT/ML SUBCUT SCH ×5 (00:05→23:30)
[2020-03-27] MEDS: ALBUTEROL/IPRATROPIUM 3 ML NEB RESP TX SCH ×7 (00:51→23:23)
[2020-03-27] MEDS: MORPHINE 4 MG/1 ML VIAL IV PRN ×2 (01:14→04:46)
[2020-03-27 03:57] LABS: Basophils % 0.1 % (0.0-0.8); Eosinophils # 0.1 10*3/uL (0.0-0.87); Eosinophils % 0.4 % (0.00-10.9); Hematocrit 27.3 VOL% (35.7-47.0); Hemoglobin 8.5 GM/DL (12.0-16.0); Immature Granulocytes % 0.9 %; Immature Granulocytes Absolute 0.14 #; Lymphocytes # 1.4 10*3/uL (1.4-4.0); Lymphocytes % 8.6 % (21.3-54.2); Mean Corpuscular HGB Conc 31.1 GM/DL (32-36); Mean Corpuscular Volume 87.8 FL (87-102); Mean Platelet Volume 12.3 FL (9.6-12.0); Platelet Count 243 T/CUMM (130-400); Red Blood Count 3.11 MC/CUMM (3.8-5.5); White Blood Count 16.2 T/CUMM (4-12)
[2020-03-27 03:59] LABS: ABG Base Excess 6.5 MMOL/L (-2.5-2.5); ABG HCO3 30.4 MMOL/L (20-26); ABG Oxygen Saturation 98.1 % (95-100); ABG PCO2 39.9 MM HG (35-48); ABG PO2 99.9 MM HG (80-95); ABG TCO2 28.3 MMOL/L (23-27); Allen Test Positive; Pt O2 Delivery Device Ventilator
[2020-03-27 04:30] LABS: Calcium 8.5 MG/DL (8.5-10.1)
[2020-03-27 04:40] LABS: Prealbumin 16.2 MG/DL (20-40)
[2020-03-27] MEDS: ACETAMINOPHEN 325 MG TABLET PO PRN (04:50)
[2020-03-27] MEDS ORDERED: SODIUM CHLORIDE 0.9% 500 ML IV SCH (08:00)
[2020-03-27] MEDS: PANTOPRAZOLE 40 MG VIAL IV SCH (08:58)
[2020-03-27] MEDS: methylPREDNISolone SOD SUC 40 MG/1 ML VIAL IV SCH (08:58)
[2020-03-27] MEDS: INSULIN GLARGINE 100 UNIT/ML SUBCUT SCH (08:58)
[2020-03-27] MEDS: METOPROLOL TARTRATE 25 MG TABLET PO SCH ×2 (08:59→21:31)
[2020-03-27] MEDS: BRIMONIDINE 0.15% OPH SOLN 1 DROP/DROPS BOTTLE BOTH EYES SCH ×3 (08:59→21:32)
[2020-03-27] MEDS: SODIUM CHLORIDE 1 GM TABLET PER TUBE SCH ×4 (08:59→21:32)
[2020-03-27] MEDS: BRIMONIDINE/TIMOLOL OPH SOLN 5 ML BOTTLE BOTH EYES SCH ×2 (08:59→21:32)
[2020-03-27] MEDS: levETIRAcetam LIQUID 100 MG/ML 30 ML/BOTTLE PEG SCH ×2 (11:37→17:15)
[2020-03-27] MEDS: ENOXAPARIN 40 MG/0.4 ML SYRINGE SUBCUT SCH (11:37)
[2020-03-28] MEDS: ALBUTEROL/IPRATROPIUM 3 ML NEB RESP TX SCH ×6 (03:19→23:08)
[2020-03-28] MEDS: levETIRAcetam LIQUID 100 MG/ML 30 ML/BOTTLE PEG SCH ×3 (03:40→18:07)
[2020-03-28 04:44] LABS: Basophils % 0.1 % (0.0-0.8); Eosinophils # 0.1 10*3/uL (0.0-0.87); Eosinophils % 0.3 % (0.00-10.9); Hematocrit 28.6 VOL% (35.7-47.0); Hemoglobin 8.6 GM/DL (12.0-16.0); Immature Granulocytes % 0.9 %; Immature Granulocytes Absolute 0.14 #; Lymphocytes # 1.2 10*3/uL (1.4-4.0); Lymphocytes % 7.8 % (21.3-54.2); Mean Corpuscular HGB Conc 30.1 GM/DL (32-36); Mean Corpuscular Volume 91.1 FL (87-102); Mean Platelet Volume 12.8 FL (9.6-12.0); Monocytes % 7.1 % (1.7-12.7); Neutrophils % 83.8 % (38.7-73.9); Platelet Count 192 T/CUMM (130-400); Red Blood Count 3.14 MC/CUMM (3.8-5.5); Red Cell Distribution Width 13.9 % (9.3-17.3); White Blood Count 15.1 T/CUMM (4-12)
[2020-03-28 04:51] LABS: Allen Test Positive; Pt O2 Delivery Device Ventilator
[2020-03-28 04:52] LABS: ABG Base Excess 7.8 MMOL/L (-2.5-2.5); ABG HCO3 31.6 MMOL/L (20-26); ABG Oxygen Saturation 98.5 % (95-100); ABG PCO2 39.8 MM HG (35-48); ABG PH 7.507 (7.35-7.45); ABG TCO2 29.4 MMOL/L (23-27)
[2020-03-28 05:16] LABS: Calcium 8.6 MG/DL (8.5-10.1)
[2020-03-28] MEDS: INSULIN REGULAR 100 UNIT/ML SUBCUT SCH ×3 (06:56→18:10)
[2020-03-28] MEDS: BRIMONIDINE/TIMOLOL OPH SOLN 5 ML BOTTLE BOTH EYES SCH ×2 (08:20→21:52)
[2020-03-28] MEDS: BRIMONIDINE 0.15% OPH SOLN 1 DROP/DROPS BOTTLE BOTH EYES SCH ×3 (08:20→21:52)
[2020-03-28] MEDS: INSULIN GLARGINE 100 UNIT/ML SUBCUT SCH (08:20)
[2020-03-28] MEDS: SODIUM CHLORIDE 1 GM TABLET PER TUBE SCH ×4 (08:21→21:50)
[2020-03-28] MEDS: OMEPRAZOLE ODT 20 MG TABLET PEG SCH (08:21)
[2020-03-28] MEDS: METOPROLOL TARTRATE 25 MG TABLET PO SCH ×2 (08:24→21:49)
[2020-03-28] MEDS: ENOXAPARIN 40 MG/0.4 ML SYRINGE SUBCUT SCH (09:00)
[2020-03-28] MEDS ORDERED: predniSONE 20 MG TABLET PER TUBE SCH (09:00)
[2020-03-29] MEDS: INSULIN REGULAR 100 UNIT/ML SUBCUT SCH ×4 (00:04→18:21)
[2020-03-29] MEDS: levETIRAcetam LIQUID 100 MG/ML 30 ML/BOTTLE PEG SCH ×3 (02:05→17:35)
[2020-03-29] MEDS: ALBUTEROL/IPRATROPIUM 3 ML NEB RESP TX SCH ×5 (03:15→18:14)
[2020-03-29 03:48] LABS: Basophils % 0.1 % (0.0-0.8); Eosinophils % 0.4 % (0.00-10.9); Hemoglobin 7.9 GM/DL (12.0-16.0); Immature Granulocytes % 0.6 %; Immature Granulocytes Absolute 0.06 #; Lymphocytes # 1.1 10*3/uL (1.4-4.0); Lymphocytes % 10.2 % (21.3-54.2); Mean Corpuscular HGB Conc 30.4 GM/DL (32-36); Mean Corpuscular Volume 89.3 FL (87-102); Mean Platelet Volume 12.3 FL (9.6-12.0); Monocytes % 7.7 % (1.7-12.7); Platelet Count 248 T/CUMM (130-400); Red Blood Count 2.91 MC/CUMM (3.8-5.5); Red Cell Distribution Width 13.7 % (9.3-17.3); White Blood Count 10.3 T/CUMM (4-12)
[2020-03-29 04:09] LABS: Calcium 8.8 MG/DL (8.5-10.1); Osmolality,Calculated 279.5 MOS/KG (273-304)
[2020-03-29 04:39] LABS: ABG Base Excess 6.4 MMOL/L (-2.5-2.5); ABG HCO3 29.7 MMOL/L (20-26); ABG Oxygen Saturation 96.5 % (95-100); ABG PCO2 37.2 MM HG (35-48); ABG PO2 81.3 MM HG (80-95); ABG TCO2 30.8 MMOL/L (23-27); Allen Test Positive
[2020-03-29] MEDS: ENOXAPARIN 40 MG/0.4 ML SYRINGE SUBCUT SCH (09:56)
[2020-03-29] MEDS: BRIMONIDINE/TIMOLOL OPH SOLN 5 ML BOTTLE BOTH EYES SCH ×2 (09:56→20:16)
[2020-03-29] MEDS: BRIMONIDINE 0.15% OPH SOLN 1 DROP/DROPS BOTTLE BOTH EYES SCH ×3 (09:56→20:16)
[2020-03-29] MEDS: INSULIN GLARGINE 100 UNIT/ML SUBCUT SCH (09:56)
[2020-03-29] MEDS: SODIUM CHLORIDE 1 GM TABLET PER TUBE SCH ×4 (09:58→20:16)
[2020-03-29] MEDS: predniSONE 20 MG TABLET PER TUBE SCH (09:58)
[2020-03-29] MEDS: OMEPRAZOLE ODT 20 MG TABLET PEG SCH (09:58)
[2020-03-29] MEDS: METOPROLOL TARTRATE 25 MG TABLET PO SCH ×2 (09:58→20:16)
[2020-03-29] MEDS: acetaZOLAMIDE 250 MG TABLET PEG SCH ×2 (10:08→20:16)
[2020-03-29] MEDS: ACETAMINOPHEN 325 MG TABLET PO PRN (23:36)
[2020-03-30] MEDS: ALBUTEROL/IPRATROPIUM 3 ML NEB RESP TX SCH ×7 (00:30→22:49)
[2020-03-30] MEDS: levETIRAcetam LIQUID 100 MG/ML 30 ML/BOTTLE PEG SCH ×3 (02:15→16:59)
[2020-03-30] MEDS: POTASSIUM CHLORIDE RIDER 10 MEQ in PREMIX 1 EACH IV PRN ×2 (02:15→03:20)
[2020-03-30 03:21] LABS: ABG Base Excess -2.4 MMOL/L (-2.5-2.5); ABG HCO3 21.4 MMOL/L (20-26); ABG Oxygen Saturation 98.6 % (95-100); ABG PCO2 32.8 MM HG (35-48); ABG PH 7.433 (7.35-7.45); ABG PO2 158.9 MM HG (80-95); ABG TCO2 22.4 MMOL/L (23-27); Allen Test Positive; Pt O2 Delivery Device Ventilator
[2020-03-30 03:52] LABS: Basophils % 0.2 % (0.0-0.8); Eosinophils % 0.4 % (0.00-10.9); Hematocrit 26.6 VOL% (35.7-47.0); Hemoglobin 8.1 GM/DL (12.0-16.0); Immature Granulocytes % 0.6 %; Immature Granulocytes Absolute 0.06 #; Lymphocytes # 0.9 10*3/uL (1.4-4.0); Lymphocytes % 8.5 % (21.3-54.2); Mean Corpuscular HGB Conc 30.5 GM/DL (32-36); Mean Corpuscular Volume 89.6 FL (87-102); Mean Platelet Volume 12.4 FL (9.6-12.0); Monocytes % 7.3 % (1.7-12.7); Platelet Count 251 T/CUMM (130-400); Red Blood Count 2.97 MC/CUMM (3.8-5.5); Red Cell Distribution Width 13.8 % (9.3-17.3); White Blood Count 10.6 T/CUMM (4-12)
[2020-03-30 04:13] LABS: Hypochromasia 1+; Microcytosis 1+; Platelet Estimate Normal
[2020-03-30 04:18] LABS: Calcium 8.9 MG/DL (8.5-10.1); Osmolality,Calculated 281.7 MOS/KG (273-304)
[2020-03-30] MEDS: INSULIN REGULAR 100 UNIT/ML SUBCUT SCH ×5 (06:05→23:20)
[2020-03-30] MEDS: BRIMONIDINE/TIMOLOL OPH SOLN 5 ML BOTTLE BOTH EYES SCH ×2 (09:57→20:45)
[2020-03-30] MEDS: BRIMONIDINE 0.15% OPH SOLN 1 DROP/DROPS BOTTLE BOTH EYES SCH ×3 (09:57→20:45)
[2020-03-30] MEDS: INSULIN GLARGINE 100 UNIT/ML SUBCUT SCH (09:58)
[2020-03-30] MEDS: OMEPRAZOLE ODT 20 MG TABLET PEG SCH (09:58)
[2020-03-30] MEDS: acetaZOLAMIDE 250 MG TABLET PEG SCH ×2 (09:59→20:50)
[2020-03-30] MEDS: METOPROLOL TARTRATE 25 MG TABLET PO SCH ×2 (09:59→20:50)
[2020-03-30] MEDS: predniSONE 20 MG TABLET PER TUBE SCH (09:59)
[2020-03-30] MEDS: ENOXAPARIN 40 MG/0.4 ML SYRINGE SUBCUT SCH (09:59)
[2020-03-30] MEDS: SODIUM CHLORIDE 1 GM TABLET PER TUBE SCH ×4 (09:59→20:50)
[2020-03-31] MEDS: levETIRAcetam LIQUID 100 MG/ML 30 ML/BOTTLE PEG SCH ×3 (02:15→17:37)
[2020-03-31 02:57] LABS: Allen Test Positive; Pt O2 Delivery Device Ventilator
[2020-03-31 02:58] LABS: ABG Base Excess -2.9 MMOL/L (-2.5-2.5); ABG HCO3 20.5 MMOL/L (20-26); ABG Oxygen Saturation 98.7 % (95-100); ABG PCO2 30.2 MM HG (35-48); ABG PH 7.449 (7.35-7.45); ABG TCO2 21.4 MMOL/L (23-27)
[2020-03-31] MEDS: ALBUTEROL/IPRATROPIUM 3 ML NEB RESP TX SCH ×5 (03:57→19:10)
[2020-03-31 04:46] LABS: Basophils % 0.2 % (0.0-0.8); Eosinophils # 0.1 10*3/uL (0.0-0.87); Eosinophils % 0.8 % (0.00-10.9); Hematocrit 28.1 VOL% (35.7-47.0); Hemoglobin 8.5 GM/DL (12.0-16.0); Immature Granulocytes % 0.6 %; Immature Granulocytes Absolute 0.05 #; Lymphocytes # 1.2 10*3/uL (1.4-4.0); Lymphocytes % 13.1 % (21.3-54.2); Mean Corpuscular HGB Conc 30.2 GM/DL (32-36); Mean Corpuscular Volume 88.4 FL (87-102); Mean Platelet Volume 13.1 FL (9.6-12.0); Monocytes % 8.5 % (1.7-12.7); Neutrophils % 76.8 % (38.7-73.9); Platelet Count 235 T/CUMM (130-400); Red Blood Count 3.18 MC/CUMM (3.8-5.5); Red Cell Distribution Width 13.8 % (9.3-17.3); White Blood Count 8.8 T/CUMM (4-12)
[2020-03-31 05:08] LABS: Calcium 9.1 MG/DL (8.5-10.1); Osmolality,Calculated 276.8 MOS/KG (273-304)
[2020-03-31 05:21] LABS: Hypochromasia 1+
[2020-03-31] MEDS: INSULIN REGULAR 100 UNIT/ML SUBCUT SCH ×3 (06:50→18:08)
[2020-03-31] MEDS: INSULIN GLARGINE 100 UNIT/ML SUBCUT SCH (09:16)
[2020-03-31] MEDS: predniSONE 20 MG TABLET PER TUBE SCH (09:17)
[2020-03-31] MEDS: ENOXAPARIN 40 MG/0.4 ML SYRINGE SUBCUT SCH (09:17)
[2020-03-31] MEDS: OMEPRAZOLE ODT 20 MG TABLET PEG SCH (09:17)
[2020-03-31] MEDS: acetaZOLAMIDE 250 MG TABLET PEG SCH ×2 (09:17→20:18)
[2020-03-31] MEDS: METOPROLOL TARTRATE 25 MG TABLET PO SCH ×2 (09:17→20:18)
[2020-03-31] MEDS: SODIUM CHLORIDE 1 GM TABLET PER TUBE SCH ×4 (09:17→20:18)
[2020-03-31] MEDS: BRIMONIDINE/TIMOLOL OPH SOLN 5 ML BOTTLE BOTH EYES SCH ×2 (09:18→20:19)
[2020-03-31] MEDS: BRIMONIDINE 0.15% OPH SOLN 1 DROP/DROPS BOTTLE BOTH EYES SCH ×3 (09:18→20:19)
[2020-03-31] MEDS: POTASSIUM CHLORIDE RIDER 10 MEQ in PREMIX 1 EACH IV PRN ×2 (20:25→21:17)
[2020-04-01] MEDS: ALBUTEROL/IPRATROPIUM 3 ML NEB RESP TX SCH ×7 (00:23→23:38)
[2020-04-01] MEDS: INSULIN REGULAR 100 UNIT/ML SUBCUT SCH ×4 (00:45→17:25)
[2020-04-01] MEDS: levETIRAcetam LIQUID 100 MG/ML 30 ML/BOTTLE PEG SCH ×3 (02:17→17:26)
[2020-04-01 03:35] LABS: Calcium 9.3 MG/DL (8.5-10.1); Osmolality,Calculated 282.5 MOS/KG (273-304)
[2020-04-01 03:37] LABS: Basophils % 0.4 % (0.0-0.8); Eosinophils # 0.1 10*3/uL (0.0-0.87); Eosinophils % 1.1 % (0.00-10.9); Hematocrit 30.4 VOL% (35.7-47.0); Hemoglobin 9.4 GM/DL (12.0-16.0); Immature Granulocytes % 0.7 %; Immature Granulocytes Absolute 0.05 #; Lymphocytes # 1.4 10*3/uL (1.4-4.0); Lymphocytes % 18.7 % (21.3-54.2); Mean Corpuscular HGB Conc 30.9 GM/DL (32-36); Mean Corpuscular Volume 88.1 FL (87-102); Mean Platelet Volume 12.6 FL (9.6-12.0); Monocytes % 11.1 % (1.7-12.7); Platelet Count 250 T/CUMM (130-400); Red Blood Count 3.45 MC/CUMM (3.8-5.5); Red Cell Distribution Width 13.9 % (9.3-17.3); White Blood Count 7.3 T/CUMM (4-12)
[2020-04-01 03:39] LABS: Prealbumin 17.2 MG/DL (20-40)
[2020-04-01 04:19] LABS: ABG Base Excess -2.8 MMOL/L (-2.5-2.5); ABG HCO3 20.7 MMOL/L (20-26); ABG Oxygen Saturation 98.2 % (95-100); ABG PCO2 31.1 MM HG (35-48); ABG PH 7.442 (7.35-7.45); ABG PO2 114.5 MM HG (80-95); ABG TCO2 21.7 MMOL/L (23-27); Allen Test Positive; Pt O2 Delivery Device Ventilator
[2020-04-01] MEDS ORDERED: MORPHINE 4 MG/1 ML VIAL IV PRN (06:32)
[2020-04-01] MEDS: OMEPRAZOLE ODT 20 MG TABLET PEG SCH (08:24)
[2020-04-01] MEDS: BRIMONIDINE 0.15% OPH SOLN 1 DROP/DROPS BOTTLE BOTH EYES SCH ×3 (08:24→20:41)
[2020-04-01] MEDS: SODIUM CHLORIDE 1 GM TABLET PER TUBE SCH ×4 (08:24→20:39)
[2020-04-01] MEDS: BRIMONIDINE/TIMOLOL OPH SOLN 5 ML BOTTLE BOTH EYES SCH ×2 (08:24→20:40)
[2020-04-01] MEDS: predniSONE 20 MG TABLET PER TUBE SCH (08:25)
[2020-04-01] MEDS: INSULIN GLARGINE 100 UNIT/ML SUBCUT SCH (08:25)
[2020-04-01] MEDS: METOPROLOL TARTRATE 25 MG TABLET PO SCH (08:25)
[2020-04-01] MEDS: acetaZOLAMIDE 250 MG TABLET PEG SCH ×2 (08:25→20:39)
[2020-04-01] MEDS: ENOXAPARIN 40 MG/0.4 ML SYRINGE SUBCUT SCH (09:00)
[2020-04-02] MEDS: INSULIN LISPRO 100 UNIT/ML SUBCUT SCH ×5 (00:52→23:21)
[2020-04-02] MEDS: levETIRAcetam LIQUID 100 MG/ML 30 ML/BOTTLE PEG SCH ×3 (03:58→18:20)
[2020-04-02] MEDS: ALBUTEROL/IPRATROPIUM 3 ML NEB RESP TX SCH ×6 (04:10→23:07)
[2020-04-02] MEDS: BRIMONIDINE 0.15% OPH SOLN 1 DROP/DROPS BOTTLE BOTH EYES SCH ×3 (09:13→20:59)
[2020-04-02] MEDS: predniSONE 20 MG TABLET PER TUBE SCH (09:13)
[2020-04-02] MEDS: acetaZOLAMIDE 250 MG TABLET PEG SCH ×2 (09:13→20:50)
[2020-04-02] MEDS: BRIMONIDINE/TIMOLOL OPH SOLN 5 ML BOTTLE BOTH EYES SCH ×2 (09:13→21:00)
[2020-04-02] MEDS: SODIUM CHLORIDE 1 GM TABLET PER TUBE SCH ×4 (09:13→20:50)
[2020-04-02] MEDS: OMEPRAZOLE ODT 20 MG TABLET PEG SCH (09:14)
[2020-04-02] MEDS: ENOXAPARIN 40 MG/0.4 ML SYRINGE SUBCUT SCH (09:14)
[2020-04-02] MEDS: INSULIN GLARGINE 100 UNIT/ML SUBCUT SCH (09:14)
[2020-04-03] MEDS: levETIRAcetam LIQUID 100 MG/ML 30 ML/BOTTLE PEG SCH ×3 (03:36→18:05)
[2020-04-03] MEDS: ALBUTEROL/IPRATROPIUM 3 ML NEB RESP TX SCH ×6 (03:50→23:36)
[2020-04-03] MEDS: INSULIN LISPRO 100 UNIT/ML SUBCUT SCH ×3 (06:06→18:05)
[2020-04-03] MEDS: BRIMONIDINE 0.15% OPH SOLN 1 DROP/DROPS BOTTLE BOTH EYES SCH ×3 (08:35→20:53)
[2020-04-03] MEDS: INSULIN GLARGINE 100 UNIT/ML SUBCUT SCH (08:35)
[2020-04-03] MEDS: predniSONE 20 MG TABLET PER TUBE SCH (08:40)
[2020-04-03] MEDS: BRIMONIDINE/TIMOLOL OPH SOLN 5 ML BOTTLE BOTH EYES SCH ×2 (08:40→20:53)
[2020-04-03] MEDS: SODIUM CHLORIDE 1 GM TABLET PER TUBE SCH ×4 (08:40→20:50)
[2020-04-03] MEDS: acetaZOLAMIDE 250 MG TABLET PEG SCH ×2 (08:40→20:51)
[2020-04-03] MEDS: OMEPRAZOLE ODT 20 MG TABLET PEG SCH (08:40)
[2020-04-03] MEDS: ENOXAPARIN 40 MG/0.4 ML SYRINGE SUBCUT SCH (10:12)
[2020-04-04] MEDS: INSULIN LISPRO 100 UNIT/ML SUBCUT SCH ×4 (00:04→18:00)
[2020-04-04] MEDS: ALBUTEROL/IPRATROPIUM 3 ML NEB RESP TX SCH ×6 (02:36→22:02)
[2020-04-04] MEDS: levETIRAcetam LIQUID 100 MG/ML 30 ML/BOTTLE PEG SCH ×3 (02:45→17:50)
[2020-04-04 04:08] LABS: Osmolality,Calculated 295.6 MOS/KG (273-304)
[2020-04-04] MEDS: BRIMONIDINE 0.15% OPH SOLN 1 DROP/DROPS BOTTLE BOTH EYES SCH ×3 (07:45→20:59)
[2020-04-04] MEDS: OMEPRAZOLE ODT 20 MG TABLET PEG SCH (08:20)
[2020-04-04] MEDS: BRIMONIDINE/TIMOLOL OPH SOLN 5 ML BOTTLE BOTH EYES SCH ×2 (08:20→20:59)
[2020-04-04] MEDS: SODIUM CHLORIDE 1 GM TABLET PER TUBE SCH ×4 (08:20→20:59)
[2020-04-04] MEDS: INSULIN GLARGINE 100 UNIT/ML SUBCUT SCH (08:20)
[2020-04-04] MEDS: predniSONE 20 MG TABLET PER TUBE SCH (08:20)
[2020-04-04] MEDS: ENOXAPARIN 40 MG/0.4 ML SYRINGE SUBCUT SCH (09:40)
[2020-04-04] MEDS: acetaZOLAMIDE 250 MG TABLET PEG SCH ×2 (11:55→20:59)
[2020-04-05] MEDS: levETIRAcetam LIQUID 100 MG/ML 30 ML/BOTTLE PEG SCH ×3 (02:51→18:14)
[2020-04-05] MEDS: INSULIN LISPRO 100 UNIT/ML SUBCUT SCH ×4 (03:27→18:12)
[2020-04-05] MEDS: ALBUTEROL/IPRATROPIUM 3 ML NEB RESP TX SCH ×6 (03:34→23:59)
[2020-04-05 06:37] LABS: Osmolality,Calculated 296.4 MOS/KG (273-304)
[2020-04-05] MEDS: acetaZOLAMIDE 250 MG TABLET PEG SCH ×2 (10:31→21:02)
[2020-04-05] MEDS: OMEPRAZOLE ODT 20 MG TABLET PEG SCH (10:32)
[2020-04-05] MEDS: SODIUM CHLORIDE 1 GM TABLET PER TUBE SCH ×4 (10:32→21:02)
[2020-04-05] MEDS: BRIMONIDINE/TIMOLOL OPH SOLN 5 ML BOTTLE BOTH EYES SCH ×2 (10:43→21:02)
[2020-04-05] MEDS: ENOXAPARIN 40 MG/0.4 ML SYRINGE SUBCUT SCH (10:45)
[2020-04-05] MEDS: BRIMONIDINE 0.15% OPH SOLN 1 DROP/DROPS BOTTLE BOTH EYES SCH ×3 (10:48→21:02)
[2020-04-05] MEDS: METOPROLOL TARTRATE 25 MG TABLET PO SCH (13:44)
[2020-04-05] MEDS: INSULIN GLARGINE 100 UNIT/ML SUBCUT SCH (13:46)
[2020-04-05] MEDS: POTASSIUM CHLORIDE RIDER 10 MEQ in PREMIX 1 EACH IV PRN ×3 (21:01→23:39)
[2020-04-06] MEDS: POTASSIUM CHLORIDE RIDER 10 MEQ in PREMIX 1 EACH IV PRN (00:18)
[2020-04-06] MEDS: INSULIN LISPRO 100 UNIT/ML SUBCUT SCH ×5 (00:23→23:57)
[2020-04-06] MEDS: levETIRAcetam LIQUID 100 MG/ML 30 ML/BOTTLE PEG SCH ×3 (01:14→18:48)
[2020-04-06] MEDS: ALBUTEROL/IPRATROPIUM 3 ML NEB RESP TX SCH ×5 (03:30→20:07)
[2020-04-06 06:14] LABS: Basophils % 0.4 % (0.0-0.8); Eosinophils # 0.2 10*3/uL (0.0-0.87); Eosinophils % 2.7 % (0.00-10.9); Hematocrit 18.2 VOL% (35.7-47.0); Immature Granulocytes % 0.7 %; Immature Granulocytes Absolute 0.06 #; Lymphocytes # 2.2 10*3/uL (1.4-4.0); Lymphocytes % 25.6 % (21.3-54.2); Mean Corpuscular HGB Conc 29.7 GM/DL (32-36); Mean Corpuscular Volume 91.5 FL (87-102); Mean Platelet Volume 13.7 FL (9.6-12.0); Monocytes % 10.7 % (1.7-12.7); Neutrophils % 59.9 % (38.7-73.9); Platelet Count 205 T/CUMM (130-400); Red Blood Count 1.99 MC/CUMM (3.8-5.5); Red Cell Distribution Width 14.4 % (9.3-17.3); White Blood Count 8.4 T/CUMM (4-12)
[2020-04-06 06:19] LABS: Hemoglobin 5.4 GM/DL (12.0-16.0)
[2020-04-06] MEDS ORDERED: SODIUM CHLORIDE 0.9% 1,000 ML IV PRN (06:23)
[2020-04-06 06:26] LABS: Calcium 8.9 MG/DL (8.5-10.1); Osmolality,Calculated 292.8 MOS/KG (273-304)
[2020-04-06 06:42] LABS: Hypochromasia 3+
[2020-04-06 06:43] LABS: Anisocytosis 2+; Elliptocytes Few; Platelet Estimate Adequate; Polychromasia Slight
[2020-04-06 08:35] LABS: Hemoglobin 8.2 GM/DL (12.0-16.0)
[2020-04-06] MEDS: BRIMONIDINE/TIMOLOL OPH SOLN 5 ML BOTTLE BOTH EYES SCH ×2 (10:08→21:15)
[2020-04-06] MEDS: BRIMONIDINE 0.15% OPH SOLN 1 DROP/DROPS BOTTLE BOTH EYES SCH ×3 (10:08→21:15)
[2020-04-06] MEDS: ENOXAPARIN 40 MG/0.4 ML SYRINGE SUBCUT SCH (10:09)
[2020-04-06] MEDS: acetaZOLAMIDE 250 MG TABLET PEG SCH ×2 (10:10→21:14)
[2020-04-06] MEDS: METOPROLOL TARTRATE 25 MG TABLET PO SCH (10:10)
[2020-04-06] MEDS: OMEPRAZOLE ODT 20 MG TABLET PEG SCH (10:10)
[2020-04-06] MEDS: SODIUM CHLORIDE 1 GM TABLET PER TUBE SCH ×4 (10:11→21:14)
[2020-04-06] MEDS: INSULIN GLARGINE 100 UNIT/ML SUBCUT SCH (10:35)
[2020-04-06] MEDS: MUPIROCIN 2% OINT 22 GM TUBE TOP SCH (21:14)
[2020-04-07] MEDS: ALBUTEROL/IPRATROPIUM 3 ML NEB RESP TX SCH ×7 (00:43→23:37)
[2020-04-07] MEDS: levETIRAcetam LIQUID 100 MG/ML 30 ML/BOTTLE PEG SCH ×3 (02:27→17:35)
[2020-04-07 03:23] LABS: Basophils % 0.2 % (0.0-0.8); Eosinophils # 0.2 10*3/uL (0.0-0.87); Eosinophils % 3.2 % (0.00-10.9); Hematocrit 26.5 VOL% (35.7-47.0); Hemoglobin 7.9 GM/DL (12.0-16.0); Immature Granulocytes % 0.5 %; Immature Granulocytes Absolute 0.03 #; Lymphocytes # 1.5 10*3/uL (1.4-4.0); Lymphocytes % 25.4 % (21.3-54.2); Mean Corpuscular HGB Conc 29.8 GM/DL (32-36); Mean Corpuscular Volume 88.9 FL (87-102); Mean Platelet Volume 12.7 FL (9.6-12.0); Monocytes % 9.2 % (1.7-12.7); Neutrophils % 61.5 % (38.7-73.9); Platelet Count 196 T/CUMM (130-400); Red Blood Count 2.98 MC/CUMM (3.8-5.5); Red Cell Distribution Width 14.1 % (9.3-17.3)
[2020-04-07 03:37] LABS: Calcium 8.8 MG/DL (8.5-10.1)
[2020-04-07] MEDS: INSULIN LISPRO 100 UNIT/ML SUBCUT SCH ×3 (05:23→17:30)
[2020-04-07] MEDS: BRIMONIDINE/TIMOLOL OPH SOLN 5 ML BOTTLE BOTH EYES SCH ×2 (08:31→21:39)
[2020-04-07] MEDS: OMEPRAZOLE ODT 20 MG TABLET PEG SCH (08:31)
[2020-04-07] MEDS: METOPROLOL TARTRATE 25 MG TABLET PO SCH (08:31)
[2020-04-07] MEDS: SODIUM CHLORIDE 1 GM TABLET PER TUBE SCH ×4 (08:31→21:39)
[2020-04-07] MEDS: MUPIROCIN 2% OINT 22 GM TUBE TOP SCH ×2 (08:32→21:40)
[2020-04-07] MEDS: BRIMONIDINE 0.15% OPH SOLN 1 DROP/DROPS BOTTLE BOTH EYES SCH ×3 (08:32→21:40)
[2020-04-07] MEDS: INSULIN GLARGINE 100 UNIT/ML SUBCUT SCH (08:33)
[2020-04-07] MEDS: acetaZOLAMIDE 250 MG TABLET PEG SCH ×2 (09:15→21:39)
[2020-04-07] MEDS: ENOXAPARIN 40 MG/0.4 ML SYRINGE SUBCUT SCH (09:15)
[2020-04-07] MEDS: SCOPOLAMINE 1.5 MG PATCH TRANSDERM SCH (14:12)
[2020-04-08] MEDS: INSULIN LISPRO 100 UNIT/ML SUBCUT SCH ×4 (01:09→17:09)
[2020-04-08] MEDS: levETIRAcetam LIQUID 100 MG/ML 30 ML/BOTTLE PEG SCH ×3 (01:54→18:06)
[2020-04-08] MEDS: ALBUTEROL/IPRATROPIUM 3 ML NEB RESP TX SCH ×6 (03:02→23:26)
[2020-04-08] MEDS: POTASSIUM CHLORIDE RIDER 10 MEQ in PREMIX 1 EACH IV PRN ×3 (03:23→05:32)
[2020-04-08 06:23] LABS: Basophils % 0.4 % (0.0-0.8); Eosinophils # 0.2 10*3/uL (0.0-0.87); Eosinophils % 3.6 % (0.00-10.9); Hematocrit 27.6 VOL% (35.7-47.0); Hemoglobin 8.3 GM/DL (12.0-16.0); Immature Granulocytes % 0.9 %; Immature Granulocytes Absolute 0.05 #; Lymphocytes # 1.4 10*3/uL (1.4-4.0); Lymphocytes % 25.9 % (21.3-54.2); Mean Corpuscular HGB Conc 30.1 GM/DL (32-36); Mean Corpuscular Volume 89.9 FL (87-102); Mean Platelet Volume 13.7 FL (9.6-12.0); Monocytes % 10.5 % (1.7-12.7); Neutrophils % 58.7 % (38.7-73.9); Platelet Count 186 T/CUMM (130-400); Red Blood Count 3.07 MC/CUMM (3.8-5.5); Red Cell Distribution Width 14.3 % (9.3-17.3); White Blood Count 5.6 T/CUMM (4-12)
[2020-04-08 06:29] LABS: Calcium 8.8 MG/DL (8.5-10.1)
[2020-04-08 06:50] LABS: Hypochromasia 2+; Microcytosis 1+; Platelet Estimate Adequate
[2020-04-08] MEDS: BRIMONIDINE/TIMOLOL OPH SOLN 5 ML BOTTLE BOTH EYES SCH ×2 (08:54→20:34)
[2020-04-08] MEDS: BRIMONIDINE 0.15% OPH SOLN 1 DROP/DROPS BOTTLE BOTH EYES SCH ×3 (08:55→20:34)
[2020-04-08] MEDS: INSULIN GLARGINE 100 UNIT/ML SUBCUT SCH (09:12)
[2020-04-08] MEDS: ENOXAPARIN 40 MG/0.4 ML SYRINGE SUBCUT SCH (09:13)
[2020-04-08] MEDS: acetaZOLAMIDE 250 MG TABLET PEG SCH ×2 (09:16→20:33)
[2020-04-08] MEDS: OMEPRAZOLE ODT 20 MG TABLET PEG SCH (09:17)
[2020-04-08] MEDS: MUPIROCIN 2% OINT 22 GM TUBE TOP SCH ×2 (09:17→20:33)
[2020-04-08] MEDS: METOPROLOL TARTRATE 25 MG TABLET PO SCH (09:17)
[2020-04-08] MEDS: SODIUM CHLORIDE 1 GM TABLET PER TUBE SCH ×4 (09:17→20:33)
[2020-04-08 11:23] LABS: Amorphous Crystals,Urine Few /HPF (Few); Bilirubin,Urine Negative (Negative); Blood, Urine Large mg/dL (Negative); Glucose,Urine (UA) Negative (Negative); Ketones,Urine Negative (Negative); Nitrite,Urine Negative (Negative); Protein,Urine 30 MG/DL; RBC,Urine 349 /HPF (0-4); Urine Appearance CLOUDY (Clear); Urine Color Yellow (Yellow); Urine Specific Gravity 1.014 (1.001-1.035); WBC,Urine 139 /HPF (0-6)
[2020-04-09] MEDS: INSULIN LISPRO 100 UNIT/ML SUBCUT SCH ×4 (00:49→17:01)
[2020-04-09] MEDS: levETIRAcetam LIQUID 100 MG/ML 30 ML/BOTTLE PEG SCH ×3 (02:10→17:00)
[2020-04-09] MEDS: ALBUTEROL/IPRATROPIUM 3 ML NEB RESP TX SCH ×6 (02:35→23:44)
[2020-04-09] MEDS: SODIUM CHLORIDE 1 GM TABLET PER TUBE SCH ×4 (08:36→20:31)
[2020-04-09] MEDS: acetaZOLAMIDE 250 MG TABLET PEG SCH ×2 (08:36→20:31)
[2020-04-09] MEDS: OMEPRAZOLE ODT 20 MG TABLET PEG SCH (08:36)
[2020-04-09] MEDS: METOPROLOL TARTRATE 25 MG TABLET PO SCH (08:37)
[2020-04-09] MEDS: INSULIN GLARGINE 100 UNIT/ML SUBCUT SCH (08:43)
[2020-04-09] MEDS: ENOXAPARIN 40 MG/0.4 ML SYRINGE SUBCUT SCH (10:45)
[2020-04-09] MEDS: BRIMONIDINE/TIMOLOL OPH SOLN 5 ML BOTTLE BOTH EYES SCH ×2 (10:48→20:31)
[2020-04-09] MEDS: MUPIROCIN 2% OINT 22 GM TUBE TOP SCH ×2 (10:48→20:32)
[2020-04-09] MEDS: BRIMONIDINE 0.15% OPH SOLN 1 DROP/DROPS BOTTLE BOTH EYES SCH ×3 (10:48→20:31)
[2020-04-10] MEDS: INSULIN LISPRO 100 UNIT/ML SUBCUT SCH ×4 (00:14→18:15)
[2020-04-10] MEDS: ALBUTEROL/IPRATROPIUM 3 ML NEB RESP TX SCH ×6 (03:17→23:05)
[2020-04-10] MEDS: levETIRAcetam LIQUID 100 MG/ML 30 ML/BOTTLE PEG SCH ×3 (05:28→17:37)
[2020-04-10] MEDS: ENOXAPARIN 40 MG/0.4 ML SYRINGE SUBCUT SCH (10:05)
[2020-04-10] MEDS: INSULIN GLARGINE 100 UNIT/ML SUBCUT SCH (10:06)
[2020-04-10] MEDS: OMEPRAZOLE ODT 20 MG TABLET PEG SCH (10:06)
[2020-04-10] MEDS: SCOPOLAMINE 1.5 MG PATCH TRANSDERM SCH (10:07)
[2020-04-10] MEDS: acetaZOLAMIDE 250 MG TABLET PEG SCH ×2 (10:07→20:36)
[2020-04-10] MEDS: METOPROLOL TARTRATE 25 MG TABLET PO SCH (10:08)
[2020-04-10] MEDS: SODIUM CHLORIDE 1 GM TABLET PER TUBE SCH ×4 (10:08→20:38)
[2020-04-10] MEDS: BRIMONIDINE 0.15% OPH SOLN 1 DROP/DROPS BOTTLE BOTH EYES SCH ×3 (10:12→20:37)
[2020-04-10] MEDS: MUPIROCIN 2% OINT 22 GM TUBE TOP SCH ×2 (10:13→20:37)
[2020-04-10] MEDS: BRIMONIDINE/TIMOLOL OPH SOLN 5 ML BOTTLE BOTH EYES SCH ×2 (10:13→20:38)
[2020-04-11] MEDS: INSULIN LISPRO 100 UNIT/ML SUBCUT SCH ×4 (01:05→18:34)
[2020-04-11] MEDS: levETIRAcetam LIQUID 100 MG/ML 30 ML/BOTTLE PEG SCH ×3 (01:05→18:06)
[2020-04-11] MEDS: ALBUTEROL/IPRATROPIUM 3 ML NEB RESP TX SCH ×6 (02:55→23:18)
[2020-04-11] MEDS: MUPIROCIN 2% OINT 22 GM TUBE TOP SCH ×2 (09:29→21:27)
[2020-04-11] MEDS: BRIMONIDINE/TIMOLOL OPH SOLN 5 ML BOTTLE BOTH EYES SCH ×2 (09:29→21:27)
[2020-04-11] MEDS: BRIMONIDINE 0.15% OPH SOLN 1 DROP/DROPS BOTTLE BOTH EYES SCH ×3 (09:30→21:27)
[2020-04-11] MEDS: ENOXAPARIN 40 MG/0.4 ML SYRINGE SUBCUT SCH (09:32)
[2020-04-11] MEDS: INSULIN GLARGINE 100 UNIT/ML SUBCUT SCH (09:32)
[2020-04-11] MEDS: acetaZOLAMIDE 250 MG TABLET PEG SCH ×2 (09:33→21:27)
[2020-04-11] MEDS: METOPROLOL TARTRATE 25 MG TABLET PO SCH (09:33)
[2020-04-11] MEDS: OMEPRAZOLE ODT 20 MG TABLET PEG SCH (09:33)
[2020-04-11] MEDS: SODIUM CHLORIDE 1 GM TABLET PER TUBE SCH ×4 (09:34→21:27)
[2020-04-12] MEDS: levETIRAcetam LIQUID 100 MG/ML 30 ML/BOTTLE PEG SCH ×3 (02:20→17:05)
[2020-04-12] MEDS: ALBUTEROL/IPRATROPIUM 3 ML NEB RESP TX SCH ×5 (02:55→18:58)
[2020-04-12] MEDS: INSULIN LISPRO 100 UNIT/ML SUBCUT SCH ×4 (03:31→17:17)
[2020-04-12] MEDS: BRIMONIDINE/TIMOLOL OPH SOLN 5 ML BOTTLE BOTH EYES SCH ×2 (08:16→20:13)
[2020-04-12] MEDS: BRIMONIDINE 0.15% OPH SOLN 1 DROP/DROPS BOTTLE BOTH EYES SCH ×3 (08:17→20:13)
[2020-04-12] MEDS: MUPIROCIN 2% OINT 22 GM TUBE TOP SCH ×2 (08:17→20:13)
[2020-04-12] MEDS: INSULIN GLARGINE 100 UNIT/ML SUBCUT SCH (08:19)
[2020-04-12] MEDS: METOPROLOL TARTRATE 25 MG TABLET PO SCH (08:20)
[2020-04-12] MEDS: OMEPRAZOLE ODT 20 MG TABLET PEG SCH (08:20)
[2020-04-12] MEDS: SODIUM CHLORIDE 1 GM TABLET PER TUBE SCH ×4 (08:21→20:13)
[2020-04-12] MEDS: acetaZOLAMIDE 250 MG TABLET PEG SCH ×2 (08:21→20:14)
[2020-04-12] MEDS: ENOXAPARIN 40 MG/0.4 ML SYRINGE SUBCUT SCH (09:33)
[2020-04-13] MEDS: INSULIN LISPRO 100 UNIT/ML SUBCUT SCH ×4 (00:01→18:11)
[2020-04-13] MEDS: ALBUTEROL/IPRATROPIUM 3 ML NEB RESP TX SCH ×6 (00:44→20:02)
[2020-04-13] MEDS: levETIRAcetam LIQUID 100 MG/ML 30 ML/BOTTLE PEG SCH ×3 (02:35→17:03)
[2020-04-13] MEDS: OMEPRAZOLE ODT 20 MG TABLET PEG SCH (08:32)
[2020-04-13] MEDS: METOPROLOL TARTRATE 25 MG TABLET PO SCH (08:32)
[2020-04-13] MEDS: acetaZOLAMIDE 250 MG TABLET PEG SCH ×2 (08:32→20:33)
[2020-04-13] MEDS: INSULIN GLARGINE 100 UNIT/ML SUBCUT SCH (08:33)
[2020-04-13] MEDS: SODIUM CHLORIDE 1 GM TABLET PER TUBE SCH ×4 (08:33→20:33)
[2020-04-13] MEDS: SCOPOLAMINE 1.5 MG PATCH TRANSDERM SCH (08:33)
[2020-04-13] MEDS: MUPIROCIN 2% OINT 22 GM TUBE TOP SCH ×2 (08:37→20:34)
[2020-04-13] MEDS: BRIMONIDINE/TIMOLOL OPH SOLN 5 ML BOTTLE BOTH EYES SCH ×2 (08:37→20:34)
[2020-04-13] MEDS: BRIMONIDINE 0.15% OPH SOLN 1 DROP/DROPS BOTTLE BOTH EYES SCH ×3 (08:37→20:33)
[2020-04-13] MEDS: ENOXAPARIN 40 MG/0.4 ML SYRINGE SUBCUT SCH (09:04)
[2020-04-14] MEDS: ALBUTEROL/IPRATROPIUM 3 ML NEB RESP TX SCH ×6 (00:18→19:55)
[2020-04-14] MEDS: INSULIN LISPRO 100 UNIT/ML SUBCUT SCH ×4 (02:43→17:38)
[2020-04-14] MEDS: levETIRAcetam LIQUID 100 MG/ML 30 ML/BOTTLE PEG SCH ×3 (02:43→17:37)
[2020-04-14] MEDS: OMEPRAZOLE ODT 20 MG TABLET PEG SCH (08:32)
[2020-04-14] MEDS: INSULIN GLARGINE 100 UNIT/ML SUBCUT SCH (08:32)
[2020-04-14] MEDS: acetaZOLAMIDE 250 MG TABLET PEG SCH ×2 (08:32→20:01)
[2020-04-14] MEDS: SODIUM CHLORIDE 1 GM TABLET PER TUBE SCH ×4 (08:33→20:00)
[2020-04-14] MEDS: MUPIROCIN 2% OINT 22 GM TUBE TOP SCH ×2 (08:33→20:00)
[2020-04-14] MEDS: BRIMONIDINE/TIMOLOL OPH SOLN 5 ML BOTTLE BOTH EYES SCH ×2 (08:33→20:00)
[2020-04-14] MEDS: BRIMONIDINE 0.15% OPH SOLN 1 DROP/DROPS BOTTLE BOTH EYES SCH ×3 (08:33→20:00)
[2020-04-14] MEDS: METOPROLOL TARTRATE 25 MG TABLET PO SCH (08:33)
[2020-04-14] MEDS: ENOXAPARIN 40 MG/0.4 ML SYRINGE SUBCUT SCH (09:36)
[2020-04-15] MEDS: ALBUTEROL/IPRATROPIUM 3 ML NEB RESP TX SCH ×7 (00:06→23:31)
[2020-04-15] MEDS: INSULIN LISPRO 100 UNIT/ML SUBCUT SCH ×4 (01:26→18:52)
[2020-04-15] MEDS: levETIRAcetam LIQUID 100 MG/ML 30 ML/BOTTLE PEG SCH ×3 (02:15→18:51)
[2020-04-15 05:31] LABS: Basophils % 0.4 % (0.0-0.8); Eosinophils # 0.1 10*3/uL (0.0-0.87); Eosinophils % 0.8 % (0.00-10.9); Hematocrit 36.2 VOL% (35.7-47.0); Immature Granulocytes % 0.5 %; Immature Granulocytes Absolute 0.05 #; Lymphocytes # 1.6 10*3/uL (1.4-4.0); Lymphocytes % 15.4 % (21.3-54.2); Mean Corpuscular HGB Conc 30.4 GM/DL (32-36); Mean Corpuscular Volume 87.7 FL (87-102); Mean Platelet Volume 13.8 FL (9.6-12.0); Monocytes % 9.7 % (1.7-12.7); Neutrophils % 73.2 % (38.7-73.9); Platelet Count 220 T/CUMM (130-400); Red Blood Count 4.13 MC/CUMM (3.8-5.5); Red Cell Distribution Width 14.6 % (9.3-17.3); White Blood Count 10.3 T/CUMM (4-12)
[2020-04-15 05:48] LABS: Calcium 9.6 MG/DL (8.5-10.1); Osmolality,Calculated 277.5 MOS/KG (273-304); Prealbumin 21.9 MG/DL (20-40)
[2020-04-15 06:03] LABS: Hypochromasia 1+; Microcytosis 1+; Platelet Estimate Adequate
[2020-04-15] MEDS: ENOXAPARIN 40 MG/0.4 ML SYRINGE SUBCUT SCH (09:11)
[2020-04-15] MEDS: acetaZOLAMIDE 250 MG TABLET PEG SCH ×2 (09:11→20:34)
[2020-04-15] MEDS: INSULIN GLARGINE 100 UNIT/ML SUBCUT SCH (09:11)
[2020-04-15] MEDS: OMEPRAZOLE ODT 20 MG TABLET PEG SCH (09:12)
[2020-04-15] MEDS: METOPROLOL TARTRATE 25 MG TABLET PO SCH (09:12)
[2020-04-15] MEDS: SODIUM CHLORIDE 1 GM TABLET PER TUBE SCH ×4 (09:12→20:34)
[2020-04-15] MEDS: MUPIROCIN 2% OINT 22 GM TUBE TOP SCH ×2 (09:13→20:35)
[2020-04-15] MEDS: BRIMONIDINE 0.15% OPH SOLN 1 DROP/DROPS BOTTLE BOTH EYES SCH ×3 (09:14→20:35)
[2020-04-15] MEDS: BRIMONIDINE/TIMOLOL OPH SOLN 5 ML BOTTLE BOTH EYES SCH ×2 (09:14→20:35)
[2020-04-16] MEDS: INSULIN LISPRO 100 UNIT/ML SUBCUT SCH ×4 (00:21→17:11)
[2020-04-16] MEDS: levETIRAcetam LIQUID 100 MG/ML 30 ML/BOTTLE PEG SCH ×3 (02:19→17:17)
[2020-04-16] MEDS: ALBUTEROL/IPRATROPIUM 3 ML NEB RESP TX SCH ×5 (03:17→20:08)
[2020-04-16] MEDS: BRIMONIDINE 0.15% OPH SOLN 1 DROP/DROPS BOTTLE BOTH EYES SCH ×3 (09:07→20:26)
[2020-04-16] MEDS: BRIMONIDINE/TIMOLOL OPH SOLN 5 ML BOTTLE BOTH EYES SCH ×2 (09:08→20:26)
[2020-04-16] MEDS: acetaZOLAMIDE 250 MG TABLET PEG SCH ×2 (09:09→20:26)
[2020-04-16] MEDS: METOPROLOL TARTRATE 25 MG TABLET PO SCH (09:09)
[2020-04-16] MEDS: OMEPRAZOLE ODT 20 MG TABLET PEG SCH (09:09)
[2020-04-16] MEDS: ENOXAPARIN 40 MG/0.4 ML SYRINGE SUBCUT SCH (09:10)
[2020-04-16] MEDS: SCOPOLAMINE 1.5 MG PATCH TRANSDERM SCH (09:13)
[2020-04-16] MEDS: MUPIROCIN 2% OINT 22 GM TUBE TOP SCH ×2 (09:14→20:26)
[2020-04-16] MEDS: INSULIN GLARGINE 100 UNIT/ML SUBCUT SCH (09:15)
[2020-04-16] MEDS: SODIUM CHLORIDE 1 GM TABLET PER TUBE SCH ×4 (10:50→20:26)
[2020-04-17] MEDS: ALBUTEROL/IPRATROPIUM 3 ML NEB RESP TX SCH ×7 (00:27→23:15)
[2020-04-17] MEDS: INSULIN LISPRO 100 UNIT/ML SUBCUT SCH ×4 (01:54→17:13)
[2020-04-17] MEDS: levETIRAcetam LIQUID 100 MG/ML 30 ML/BOTTLE PEG SCH ×3 (02:18→17:13)
[2020-04-17] MEDS: acetaZOLAMIDE 250 MG TABLET PEG SCH ×2 (08:59→20:39)
[2020-04-17] MEDS: METOPROLOL TARTRATE 25 MG TABLET PO SCH (08:59)
[2020-04-17] MEDS: SODIUM CHLORIDE 1 GM TABLET PER TUBE SCH ×4 (09:00→20:39)
[2020-04-17] MEDS: OMEPRAZOLE ODT 20 MG TABLET PEG SCH (09:00)
[2020-04-17] MEDS: ENOXAPARIN 40 MG/0.4 ML SYRINGE SUBCUT SCH (09:01)
[2020-04-17] MEDS: INSULIN GLARGINE 100 UNIT/ML SUBCUT SCH (10:00)
[2020-04-17] MEDS: MUPIROCIN 2% OINT 22 GM TUBE TOP SCH ×2 (10:01→20:39)
[2020-04-17] MEDS: BRIMONIDINE 0.15% OPH SOLN 1 DROP/DROPS BOTTLE BOTH EYES SCH ×3 (10:01→20:39)
[2020-04-17] MEDS: BRIMONIDINE/TIMOLOL OPH SOLN 5 ML BOTTLE BOTH EYES SCH ×2 (10:03→20:39)
[2020-04-18] MEDS: INSULIN LISPRO 100 UNIT/ML SUBCUT SCH ×4 (00:15→17:24)
[2020-04-18] MEDS: levETIRAcetam LIQUID 100 MG/ML 30 ML/BOTTLE PEG SCH ×3 (02:40→17:25)
[2020-04-18] MEDS: ALBUTEROL/IPRATROPIUM 3 ML NEB RESP TX SCH ×6 (02:50→23:26)
[2020-04-18] MEDS: METOPROLOL TARTRATE 25 MG TABLET PO SCH (08:32)
[2020-04-18] MEDS: OMEPRAZOLE ODT 20 MG TABLET PEG SCH (08:32)
[2020-04-18] MEDS: SODIUM CHLORIDE 1 GM TABLET PER TUBE SCH ×4 (08:33→20:19)
[2020-04-18] MEDS: INSULIN GLARGINE 100 UNIT/ML SUBCUT SCH (08:33)
[2020-04-18] MEDS: acetaZOLAMIDE 250 MG TABLET PEG SCH ×2 (08:40→20:18)
[2020-04-18] MEDS: MUPIROCIN 2% OINT 22 GM TUBE TOP SCH ×2 (08:41→20:18)
[2020-04-18] MEDS: BRIMONIDINE 0.15% OPH SOLN 1 DROP/DROPS BOTTLE BOTH EYES SCH ×3 (08:41→20:19)
[2020-04-18] MEDS: BRIMONIDINE/TIMOLOL OPH SOLN 5 ML BOTTLE BOTH EYES SCH ×2 (08:41→20:19)
[2020-04-18] MEDS: ENOXAPARIN 40 MG/0.4 ML SYRINGE SUBCUT SCH (09:11)
[2020-04-19] MEDS: levETIRAcetam LIQUID 100 MG/ML 30 ML/BOTTLE PEG SCH ×3 (01:50→17:35)
[2020-04-19] MEDS: ALBUTEROL/IPRATROPIUM 3 ML NEB RESP TX SCH ×6 (04:00→23:20)
[2020-04-19] MEDS: INSULIN LISPRO 100 UNIT/ML SUBCUT SCH ×4 (04:42→17:46)
[2020-04-19] MEDS: ENOXAPARIN 40 MG/0.4 ML SYRINGE SUBCUT SCH (09:55)
[2020-04-19] MEDS: INSULIN GLARGINE 100 UNIT/ML SUBCUT SCH (10:04)
[2020-04-19] MEDS: BRIMONIDINE 0.15% OPH SOLN 1 DROP/DROPS BOTTLE BOTH EYES SCH ×3 (10:09→20:55)
[2020-04-19] MEDS: MUPIROCIN 2% OINT 22 GM TUBE TOP SCH ×2 (10:09→20:55)
[2020-04-19] MEDS: acetaZOLAMIDE 250 MG TABLET PEG SCH ×2 (10:09→20:55)
[2020-04-19] MEDS: BRIMONIDINE/TIMOLOL OPH SOLN 5 ML BOTTLE BOTH EYES SCH ×2 (10:09→20:55)
[2020-04-19] MEDS: SODIUM CHLORIDE 1 GM TABLET PER TUBE SCH ×4 (10:10→20:55)
[2020-04-19] MEDS: OMEPRAZOLE ODT 20 MG TABLET PEG SCH (10:10)
[2020-04-19] MEDS: SCOPOLAMINE 1.5 MG PATCH TRANSDERM SCH (10:10)
[2020-04-19] MEDS: METOPROLOL TARTRATE 25 MG TABLET PO SCH (10:10)
[2020-04-20] MEDS: INSULIN LISPRO 100 UNIT/ML SUBCUT SCH ×4 (00:20→18:20)
[2020-04-20] MEDS: levETIRAcetam LIQUID 100 MG/ML 30 ML/BOTTLE PEG SCH ×3 (01:49→18:17)
[2020-04-20] MEDS: ALBUTEROL/IPRATROPIUM 3 ML NEB RESP TX SCH ×6 (03:19→23:18)
[2020-04-20] MEDS: ENOXAPARIN 40 MG/0.4 ML SYRINGE SUBCUT SCH (09:30)
[2020-04-20] MEDS: SODIUM CHLORIDE 1 GM TABLET PER TUBE SCH ×4 (09:31→20:43)
[2020-04-20] MEDS: OMEPRAZOLE ODT 20 MG TABLET PEG SCH (09:31)
[2020-04-20] MEDS: METOPROLOL TARTRATE 25 MG TABLET PO SCH (09:31)
[2020-04-20] MEDS: BRIMONIDINE/TIMOLOL OPH SOLN 5 ML BOTTLE BOTH EYES SCH ×2 (09:32→20:43)
[2020-04-20] MEDS: MUPIROCIN 2% OINT 22 GM TUBE TOP SCH ×2 (09:32→20:43)
[2020-04-20] MEDS: BRIMONIDINE 0.15% OPH SOLN 1 DROP/DROPS BOTTLE BOTH EYES SCH ×3 (09:32→20:43)
[2020-04-20] MEDS: INSULIN GLARGINE 100 UNIT/ML SUBCUT SCH (09:35)
[2020-04-20] MEDS: acetaZOLAMIDE 250 MG TABLET PEG SCH ×2 (09:35→20:43)
[2020-04-21] MEDS: INSULIN LISPRO 100 UNIT/ML SUBCUT SCH ×4 (00:02→19:13)
[2020-04-21] MEDS: levETIRAcetam LIQUID 100 MG/ML 30 ML/BOTTLE PEG SCH ×3 (02:53→19:13)
[2020-04-21] MEDS: ALBUTEROL/IPRATROPIUM 3 ML NEB RESP TX SCH ×6 (03:23→23:18)
[2020-04-21] MEDS: acetaZOLAMIDE 250 MG TABLET PEG SCH ×2 (09:26→21:50)
[2020-04-21] MEDS: METOPROLOL TARTRATE 25 MG TABLET PO SCH (09:27)
[2020-04-21] MEDS: OMEPRAZOLE ODT 20 MG TABLET PEG SCH (09:27)
[2020-04-21] MEDS: ENOXAPARIN 40 MG/0.4 ML SYRINGE SUBCUT SCH (09:27)
[2020-04-21] MEDS: SODIUM CHLORIDE 1 GM TABLET PER TUBE SCH ×4 (09:27→21:50)
[2020-04-21] MEDS: BRIMONIDINE 0.15% OPH SOLN 1 DROP/DROPS BOTTLE BOTH EYES SCH ×3 (09:28→21:48)
[2020-04-21] MEDS: INSULIN GLARGINE 100 UNIT/ML SUBCUT SCH (09:28)
[2020-04-21] MEDS: BRIMONIDINE/TIMOLOL OPH SOLN 5 ML BOTTLE BOTH EYES SCH ×2 (09:28→21:48)
[2020-04-21] MEDS: MUPIROCIN 2% OINT 22 GM TUBE TOP SCH ×2 (09:28→21:52)
[2020-04-22] MEDS: INSULIN LISPRO 100 UNIT/ML SUBCUT SCH ×4 (00:48→17:04)
[2020-04-22] MEDS: levETIRAcetam LIQUID 100 MG/ML 30 ML/BOTTLE PEG SCH ×3 (01:31→17:15)
[2020-04-22] MEDS: ALBUTEROL/IPRATROPIUM 3 ML NEB RESP TX SCH ×4 (04:44→19:04)
[2020-04-22] MEDS: INSULIN GLARGINE 100 UNIT/ML SUBCUT SCH (09:55)
[2020-04-22] MEDS: ENOXAPARIN 40 MG/0.4 ML SYRINGE SUBCUT SCH (09:56)
[2020-04-22] MEDS: SCOPOLAMINE 1.5 MG PATCH TRANSDERM SCH (09:56)
[2020-04-22] MEDS: SODIUM CHLORIDE 1 GM TABLET PER TUBE SCH ×4 (09:56→21:34)
[2020-04-22] MEDS: OMEPRAZOLE ODT 20 MG TABLET PEG SCH (09:58)
[2020-04-22] MEDS: METOPROLOL TARTRATE 25 MG TABLET PO SCH (09:58)
[2020-04-22] MEDS: BRIMONIDINE/TIMOLOL OPH SOLN 5 ML BOTTLE BOTH EYES SCH ×2 (09:59→21:35)
[2020-04-22] MEDS: MUPIROCIN 2% OINT 22 GM TUBE TOP SCH ×2 (10:00→21:34)
[2020-04-22] MEDS: BRIMONIDINE 0.15% OPH SOLN 1 DROP/DROPS BOTTLE BOTH EYES SCH ×3 (10:00→21:35)
[2020-04-22] MEDS: acetaZOLAMIDE 250 MG TABLET PEG SCH ×2 (10:02→21:34)
[2020-04-23] MEDS: ALBUTEROL/IPRATROPIUM 3 ML NEB RESP TX SCH ×7 (00:36→23:56)
[2020-04-23] MEDS: INSULIN LISPRO 100 UNIT/ML SUBCUT SCH ×3 (00:54→22:24)
[2020-04-23] MEDS: levETIRAcetam LIQUID 100 MG/ML 30 ML/BOTTLE PEG SCH ×3 (02:43→17:31)
[2020-04-23 08:35] LABS: Calcium 9.4 MG/DL (8.5-10.1); Osmolality,Calculated 277.4 MOS/KG (273-304)
[2020-04-23] MEDS: OMEPRAZOLE ODT 20 MG TABLET PEG SCH (09:57)
[2020-04-23] MEDS: SODIUM CHLORIDE 1 GM TABLET PER TUBE SCH ×4 (09:57→21:29)
[2020-04-23] MEDS: METOPROLOL TARTRATE 25 MG TABLET PO SCH (09:57)
[2020-04-23] MEDS: acetaZOLAMIDE 250 MG TABLET PEG SCH ×2 (09:58→21:29)
[2020-04-23] MEDS: INSULIN GLARGINE 100 UNIT/ML SUBCUT SCH (09:58)
[2020-04-23] MEDS: MUPIROCIN 2% OINT 22 GM TUBE TOP SCH ×2 (09:59→21:38)
[2020-04-23] MEDS: BRIMONIDINE 0.15% OPH SOLN 1 DROP/DROPS BOTTLE BOTH EYES SCH ×3 (09:59→21:37)
[2020-04-23] MEDS: BRIMONIDINE/TIMOLOL OPH SOLN 5 ML BOTTLE BOTH EYES SCH ×2 (09:59→21:37)
[2020-04-23] MEDS: ENOXAPARIN 40 MG/0.4 ML SYRINGE SUBCUT SCH (10:05)
[2020-04-24] MEDS: levETIRAcetam LIQUID 100 MG/ML 30 ML/BOTTLE PEG SCH ×3 (02:15→17:43)
[2020-04-24] MEDS: ALBUTEROL/IPRATROPIUM 3 ML NEB RESP TX SCH ×7 (03:13→23:50)
[2020-04-24] MEDS: INSULIN LISPRO 100 UNIT/ML SUBCUT SCH ×2 (08:20→21:07)
[2020-04-24] MEDS: OMEPRAZOLE ODT 20 MG TABLET PEG SCH (09:46)
[2020-04-24] MEDS: acetaZOLAMIDE 250 MG TABLET PEG SCH ×2 (09:47→21:04)
[2020-04-24] MEDS: BRIMONIDINE/TIMOLOL OPH SOLN 5 ML BOTTLE BOTH EYES SCH ×2 (09:47→21:05)
[2020-04-24] MEDS: METOPROLOL TARTRATE 25 MG TABLET PO SCH (09:47)
[2020-04-24] MEDS: BRIMONIDINE 0.15% OPH SOLN 1 DROP/DROPS BOTTLE BOTH EYES SCH ×3 (09:47→21:05)
[2020-04-24] MEDS: SODIUM CHLORIDE 1 GM TABLET PER TUBE SCH ×4 (09:47→21:04)
[2020-04-24] MEDS: INSULIN GLARGINE 100 UNIT/ML SUBCUT SCH (09:49)
[2020-04-24] MEDS: MUPIROCIN 2% OINT 22 GM TUBE TOP SCH ×2 (09:52→21:05)
[2020-04-24] MEDS: ENOXAPARIN 40 MG/0.4 ML SYRINGE SUBCUT SCH (11:11)
[2020-04-24] MEDS: ATROPINE 1 % OPH SOLN 5 ML BOTTLE BOTH EYES SCH ×2 (17:42→21:04)
[2020-04-25] MEDS: levETIRAcetam LIQUID 100 MG/ML 30 ML/BOTTLE PEG SCH ×3 (01:21→17:34)
[2020-04-25] MEDS: ALBUTEROL/IPRATROPIUM 3 ML NEB RESP TX SCH ×6 (03:12→23:51)
[2020-04-25] MEDS: MUPIROCIN 2% OINT 22 GM TUBE TOP SCH ×2 (09:55→20:52)
[2020-04-25] MEDS: BRIMONIDINE 0.15% OPH SOLN 1 DROP/DROPS BOTTLE BOTH EYES SCH ×3 (09:55→20:51)
[2020-04-25] MEDS: BRIMONIDINE/TIMOLOL OPH SOLN 5 ML BOTTLE BOTH EYES SCH ×2 (09:55→20:51)
[2020-04-25] MEDS: SCOPOLAMINE 1.5 MG PATCH TRANSDERM SCH (09:56)
[2020-04-25] MEDS: acetaZOLAMIDE 250 MG TABLET PEG SCH ×2 (09:56→20:52)
[2020-04-25] MEDS: INSULIN GLARGINE 100 UNIT/ML SUBCUT SCH (09:57)
[2020-04-25] MEDS: INSULIN LISPRO 100 UNIT/ML SUBCUT SCH ×2 (09:57→21:01)
[2020-04-25] MEDS: ATROPINE 1 % OPH SOLN 5 ML BOTTLE BOTH EYES SCH ×4 (09:58→20:51)
[2020-04-25] MEDS: SODIUM CHLORIDE 1 GM TABLET PER TUBE SCH ×4 (09:58→20:52)
[2020-04-25] MEDS: OMEPRAZOLE ODT 20 MG TABLET PEG SCH (09:58)
[2020-04-25] MEDS: METOPROLOL TARTRATE 25 MG TABLET PO SCH (09:58)
[2020-04-25] MEDS: ENOXAPARIN 40 MG/0.4 ML SYRINGE SUBCUT SCH (10:01)
[2020-04-26] MEDS: levETIRAcetam LIQUID 100 MG/ML 30 ML/BOTTLE PEG SCH ×3 (01:32→18:29)
[2020-04-26] MEDS: ALBUTEROL/IPRATROPIUM 3 ML NEB RESP TX SCH ×5 (03:13→18:51)
[2020-04-26] MEDS: ENOXAPARIN 40 MG/0.4 ML SYRINGE SUBCUT SCH (11:05)
[2020-04-26] MEDS: INSULIN GLARGINE 100 UNIT/ML SUBCUT SCH (11:05)
[2020-04-26] MEDS: SODIUM CHLORIDE 1 GM TABLET PER TUBE SCH ×4 (11:06→20:26)
[2020-04-26] MEDS: METOPROLOL TARTRATE 25 MG TABLET PO SCH (11:06)
[2020-04-26] MEDS: BRIMONIDINE/TIMOLOL OPH SOLN 5 ML BOTTLE BOTH EYES SCH ×2 (11:08→20:26)
[2020-04-26] MEDS: BRIMONIDINE 0.15% OPH SOLN 1 DROP/DROPS BOTTLE BOTH EYES SCH ×3 (11:09→20:26)
[2020-04-26] MEDS: MUPIROCIN 2% OINT 22 GM TUBE TOP SCH ×2 (11:09→20:26)
[2020-04-26] MEDS: ATROPINE 1 % OPH SOLN 5 ML BOTTLE BOTH EYES SCH ×4 (11:09→20:27)
[2020-04-26] MEDS: INSULIN LISPRO 100 UNIT/ML SUBCUT SCH ×2 (11:12→20:26)
[2020-04-26] MEDS: OMEPRAZOLE ODT 20 MG TABLET PEG SCH (11:17)
[2020-04-26] MEDS: acetaZOLAMIDE 250 MG TABLET PEG SCH ×2 (11:17→20:26)
[2020-04-26] MEDS ORDERED: ALBUTEROL/IPRATROPIUM 3 ML NEB RESP TX ONE ×3 (12:44→18:10)
[2020-04-27] MEDS: ALBUTEROL/IPRATROPIUM 3 ML NEB RESP TX SCH ×6 (00:30→19:12)
[2020-04-27] MEDS: levETIRAcetam LIQUID 100 MG/ML 30 ML/BOTTLE PEG SCH ×3 (02:32→18:13)
[2020-04-27] MEDS: INSULIN GLARGINE 100 UNIT/ML SUBCUT SCH (09:54)
[2020-04-27] MEDS: ENOXAPARIN 40 MG/0.4 ML SYRINGE SUBCUT SCH (09:55)
[2020-04-27] MEDS: METOPROLOL TARTRATE 25 MG TABLET PO SCH (09:56)
[2020-04-27] MEDS: acetaZOLAMIDE 250 MG TABLET PEG SCH ×2 (09:56→20:17)
[2020-04-27] MEDS: SODIUM CHLORIDE 1 GM TABLET PER TUBE SCH ×4 (09:56→20:17)
[2020-04-27] MEDS: OMEPRAZOLE ODT 20 MG TABLET PEG SCH (09:56)
[2020-04-27] MEDS: BRIMONIDINE/TIMOLOL OPH SOLN 5 ML BOTTLE BOTH EYES SCH ×2 (10:03→20:18)
[2020-04-27] MEDS: BRIMONIDINE 0.15% OPH SOLN 1 DROP/DROPS BOTTLE BOTH EYES SCH ×3 (10:03→20:18)
[2020-04-27] MEDS: ATROPINE 1 % OPH SOLN 5 ML BOTTLE BOTH EYES SCH ×4 (10:03→20:18)
[2020-04-27] MEDS: MUPIROCIN 2% OINT 22 GM TUBE TOP SCH ×2 (10:04→20:18)
[2020-04-27] MEDS: INSULIN LISPRO 100 UNIT/ML SUBCUT SCH ×2 (10:06→20:18)
[2020-04-28] MEDS: ALBUTEROL/IPRATROPIUM 3 ML NEB RESP TX SCH ×7 (00:55→22:56)
[2020-04-28] MEDS: levETIRAcetam LIQUID 100 MG/ML 30 ML/BOTTLE PEG SCH ×3 (01:36→17:56)
[2020-04-28] MEDS: INSULIN GLARGINE 100 UNIT/ML SUBCUT SCH (10:40)
[2020-04-28] MEDS: SCOPOLAMINE 1.5 MG PATCH TRANSDERM SCH (10:40)
[2020-04-28] MEDS: OMEPRAZOLE ODT 20 MG TABLET PEG SCH (10:41)
[2020-04-28] MEDS: ENOXAPARIN 40 MG/0.4 ML SYRINGE SUBCUT SCH (10:41)
[2020-04-28] MEDS: METOPROLOL TARTRATE 25 MG TABLET PO SCH (10:41)
[2020-04-28] MEDS: SODIUM CHLORIDE 1 GM TABLET PER TUBE SCH ×4 (10:41→20:23)
[2020-04-28] MEDS: acetaZOLAMIDE 250 MG TABLET PEG SCH ×2 (10:41→20:22)
[2020-04-28] MEDS: BRIMONIDINE 0.15% OPH SOLN 1 DROP/DROPS BOTTLE BOTH EYES SCH ×3 (10:42→20:26)
[2020-04-28] MEDS: BRIMONIDINE/TIMOLOL OPH SOLN 5 ML BOTTLE BOTH EYES SCH ×2 (10:42→20:26)
[2020-04-28] MEDS: ATROPINE 1 % OPH SOLN 5 ML BOTTLE BOTH EYES SCH ×4 (10:42→20:26)
[2020-04-28] MEDS: INSULIN LISPRO 100 UNIT/ML SUBCUT SCH ×2 (10:42→20:26)
[2020-04-28] MEDS: MUPIROCIN 2% OINT 22 GM TUBE TOP SCH ×2 (10:43→20:26)
[2020-04-28] MEDS ORDERED: ALBUTEROL/IPRATROPIUM 3 ML NEB RESP TX ONE ×3 (12:53→22:48)
[2020-04-29] MEDS: levETIRAcetam LIQUID 100 MG/ML 30 ML/BOTTLE PEG SCH ×3 (02:07→17:12)
[2020-04-29] MEDS: ALBUTEROL/IPRATROPIUM 3 ML NEB RESP TX SCH ×6 (04:44→23:42)
[2020-04-29] MEDS ORDERED: ALBUTEROL/IPRATROPIUM 3 ML NEB RESP TX ONE (07:16)
[2020-04-29] MEDS: BRIMONIDINE/TIMOLOL OPH SOLN 5 ML BOTTLE BOTH EYES SCH ×2 (09:43→20:48)
[2020-04-29] MEDS: acetaZOLAMIDE 250 MG TABLET PEG SCH ×2 (09:45→20:47)
[2020-04-29] MEDS: SODIUM CHLORIDE 1 GM TABLET PER TUBE SCH ×4 (09:46→20:47)
[2020-04-29] MEDS: METOPROLOL TARTRATE 25 MG TABLET PO SCH (09:47)
[2020-04-29] MEDS: OMEPRAZOLE ODT 20 MG TABLET PEG SCH (09:47)
[2020-04-29] MEDS: BRIMONIDINE 0.15% OPH SOLN 1 DROP/DROPS BOTTLE BOTH EYES SCH ×3 (09:56→20:47)
[2020-04-29] MEDS: INSULIN LISPRO 100 UNIT/ML SUBCUT SCH ×2 (10:06→17:06)
[2020-04-29] MEDS: ATROPINE 1 % OPH SOLN 5 ML BOTTLE BOTH EYES SCH ×4 (10:07→20:48)
[2020-04-29] MEDS: MUPIROCIN 2% OINT 22 GM TUBE TOP SCH ×2 (10:07→20:48)
[2020-04-29] MEDS: ENOXAPARIN 40 MG/0.4 ML SYRINGE SUBCUT SCH (10:08)
[2020-04-29] MEDS: INSULIN GLARGINE 100 UNIT/ML SUBCUT SCH (10:24)
[2020-04-29] MEDS: LEVOFLOXACIN INJ 750 MG in PREMIX 1 EACH IV SCH (12:35)
[2020-04-30] MEDS: INSULIN LISPRO 100 UNIT/ML SUBCUT SCH ×4 (00:53→17:52)
[2020-04-30] MEDS: levETIRAcetam LIQUID 100 MG/ML 30 ML/BOTTLE PEG SCH ×3 (02:25→17:52)
[2020-04-30] MEDS: ALBUTEROL/IPRATROPIUM 3 ML NEB RESP TX SCH ×6 (03:15→23:55)
[2020-04-30 05:47] LABS: Basophils # 0.1 10*3/uL (0.0-0.2); Basophils % 0.5 % (0.0-0.8); Eosinophils # 0.2 10*3/uL (0.0-0.87); Eosinophils % 2.1 % (0.00-10.9); Hematocrit 26.1 VOL% (35.7-47.0); Hemoglobin 7.8 GM/DL (12.0-16.0); Immature Granulocytes % 3.9 %; Immature Granulocytes Absolute 0.43 #; Lymphocytes # 1.7 10*3/uL (1.4-4.0); Lymphocytes % 15.8 % (21.3-54.2); Mean Corpuscular HGB Conc 29.9 GM/DL (32-36); Mean Corpuscular Volume 86.4 FL (87-102); Mean Platelet Volume 12.8 FL (9.6-12.0); Monocytes % 9.3 % (1.7-12.7); NRBC # 0.03 10*3/uL; Neutrophils % 68.4 % (38.7-73.9); Platelet Count 226 T/CUMM (130-400); Red Blood Count 3.02 MC/CUMM (3.8-5.5); Red Cell Distribution Width 14.7 % (9.3-17.3)
[2020-04-30 06:03] LABS: Calcium 8.8 MG/DL (8.5-10.1); Osmolality,Calculated 278.5 MOS/KG (273-304)
[2020-04-30] MEDS: INSULIN GLARGINE 100 UNIT/ML SUBCUT SCH (09:12)
[2020-04-30] MEDS: ENOXAPARIN 40 MG/0.4 ML SYRINGE SUBCUT SCH (09:13)
[2020-04-30] MEDS: SODIUM CHLORIDE 1 GM TABLET PER TUBE SCH ×4 (09:14→21:05)
[2020-04-30] MEDS: acetaZOLAMIDE 250 MG TABLET PEG SCH ×2 (09:14→21:05)
[2020-04-30] MEDS: METOPROLOL TARTRATE 25 MG TABLET PO SCH (09:15)
[2020-04-30] MEDS: OMEPRAZOLE ODT 20 MG TABLET PEG SCH (09:15)
[2020-04-30] MEDS: BRIMONIDINE 0.15% OPH SOLN 1 DROP/DROPS BOTTLE BOTH EYES SCH (09:29)
[2020-04-30] MEDS: MUPIROCIN 2% OINT 22 GM TUBE TOP SCH ×2 (09:29→21:04)
[2020-04-30] MEDS: ATROPINE 1 % OPH SOLN 5 ML BOTTLE BOTH EYES SCH ×4 (09:29→21:04)
[2020-04-30] MEDS: BRIMONIDINE/TIMOLOL OPH SOLN 5 ML BOTTLE BOTH EYES SCH ×2 (09:29→21:05)
[2020-04-30] MEDS ORDERED: MINERAL OIL/PETROLATUM OPH OINT 3.5 GM TUBE BOTH EYES PRN (10:24)
[2020-04-30] MEDS ORDERED: INSULIN GLARGINE 100 UNIT/ML SUBCUT SCH (10:27)
[2020-04-30 10:28] LABS: Calcium 8.9 MG/DL (8.5-10.1); Osmolality,Calculated 277.5 MOS/KG (273-304)
[2020-04-30 10:48] LABS: % Iron Saturation 8.8 % (18-50); Ferritin 97.1 ng/ml (8-252)
[2020-04-30] MEDS: LEVOFLOXACIN INJ 750 MG in PREMIX 1 EACH IV SCH (12:32)
[2020-04-30] MEDS ORDERED: SODIUM CHLORIDE 1 GM TABLET PO ONE (14:00)
[2020-04-30] MEDS: FERROUS SULFATE 300 MG/5 ML UDCUP PO SCH (21:05)
[2020-05-01] MEDS: INSULIN LISPRO 100 UNIT/ML SUBCUT SCH ×4 (00:22→19:03)
[2020-05-01] MEDS: levETIRAcetam LIQUID 100 MG/ML 30 ML/BOTTLE PEG SCH ×3 (02:51→17:31)
[2020-05-01] MEDS: ALBUTEROL/IPRATROPIUM 3 ML NEB RESP TX SCH ×6 (04:10→23:47)
[2020-05-01] MEDS: OMEPRAZOLE ODT 20 MG TABLET PEG SCH (09:21)
[2020-05-01] MEDS: SCOPOLAMINE 1.5 MG PATCH TRANSDERM SCH (09:22)
[2020-05-01] MEDS: FERROUS SULFATE 300 MG/5 ML UDCUP PO SCH ×2 (09:22→20:36)
[2020-05-01] MEDS: INSULIN GLARGINE 100 UNIT/ML SUBCUT SCH (09:23)
[2020-05-01] MEDS: ATROPINE 1 % OPH SOLN 5 ML BOTTLE BOTH EYES SCH ×4 (09:25→20:34)
[2020-05-01] MEDS: BRIMONIDINE/TIMOLOL OPH SOLN 5 ML BOTTLE BOTH EYES SCH ×2 (09:25→20:32)
[2020-05-01] MEDS: MUPIROCIN 2% OINT 22 GM TUBE TOP SCH ×2 (09:26→20:31)
[2020-05-01] MEDS: ENOXAPARIN 40 MG/0.4 ML SYRINGE SUBCUT SCH (09:27)
[2020-05-01] MEDS: SODIUM CHLORIDE 1 GM TABLET PER TUBE SCH ×4 (09:40→20:31)
[2020-05-01] MEDS: LEVOFLOXACIN INJ 750 MG in PREMIX 1 EACH IV SCH (12:55)
[2020-05-02] MEDS: INSULIN LISPRO 100 UNIT/ML SUBCUT SCH ×4 (00:57→18:42)
[2020-05-02] MEDS: ALBUTEROL/IPRATROPIUM 3 ML NEB RESP TX SCH ×5 (02:00→19:13)
[2020-05-02] MEDS: levETIRAcetam LIQUID 100 MG/ML 30 ML/BOTTLE PEG SCH ×3 (02:14→18:42)
[2020-05-02 07:09] LABS: Basophils % 0.5 % (0.0-0.8); Eosinophils # 0.3 10*3/uL (0.0-0.87); Eosinophils % 3.9 % (0.00-10.9); Hemoglobin 8.1 GM/DL (12.0-16.0); Lymphocytes # 1.6 10*3/uL (1.4-4.0); Lymphocytes % 20.6 % (21.3-54.2); Mean Corpuscular Volume 85.7 FL (87-102); Mean Platelet Volume 12.7 FL (9.6-12.0); Monocytes % 10.2 % (1.7-12.7); Neutrophils % 59.8 % (38.7-73.9); Platelet Count 246 T/CUMM (130-400); Red Blood Count 3.15 MC/CUMM (3.8-5.5); Red Cell Distribution Width 14.9 % (9.3-17.3)
[2020-05-02 07:40] LABS: Calcium 9.1 MG/DL (8.5-10.1); Osmolality,Calculated 278.5 MOS/KG (273-304)
[2020-05-02] MEDS: ENOXAPARIN 40 MG/0.4 ML SYRINGE SUBCUT SCH (09:55)
[2020-05-02] MEDS: FERROUS SULFATE 300 MG/5 ML UDCUP PO SCH ×2 (09:55→20:05)
[2020-05-02] MEDS: SODIUM CHLORIDE 1 GM TABLET PER TUBE SCH ×4 (09:56→20:05)
[2020-05-02] MEDS: OMEPRAZOLE ODT 20 MG TABLET PEG SCH (09:56)
[2020-05-02] MEDS: BRIMONIDINE/TIMOLOL OPH SOLN 5 ML BOTTLE BOTH EYES SCH ×2 (09:56→20:04)
[2020-05-02] MEDS: MUPIROCIN 2% OINT 22 GM TUBE TOP SCH ×2 (09:56→20:04)
[2020-05-02] MEDS: METOPROLOL TARTRATE 25 MG TABLET PO SCH (09:58)
[2020-05-02] MEDS: ATROPINE 1 % OPH SOLN 5 ML BOTTLE BOTH EYES SCH ×3 (09:58→20:04)
[2020-05-02] MEDS: INSULIN GLARGINE 100 UNIT/ML SUBCUT SCH (09:58)
[2020-05-02] MEDS ORDERED: SODIUM CHLORIDE 0.9% 500 ML IV ONE (11:35)
[2020-05-02] MEDS ORDERED: SODIUM CHLORIDE 0.9% 1,000 ML IV ONE (14:14)
[2020-05-02] MEDS ORDERED: DIGOXIN 0.5 MG/2 ML AMP IV ONE ×2 (14:26→18:22)
[2020-05-02 14:48] LABS: Basophils % 0.4 % (0.0-0.8); Eosinophils # 0.4 10*3/uL (0.0-0.87); Eosinophils % 3.4 % (0.00-10.9); Hematocrit 29.1 VOL% (35.7-47.0); Hemoglobin 8.8 GM/DL (12.0-16.0); Immature Granulocytes Absolute 0.33 #; Lymphocytes # 2.5 10*3/uL (1.4-4.0); Mean Corpuscular HGB Conc 30.2 GM/DL (32-36); Mean Corpuscular Volume 87.1 FL (87-102); Mean Platelet Volume 12.5 FL (9.6-12.0); NRBC # 0.02 10*3/uL; Neutrophils % 60.2 % (38.7-73.9); Platelet Count 288 T/CUMM (130-400); Red Blood Count 3.34 MC/CUMM (3.8-5.5); White Blood Count 10.9 T/CUMM (4-12)
[2020-05-02 15:14] LABS: Calcium 9.2 MG/DL (8.5-10.1); Osmolality,Calculated 284.1 MOS/KG (273-304)
[2020-05-02 16:50] LABS: Bilirubin,Urine Negative (Negative); Blood, Urine Negative (Negative); Glucose,Urine (UA) Negative (Negative); Ketones,Urine Negative (Negative); Mucus,Urine Occasional /LPF (Occasional); Nitrite,Urine Negative (Negative); Protein,Urine Negative; RBC,Urine 1 /HPF (0-4); Squamous Epithelial Cell,Urine Occasional /HPF (0-10); Urine Appearance CLEAR (Clear); Urine Color Yellow (Yellow); Urine Specific Gravity 1.012 (1.001-1.035); Urine Urobilinogen < 2.0 EU/DL (0.2-1.0); WBC,Urine 2 /HPF (0-6)
[2020-05-02] MEDS: MINERAL OIL/PETROLATUM OPH OINT 3.5 GM TUBE BOTH EYES SCH (20:04)
[2020-05-02] MEDS: DIGOXIN 0.5 MG/2 ML AMP IV ONE ×2 (20:05→21:14)
[2020-05-03] MEDS: ALBUTEROL/IPRATROPIUM 3 ML NEB RESP TX SCH ×2 (00:21→03:21)
[2020-05-03] MEDS: INSULIN LISPRO 100 UNIT/ML SUBCUT SCH ×4 (00:51→18:20)
[2020-05-03] MEDS: levETIRAcetam LIQUID 100 MG/ML 30 ML/BOTTLE PEG SCH ×3 (02:34→17:12)
[2020-05-03] MEDS: INSULIN GLARGINE 100 UNIT/ML SUBCUT SCH (09:50)
[2020-05-03] MEDS: ATROPINE 1 % OPH SOLN 5 ML BOTTLE BOTH EYES SCH ×2 (09:53→21:04)
[2020-05-03] MEDS: BRIMONIDINE/TIMOLOL OPH SOLN 5 ML BOTTLE BOTH EYES SCH ×2 (09:53→21:04)
[2020-05-03] MEDS: LEVOFLOXACIN 750 MG TABLET PER TUBE SCH (09:54)
[2020-05-03] MEDS: SODIUM CHLORIDE 1 GM TABLET PER TUBE SCH ×4 (09:54→21:03)
[2020-05-03] MEDS: ENOXAPARIN 40 MG/0.4 ML SYRINGE SUBCUT SCH (09:54)
[2020-05-03] MEDS: OMEPRAZOLE ODT 20 MG TABLET PEG SCH (09:54)
[2020-05-03] MEDS: FERROUS SULFATE 300 MG/5 ML UDCUP PO SCH ×2 (09:54→21:02)
[2020-05-03] MEDS: MUPIROCIN 2% OINT 22 GM TUBE TOP SCH ×2 (09:55→21:04)
[2020-05-03] MEDS: METOPROLOL TARTRATE 25 MG TABLET PO SCH ×2 (10:15→21:02)
[2020-05-03] MEDS: MINERAL OIL/PETROLATUM OPH OINT 3.5 GM TUBE BOTH EYES SCH ×2 (10:15→21:03)
[2020-05-03] MEDS ORDERED: ALBUTEROL/IPRATROPIUM 3 ML NEB RESP TX PRN (10:52)
[2020-05-04] MEDS: levETIRAcetam LIQUID 100 MG/ML 30 ML/BOTTLE PEG SCH ×3 (01:50→17:39)
[2020-05-04] MEDS: INSULIN LISPRO 100 UNIT/ML SUBCUT SCH ×4 (03:50→19:17)
[2020-05-04] MEDS: INSULIN GLARGINE 100 UNIT/ML SUBCUT SCH (09:17)
[2020-05-04] MEDS: BRIMONIDINE/TIMOLOL OPH SOLN 5 ML BOTTLE BOTH EYES SCH ×2 (09:18→21:19)
[2020-05-04] MEDS: MUPIROCIN 2% OINT 22 GM TUBE TOP SCH ×2 (09:18→21:19)
[2020-05-04] MEDS: ATROPINE 1 % OPH SOLN 5 ML BOTTLE BOTH EYES SCH ×2 (09:19→21:20)
[2020-05-04] MEDS: ENOXAPARIN 40 MG/0.4 ML SYRINGE SUBCUT SCH (09:19)
[2020-05-04] MEDS: SODIUM CHLORIDE 1 GM TABLET PER TUBE SCH ×4 (09:20→21:18)
[2020-05-04] MEDS: FERROUS SULFATE 300 MG/5 ML UDCUP PO SCH ×2 (09:20→21:18)
[2020-05-04] MEDS: LEVOFLOXACIN 750 MG TABLET PER TUBE SCH (09:20)
[2020-05-04] MEDS: OMEPRAZOLE ODT 20 MG TABLET PEG SCH (09:20)
[2020-05-04] MEDS: MINERAL OIL/PETROLATUM OPH OINT 3.5 GM TUBE BOTH EYES SCH ×2 (09:21→21:21)
[2020-05-04] MEDS: METOPROLOL TARTRATE 25 MG TABLET PO SCH ×2 (09:25→21:18)
[2020-05-04] MEDS: PIPERACILLIN/TAZOBACTAM 3,375 MG in SODIUM CHLORIDE 0.9% 100 ML IV SCH ×2 (13:59→21:57)
[2020-05-05] MEDS: INSULIN LISPRO 100 UNIT/ML SUBCUT SCH ×4 (01:08→17:53)
[2020-05-05] MEDS: levETIRAcetam LIQUID 100 MG/ML 30 ML/BOTTLE PEG SCH ×3 (02:06→17:17)
[2020-05-05] MEDS: PIPERACILLIN/TAZOBACTAM 3,375 MG in SODIUM CHLORIDE 0.9% 100 ML IV SCH ×3 (05:40→22:04)
[2020-05-05 06:03] LABS: Basophils % 0.5 % (0.0-0.8); Eosinophils # 0.3 10*3/uL (0.0-0.87); Hematocrit 31.6 VOL% (35.7-47.0); Hemoglobin 9.3 GM/DL (12.0-16.0); Immature Granulocytes % 1.3 %; Immature Granulocytes Absolute 0.11 #; Lymphocytes # 1.8 10*3/uL (1.4-4.0); Lymphocytes % 20.9 % (21.3-54.2); Mean Corpuscular HGB Conc 29.4 GM/DL (32-36); Mean Platelet Volume 12.9 FL (9.6-12.0); Monocytes % 13.6 % (1.7-12.7); Neutrophils % 60.7 % (38.7-73.9); Platelet Count 261 T/CUMM (130-400); Red Blood Count 3.59 MC/CUMM (3.8-5.5); Red Cell Distribution Width 14.9 % (9.3-17.3); White Blood Count 8.6 T/CUMM (4-12)
[2020-05-05 06:35] LABS: Osmolality,Calculated 277.4 MOS/KG (273-304)
[2020-05-05] MEDS: INSULIN GLARGINE 100 UNIT/ML SUBCUT SCH (09:00)
[2020-05-05] MEDS: MUPIROCIN 2% OINT 22 GM TUBE TOP SCH ×2 (09:01→20:27)
[2020-05-05] MEDS: ATROPINE 1 % OPH SOLN 5 ML BOTTLE BOTH EYES SCH ×2 (09:01→20:27)
[2020-05-05] MEDS: BRIMONIDINE/TIMOLOL OPH SOLN 5 ML BOTTLE BOTH EYES SCH ×2 (09:01→20:27)
[2020-05-05] MEDS: SODIUM CHLORIDE 1 GM TABLET PER TUBE SCH ×4 (09:02→20:28)
[2020-05-05] MEDS: METOPROLOL TARTRATE 25 MG TABLET PO SCH ×2 (09:03→20:27)
[2020-05-05] MEDS: FERROUS SULFATE 300 MG/5 ML UDCUP PO SCH ×2 (09:03→20:37)
[2020-05-05] MEDS: OMEPRAZOLE ODT 20 MG TABLET PEG SCH (09:03)
[2020-05-05] MEDS: MINERAL OIL/PETROLATUM OPH OINT 3.5 GM TUBE BOTH EYES SCH ×2 (09:04→20:28)
[2020-05-05] MEDS: ENOXAPARIN 40 MG/0.4 ML SYRINGE SUBCUT SCH (09:07)
[2020-05-06] MEDS: INSULIN LISPRO 100 UNIT/ML SUBCUT SCH ×4 (01:27→18:26)
[2020-05-06] MEDS: levETIRAcetam LIQUID 100 MG/ML 30 ML/BOTTLE PEG SCH ×3 (01:50→17:55)
[2020-05-06] MEDS: PIPERACILLIN/TAZOBACTAM 3,375 MG in SODIUM CHLORIDE 0.9% 100 ML IV SCH ×3 (05:53→21:18)
[2020-05-06] MEDS: INSULIN GLARGINE 100 UNIT/ML SUBCUT SCH (08:37)
[2020-05-06] MEDS: METOPROLOL TARTRATE 25 MG TABLET PO SCH ×2 (08:38→21:03)
[2020-05-06] MEDS: SODIUM CHLORIDE 1 GM TABLET PER TUBE SCH ×4 (08:38→21:03)
[2020-05-06] MEDS: FERROUS SULFATE 300 MG/5 ML UDCUP PO SCH ×2 (08:38→21:03)
[2020-05-06] MEDS: OMEPRAZOLE ODT 20 MG TABLET PEG SCH (08:39)
[2020-05-06] MEDS: BRIMONIDINE/TIMOLOL OPH SOLN 5 ML BOTTLE BOTH EYES SCH ×2 (08:39→21:04)
[2020-05-06] MEDS: ATROPINE 1 % OPH SOLN 5 ML BOTTLE BOTH EYES SCH ×2 (08:39→21:03)
[2020-05-06] MEDS: MINERAL OIL/PETROLATUM OPH OINT 3.5 GM TUBE BOTH EYES SCH ×2 (08:39→21:04)
[2020-05-06] MEDS: MUPIROCIN 2% OINT 22 GM TUBE TOP SCH ×2 (08:39→21:04)
[2020-05-06] MEDS: ENOXAPARIN 40 MG/0.4 ML SYRINGE SUBCUT SCH (09:38)
[2020-05-06 11:20] LABS: Calcium 9.4 MG/DL (8.5-10.1); Osmolality,Calculated 276.5 MOS/KG (273-304)
[2020-05-07] MEDS: INSULIN LISPRO 100 UNIT/ML SUBCUT SCH ×4 (01:15→18:15)
[2020-05-07] MEDS: levETIRAcetam LIQUID 100 MG/ML 30 ML/BOTTLE PEG SCH ×3 (01:59→18:16)
[2020-05-07] MEDS: PIPERACILLIN/TAZOBACTAM 3,375 MG in SODIUM CHLORIDE 0.9% 100 ML IV SCH ×3 (06:04→21:59)
[2020-05-07] MEDS: FERROUS SULFATE 300 MG/5 ML UDCUP PO SCH ×2 (09:32→20:15)
[2020-05-07] MEDS: INSULIN GLARGINE 100 UNIT/ML SUBCUT SCH (09:32)
[2020-05-07] MEDS: METOPROLOL TARTRATE 25 MG TABLET PO SCH ×2 (09:33→20:15)
[2020-05-07] MEDS: SODIUM CHLORIDE 1 GM TABLET PER TUBE SCH ×4 (09:33→20:15)
[2020-05-07] MEDS: OMEPRAZOLE ODT 20 MG TABLET PEG SCH (09:33)
[2020-05-07] MEDS: ENOXAPARIN 40 MG/0.4 ML SYRINGE SUBCUT SCH (09:34)
[2020-05-07] MEDS: MUPIROCIN 2% OINT 22 GM TUBE TOP SCH ×2 (09:36→20:15)
[2020-05-07] MEDS: ATROPINE 1 % OPH SOLN 5 ML BOTTLE BOTH EYES SCH ×2 (09:36→20:16)
[2020-05-07] MEDS: BRIMONIDINE/TIMOLOL OPH SOLN 5 ML BOTTLE BOTH EYES SCH ×2 (09:36→20:15)
[2020-05-07] MEDS: MINERAL OIL/PETROLATUM OPH OINT 3.5 GM TUBE BOTH EYES SCH ×2 (09:37→20:15)
[2020-05-08] MEDS: INSULIN LISPRO 100 UNIT/ML SUBCUT SCH ×4 (00:38→17:32)
[2020-05-08] MEDS: levETIRAcetam LIQUID 100 MG/ML 30 ML/BOTTLE PEG SCH ×3 (02:01→17:33)
[2020-05-08] MEDS: PIPERACILLIN/TAZOBACTAM 3,375 MG in SODIUM CHLORIDE 0.9% 100 ML IV SCH ×3 (07:11→21:20)
[2020-05-08] MEDS: FERROUS SULFATE 300 MG/5 ML UDCUP PO SCH ×2 (09:00→20:37)
[2020-05-08] MEDS: BRIMONIDINE/TIMOLOL OPH SOLN 5 ML BOTTLE BOTH EYES SCH ×2 (09:19→20:37)
[2020-05-08] MEDS: MINERAL OIL/PETROLATUM OPH OINT 3.5 GM TUBE BOTH EYES SCH ×2 (09:19→20:37)
[2020-05-08] MEDS: ATROPINE 1 % OPH SOLN 5 ML BOTTLE BOTH EYES SCH ×2 (09:19→20:37)
[2020-05-08] MEDS: MUPIROCIN 2% OINT 22 GM TUBE TOP SCH ×2 (09:20→20:37)
[2020-05-08] MEDS: INSULIN GLARGINE 100 UNIT/ML SUBCUT SCH (09:21)
[2020-05-08] MEDS: ENOXAPARIN 40 MG/0.4 ML SYRINGE SUBCUT SCH (09:22)
[2020-05-08] MEDS: SODIUM CHLORIDE 1 GM TABLET PER TUBE SCH ×4 (09:23→20:38)
[2020-05-08] MEDS: METOPROLOL TARTRATE 25 MG TABLET PO SCH ×2 (09:24→20:38)
[2020-05-08] MEDS: OMEPRAZOLE ODT 20 MG TABLET PEG SCH (09:24)
[2020-05-09] MEDS: levETIRAcetam LIQUID 100 MG/ML 30 ML/BOTTLE PEG SCH ×3 (02:15→17:33)
[2020-05-09] MEDS: INSULIN LISPRO 100 UNIT/ML SUBCUT SCH ×4 (02:36→18:12)
[2020-05-09] MEDS: PIPERACILLIN/TAZOBACTAM 3,375 MG in SODIUM CHLORIDE 0.9% 100 ML IV SCH ×3 (06:28→21:24)
[2020-05-09] MEDS: BRIMONIDINE/TIMOLOL OPH SOLN 5 ML BOTTLE BOTH EYES SCH ×2 (09:01→21:23)
[2020-05-09] MEDS: ATROPINE 1 % OPH SOLN 5 ML BOTTLE BOTH EYES SCH ×2 (09:01→21:21)
[2020-05-09] MEDS: MUPIROCIN 2% OINT 22 GM TUBE TOP SCH ×2 (09:02→21:21)
[2020-05-09] MEDS: INSULIN GLARGINE 100 UNIT/ML SUBCUT SCH (09:02)
[2020-05-09] MEDS: MINERAL OIL/PETROLATUM OPH OINT 3.5 GM TUBE BOTH EYES SCH ×2 (09:02→21:21)
[2020-05-09] MEDS: ENOXAPARIN 40 MG/0.4 ML SYRINGE SUBCUT SCH (09:03)
[2020-05-09] MEDS: FERROUS SULFATE 300 MG/5 ML UDCUP PO SCH ×2 (09:04→21:21)
[2020-05-09] MEDS: SODIUM CHLORIDE 1 GM TABLET PER TUBE SCH ×4 (09:05→21:23)
[2020-05-09] MEDS: OMEPRAZOLE ODT 20 MG TABLET PEG SCH (09:05)
[2020-05-09] MEDS: METOPROLOL TARTRATE 25 MG TABLET PO SCH ×2 (09:05→21:22)
[2020-05-10] MEDS: INSULIN LISPRO 100 UNIT/ML SUBCUT SCH ×5 (00:16→23:50)
[2020-05-10] MEDS: levETIRAcetam LIQUID 100 MG/ML 30 ML/BOTTLE PEG SCH ×3 (01:54→17:32)
[2020-05-10] MEDS: PIPERACILLIN/TAZOBACTAM 3,375 MG in SODIUM CHLORIDE 0.9% 100 ML IV SCH ×2 (05:08→14:33)
[2020-05-10] MEDS: MUPIROCIN 2% OINT 22 GM TUBE TOP SCH ×2 (08:39→21:00)
[2020-05-10] MEDS: BRIMONIDINE/TIMOLOL OPH SOLN 5 ML BOTTLE BOTH EYES SCH ×2 (08:39→21:00)
[2020-05-10] MEDS: FERROUS SULFATE 300 MG/5 ML UDCUP PO SCH ×2 (08:39→21:00)
[2020-05-10] MEDS: ATROPINE 1 % OPH SOLN 5 ML BOTTLE BOTH EYES SCH ×2 (08:39→21:01)
[2020-05-10] MEDS: INSULIN GLARGINE 100 UNIT/ML SUBCUT SCH (08:39)
[2020-05-10] MEDS: METOPROLOL TARTRATE 25 MG TABLET PO SCH ×2 (08:39→21:00)
[2020-05-10] MEDS: SODIUM CHLORIDE 1 GM TABLET PER TUBE SCH ×4 (08:40→21:00)
[2020-05-10] MEDS: MINERAL OIL/PETROLATUM OPH OINT 3.5 GM TUBE BOTH EYES SCH ×2 (08:40→21:00)
[2020-05-10] MEDS: OMEPRAZOLE ODT 20 MG TABLET PEG SCH (08:40)
[2020-05-10] MEDS: ENOXAPARIN 40 MG/0.4 ML SYRINGE SUBCUT SCH (11:22)
[2020-05-11] MEDS: levETIRAcetam LIQUID 100 MG/ML 30 ML/BOTTLE PEG SCH ×3 (02:27→17:25)
[2020-05-11] MEDS: INSULIN LISPRO 100 UNIT/ML SUBCUT SCH ×3 (06:54→18:26)
[2020-05-11] MEDS: BRIMONIDINE/TIMOLOL OPH SOLN 5 ML BOTTLE BOTH EYES SCH ×2 (08:33→20:29)
[2020-05-11] MEDS: FERROUS SULFATE 300 MG/5 ML UDCUP PO SCH ×2 (08:33→20:29)
[2020-05-11] MEDS: MUPIROCIN 2% OINT 22 GM TUBE TOP SCH ×2 (08:33→20:29)
[2020-05-11] MEDS: MINERAL OIL/PETROLATUM OPH OINT 3.5 GM TUBE BOTH EYES SCH ×2 (08:34→20:29)
[2020-05-11] MEDS: ATROPINE 1 % OPH SOLN 5 ML BOTTLE BOTH EYES SCH ×2 (08:34→20:30)
[2020-05-11] MEDS: INSULIN GLARGINE 100 UNIT/ML SUBCUT SCH (08:35)
[2020-05-11] MEDS: METOPROLOL TARTRATE 25 MG TABLET PO SCH ×2 (08:35→20:29)
[2020-05-11] MEDS: OMEPRAZOLE ODT 20 MG TABLET PEG SCH (08:35)
[2020-05-11] MEDS: SODIUM CHLORIDE 1 GM TABLET PER TUBE SCH ×4 (08:35→20:29)
[2020-05-11] MEDS: ENOXAPARIN 40 MG/0.4 ML SYRINGE SUBCUT SCH (11:27)
[2020-05-12] MEDS: levETIRAcetam LIQUID 100 MG/ML 30 ML/BOTTLE PEG SCH ×3 (01:54→17:10)
[2020-05-12] MEDS: INSULIN LISPRO 100 UNIT/ML SUBCUT SCH ×4 (01:54→17:10)
[2020-05-12] MEDS: FERROUS SULFATE 300 MG/5 ML UDCUP PO SCH ×2 (08:37→20:12)
[2020-05-12] MEDS: METOPROLOL TARTRATE 25 MG TABLET PO SCH ×2 (08:38→20:12)
[2020-05-12] MEDS: SODIUM CHLORIDE 1 GM TABLET PER TUBE SCH ×4 (08:38→20:12)
[2020-05-12] MEDS: INSULIN GLARGINE 100 UNIT/ML SUBCUT SCH (08:38)
[2020-05-12] MEDS: MUPIROCIN 2% OINT 22 GM TUBE TOP SCH ×2 (08:39→20:14)
[2020-05-12] MEDS: OMEPRAZOLE ODT 20 MG TABLET PEG SCH (08:39)
[2020-05-12] MEDS: BRIMONIDINE/TIMOLOL OPH SOLN 5 ML BOTTLE BOTH EYES SCH ×2 (08:39→20:15)
[2020-05-12] MEDS: ATROPINE 1 % OPH SOLN 5 ML BOTTLE BOTH EYES SCH ×2 (08:39→20:15)
[2020-05-12] MEDS: MINERAL OIL/PETROLATUM OPH OINT 3.5 GM TUBE BOTH EYES SCH ×2 (08:39→20:15)
[2020-05-12] MEDS: ENOXAPARIN 40 MG/0.4 ML SYRINGE SUBCUT SCH (09:02)
[2020-05-13] MEDS: levETIRAcetam LIQUID 100 MG/ML 30 ML/BOTTLE PEG SCH ×3 (02:25→19:12)
[2020-05-13] MEDS: INSULIN LISPRO 100 UNIT/ML SUBCUT SCH ×4 (03:26→18:31)
[2020-05-13] MEDS: ENOXAPARIN 40 MG/0.4 ML SYRINGE SUBCUT SCH (09:32)
[2020-05-13] MEDS: OMEPRAZOLE ODT 20 MG TABLET PEG SCH (09:32)
[2020-05-13] MEDS: FERROUS SULFATE 300 MG/5 ML UDCUP PO SCH ×2 (09:32→20:43)
[2020-05-13] MEDS: SODIUM CHLORIDE 1 GM TABLET PER TUBE SCH ×4 (09:32→20:43)
[2020-05-13] MEDS: METOPROLOL TARTRATE 25 MG TABLET PO SCH ×2 (09:32→20:43)
[2020-05-13] MEDS: INSULIN GLARGINE 100 UNIT/ML SUBCUT SCH (09:32)
[2020-05-13] MEDS: MINERAL OIL/PETROLATUM OPH OINT 3.5 GM TUBE BOTH EYES SCH ×2 (09:33→20:44)
[2020-05-13] MEDS: MUPIROCIN 2% OINT 22 GM TUBE TOP SCH ×2 (09:33→20:44)
[2020-05-13] MEDS: ATROPINE 1 % OPH SOLN 5 ML BOTTLE BOTH EYES SCH ×2 (09:34→20:44)
[2020-05-13] MEDS: BRIMONIDINE/TIMOLOL OPH SOLN 5 ML BOTTLE BOTH EYES SCH ×2 (09:34→20:44)
[2020-05-14] MEDS: INSULIN LISPRO 100 UNIT/ML SUBCUT SCH ×4 (00:21→18:46)
[2020-05-14] MEDS: levETIRAcetam LIQUID 100 MG/ML 30 ML/BOTTLE PEG SCH ×3 (02:38→17:04)
[2020-05-14 06:39] LABS: Basophils % 0.4 % (0.0-0.8); Eosinophils # 0.2 10*3/uL (0.0-0.87); Eosinophils % 3.1 % (0.00-10.9); Hematocrit 32.2 VOL% (35.7-47.0); Hemoglobin 9.8 GM/DL (12.0-16.0); Immature Granulocytes % 0.7 %; Immature Granulocytes Absolute 0.05 #; Lymphocytes # 1.4 10*3/uL (1.4-4.0); Lymphocytes % 19.5 % (21.3-54.2); Mean Corpuscular HGB Conc 30.4 GM/DL (32-36); Mean Corpuscular Volume 85.4 FL (87-102); Mean Platelet Volume 12.9 FL (9.6-12.0); Monocytes % 12.4 % (1.7-12.7); Neutrophils % 63.9 % (38.7-73.9); Platelet Count 153 T/CUMM (130-400); Red Blood Count 3.77 MC/CUMM (3.8-5.5); Red Cell Distribution Width 15.5 % (9.3-17.3); White Blood Count 7.4 T/CUMM (4-12)
[2020-05-14 07:19] LABS: Hypochromasia 1+; Microcytosis 1+; Ovalocytes Slight; Platelet Estimate Adequate
[2020-05-14] MEDS: ATROPINE 1 % OPH SOLN 5 ML BOTTLE BOTH EYES SCH ×2 (08:38→21:17)
[2020-05-14] MEDS: BRIMONIDINE/TIMOLOL OPH SOLN 5 ML BOTTLE BOTH EYES SCH ×2 (08:39→21:17)
[2020-05-14] MEDS: MUPIROCIN 2% OINT 22 GM TUBE TOP SCH ×2 (08:40→21:16)
[2020-05-14] MEDS: MINERAL OIL/PETROLATUM OPH OINT 3.5 GM TUBE BOTH EYES SCH ×2 (08:41→21:17)
[2020-05-14] MEDS: SODIUM CHLORIDE 1 GM TABLET PER TUBE SCH ×4 (09:50→21:16)
[2020-05-14] MEDS: FERROUS SULFATE 300 MG/5 ML UDCUP PO SCH ×2 (09:50→21:16)
[2020-05-14] MEDS: OMEPRAZOLE ODT 20 MG TABLET PEG SCH (09:51)
[2020-05-14] MEDS: METOPROLOL TARTRATE 25 MG TABLET PO SCH ×2 (09:52→21:16)
[2020-05-14] MEDS: INSULIN GLARGINE 100 UNIT/ML SUBCUT SCH (09:52)
[2020-05-14] MEDS: ENOXAPARIN 40 MG/0.4 ML SYRINGE SUBCUT SCH (09:52)
[2020-05-14 13:20] LABS: Calcium 9.3 MG/DL (8.5-10.1)
[2020-05-15] MEDS: INSULIN LISPRO 100 UNIT/ML SUBCUT SCH ×5 (01:14→23:30)
[2020-05-15] MEDS: levETIRAcetam LIQUID 100 MG/ML 30 ML/BOTTLE PEG SCH ×3 (01:16→17:16)
[2020-05-15 06:33] LABS: Calcium 9.2 MG/DL (8.5-10.1); Osmolality,Calculated 280.5 MOS/KG (273-304)
[2020-05-15] MEDS: INSULIN GLARGINE 100 UNIT/ML SUBCUT SCH (08:52)
[2020-05-15] MEDS: OMEPRAZOLE ODT 20 MG TABLET PEG SCH (08:53)
[2020-05-15] MEDS: SODIUM CHLORIDE 1 GM TABLET PER TUBE SCH ×4 (08:53→20:40)
[2020-05-15] MEDS: METOPROLOL TARTRATE 25 MG TABLET PO SCH ×2 (08:53→20:35)
[2020-05-15] MEDS: MUPIROCIN 2% OINT 22 GM TUBE TOP SCH ×2 (08:54→20:35)
[2020-05-15] MEDS: BRIMONIDINE/TIMOLOL OPH SOLN 5 ML BOTTLE BOTH EYES SCH ×2 (08:55→20:35)
[2020-05-15] MEDS: ATROPINE 1 % OPH SOLN 5 ML BOTTLE BOTH EYES SCH ×2 (08:55→20:35)
[2020-05-15] MEDS: MINERAL OIL/PETROLATUM OPH OINT 3.5 GM TUBE BOTH EYES SCH ×2 (09:09→20:35)
[2020-05-15] MEDS: ENOXAPARIN 40 MG/0.4 ML SYRINGE SUBCUT SCH (09:09)
[2020-05-15] MEDS: FERROUS SULFATE 300 MG/5 ML UDCUP PO SCH ×2 (12:13→20:35)
[2020-05-15] MEDS: COLLAGENASE OINT 30 GM TUBE TOP SCH (15:58)
[2020-05-16] MEDS: levETIRAcetam LIQUID 100 MG/ML 30 ML/BOTTLE PEG SCH ×3 (01:43→18:10)
[2020-05-16 05:17] LABS: Calcium 9.3 MG/DL (8.5-10.1); Osmolality,Calculated 276.5 MOS/KG (273-304)
[2020-05-16] MEDS: INSULIN LISPRO 100 UNIT/ML SUBCUT SCH ×4 (05:56→23:52)
[2020-05-16] MEDS: METOPROLOL TARTRATE 25 MG TABLET PO SCH ×2 (09:18→21:06)
[2020-05-16] MEDS: OMEPRAZOLE ODT 20 MG TABLET PEG SCH (09:18)
[2020-05-16] MEDS: SODIUM CHLORIDE 1 GM TABLET PER TUBE SCH ×4 (09:18→21:06)
[2020-05-16] MEDS: INSULIN GLARGINE 100 UNIT/ML SUBCUT SCH (09:19)
[2020-05-16] MEDS: FERROUS SULFATE 300 MG/5 ML UDCUP PO SCH ×2 (09:19→21:05)
[2020-05-16] MEDS: ENOXAPARIN 40 MG/0.4 ML SYRINGE SUBCUT SCH (09:20)
[2020-05-16] MEDS: BRIMONIDINE/TIMOLOL OPH SOLN 5 ML BOTTLE BOTH EYES SCH ×2 (09:21→21:07)
[2020-05-16] MEDS: MINERAL OIL/PETROLATUM OPH OINT 3.5 GM TUBE BOTH EYES SCH ×2 (09:22→21:06)
[2020-05-16] MEDS: MUPIROCIN 2% OINT 22 GM TUBE TOP SCH ×2 (09:22→21:06)
[2020-05-16] MEDS: ATROPINE 1 % OPH SOLN 5 ML BOTTLE BOTH EYES SCH ×2 (09:23→21:07)
[2020-05-16] MEDS: COLLAGENASE OINT 30 GM TUBE TOP SCH (09:24)
[2020-05-17] MEDS: levETIRAcetam LIQUID 100 MG/ML 30 ML/BOTTLE PEG SCH ×3 (02:34→17:55)
[2020-05-17] MEDS: INSULIN LISPRO 100 UNIT/ML SUBCUT SCH ×3 (06:35→17:54)
[2020-05-17] MEDS: ENOXAPARIN 40 MG/0.4 ML SYRINGE SUBCUT SCH (10:23)
[2020-05-17] MEDS: FERROUS SULFATE 300 MG/5 ML UDCUP PO SCH ×2 (10:24→20:55)
[2020-05-17] MEDS: INSULIN GLARGINE 100 UNIT/ML SUBCUT SCH (10:24)
[2020-05-17] MEDS: METOPROLOL TARTRATE 25 MG TABLET PO SCH ×2 (10:24→20:55)
[2020-05-17] MEDS: OMEPRAZOLE ODT 20 MG TABLET PEG SCH (10:24)
[2020-05-17] MEDS: BRIMONIDINE/TIMOLOL OPH SOLN 5 ML BOTTLE BOTH EYES SCH ×2 (10:25→20:56)
[2020-05-17] MEDS: ATROPINE 1 % OPH SOLN 5 ML BOTTLE BOTH EYES SCH ×2 (10:25→20:55)
[2020-05-17] MEDS: MUPIROCIN 2% OINT 22 GM TUBE TOP SCH ×2 (10:25→20:58)
[2020-05-17] MEDS: COLLAGENASE OINT 30 GM TUBE TOP SCH (10:27)
[2020-05-17] MEDS: SODIUM CHLORIDE 1 GM TABLET PER TUBE SCH ×4 (10:27→20:55)
[2020-05-17] MEDS: MINERAL OIL/PETROLATUM OPH OINT 3.5 GM TUBE BOTH EYES SCH ×2 (10:27→20:56)
[2020-05-18] MEDS: INSULIN LISPRO 100 UNIT/ML SUBCUT SCH ×4 (01:43→17:59)
[2020-05-18] MEDS: levETIRAcetam LIQUID 100 MG/ML 30 ML/BOTTLE PEG SCH ×3 (02:09→17:59)
[2020-05-18] MEDS: FERROUS SULFATE 300 MG/5 ML UDCUP PO SCH ×2 (09:46→20:17)
[2020-05-18] MEDS: COLLAGENASE OINT 30 GM TUBE TOP SCH (09:46)
[2020-05-18] MEDS: ATROPINE 1 % OPH SOLN 5 ML BOTTLE BOTH EYES SCH ×2 (09:46→20:10)
[2020-05-18] MEDS: MUPIROCIN 2% OINT 22 GM TUBE TOP SCH ×2 (09:46→20:10)
[2020-05-18] MEDS: BRIMONIDINE/TIMOLOL OPH SOLN 5 ML BOTTLE BOTH EYES SCH ×2 (09:46→20:10)
[2020-05-18] MEDS: METOPROLOL TARTRATE 25 MG TABLET PO SCH ×2 (09:46→20:17)
[2020-05-18] MEDS: INSULIN GLARGINE 100 UNIT/ML SUBCUT SCH (09:46)
[2020-05-18] MEDS: ENOXAPARIN 40 MG/0.4 ML SYRINGE SUBCUT SCH (09:46)
[2020-05-18] MEDS: MINERAL OIL/PETROLATUM OPH OINT 3.5 GM TUBE BOTH EYES SCH ×2 (09:46→20:10)
[2020-05-18] MEDS: OMEPRAZOLE ODT 20 MG TABLET PEG SCH (09:46)
[2020-05-18] MEDS: SODIUM CHLORIDE 1 GM TABLET PER TUBE SCH ×4 (09:46→20:17)
[2020-05-18] MEDS: MEROPENEM 500 MG in SODIUM CHLORIDE 0.9% 100 ML IV SCH ×2 (12:32→20:17)
[2020-05-19] MEDS: INSULIN LISPRO 100 UNIT/ML SUBCUT SCH ×4 (02:09→18:32)
[2020-05-19] MEDS: MEROPENEM 500 MG in SODIUM CHLORIDE 0.9% 100 ML IV SCH ×5 (02:10→23:34)
[2020-05-19] MEDS: levETIRAcetam LIQUID 100 MG/ML 30 ML/BOTTLE PEG SCH ×3 (02:11→18:32)
[2020-05-19] MEDS: ATROPINE 1 % OPH SOLN 5 ML BOTTLE BOTH EYES SCH ×2 (09:15→20:26)
[2020-05-19] MEDS: MINERAL OIL/PETROLATUM OPH OINT 3.5 GM TUBE BOTH EYES SCH ×2 (09:15→20:26)
[2020-05-19] MEDS: BRIMONIDINE/TIMOLOL OPH SOLN 5 ML BOTTLE BOTH EYES SCH ×2 (09:15→20:27)
[2020-05-19] MEDS: OMEPRAZOLE ODT 20 MG TABLET PEG SCH (09:15)
[2020-05-19] MEDS: COLLAGENASE OINT 30 GM TUBE TOP SCH (09:15)
[2020-05-19] MEDS: SODIUM CHLORIDE 1 GM TABLET PER TUBE SCH ×4 (09:15→20:25)
[2020-05-19] MEDS: INSULIN GLARGINE 100 UNIT/ML SUBCUT SCH (09:15)
[2020-05-19] MEDS: ENOXAPARIN 40 MG/0.4 ML SYRINGE SUBCUT SCH (09:15)
[2020-05-19] MEDS: FERROUS SULFATE 300 MG/5 ML UDCUP PO SCH ×2 (09:15→20:25)
[2020-05-19] MEDS: METOPROLOL TARTRATE 25 MG TABLET PO SCH ×2 (09:15→20:25)
[2020-05-19] MEDS: MUPIROCIN 2% OINT 22 GM TUBE TOP SCH ×2 (09:15→20:27)
[2020-05-20] MEDS: INSULIN LISPRO 100 UNIT/ML SUBCUT SCH ×4 (00:40→17:45)
[2020-05-20] MEDS: levETIRAcetam LIQUID 100 MG/ML 30 ML/BOTTLE PEG SCH ×3 (03:01→17:54)
[2020-05-20 05:37] LABS: Basophils % 0.2 % (0.0-0.8); Eosinophils # 0.2 10*3/uL (0.0-0.87); Eosinophils % 2.6 % (0.00-10.9); Hematocrit 30.5 VOL% (35.7-47.0); Hemoglobin 9.3 GM/DL (12.0-16.0); Immature Granulocytes % 1.2 %; Immature Granulocytes Absolute 0.08 #; Lymphocytes # 1.8 10*3/uL (1.4-4.0); Lymphocytes % 27.2 % (21.3-54.2); Mean Corpuscular HGB Conc 30.5 GM/DL (32-36); Mean Corpuscular Volume 85.7 FL (87-102); Monocytes % 12.3 % (1.7-12.7); Neutrophils % 56.5 % (38.7-73.9); Platelet Count 197 T/CUMM (130-400); Red Blood Count 3.56 MC/CUMM (3.8-5.5); Red Cell Distribution Width 15.2 % (9.3-17.3); White Blood Count 6.4 T/CUMM (4-12)
[2020-05-20 06:07] LABS: Calcium 9.1 MG/DL (8.5-10.1); Osmolality,Calculated 277.5 MOS/KG (273-304)
[2020-05-20] MEDS: MEROPENEM 500 MG in SODIUM CHLORIDE 0.9% 100 ML IV SCH ×3 (06:25→17:53)
[2020-05-20] MEDS: INSULIN GLARGINE 100 UNIT/ML SUBCUT SCH (08:50)
[2020-05-20] MEDS: FERROUS SULFATE 300 MG/5 ML UDCUP PO SCH ×2 (08:52→20:22)
[2020-05-20] MEDS: SODIUM CHLORIDE 1 GM TABLET PER TUBE SCH ×4 (08:52→20:22)
[2020-05-20] MEDS: OMEPRAZOLE ODT 20 MG TABLET PEG SCH (08:52)
[2020-05-20] MEDS: METOPROLOL TARTRATE 25 MG TABLET PO SCH ×2 (08:52→20:22)
[2020-05-20] MEDS: ATROPINE 1 % OPH SOLN 5 ML BOTTLE BOTH EYES SCH ×2 (08:53→20:22)
[2020-05-20] MEDS: MINERAL OIL/PETROLATUM OPH OINT 3.5 GM TUBE BOTH EYES SCH ×2 (08:53→20:22)
[2020-05-20] MEDS: MUPIROCIN 2% OINT 22 GM TUBE TOP SCH ×2 (08:53→20:22)
[2020-05-20] MEDS: BRIMONIDINE/TIMOLOL OPH SOLN 5 ML BOTTLE BOTH EYES SCH ×2 (08:53→20:22)
[2020-05-20] MEDS: COLLAGENASE OINT 30 GM TUBE TOP SCH (08:53)
[2020-05-20] MEDS: ENOXAPARIN 40 MG/0.4 ML SYRINGE SUBCUT SCH (09:02)
[2020-05-21] MEDS: MEROPENEM 500 MG in SODIUM CHLORIDE 0.9% 100 ML IV SCH ×5 (00:02→23:30)
[2020-05-21] MEDS: INSULIN LISPRO 100 UNIT/ML SUBCUT SCH ×5 (00:07→23:38)
[2020-05-21] MEDS: levETIRAcetam LIQUID 100 MG/ML 30 ML/BOTTLE PEG SCH ×3 (01:03→18:01)
[2020-05-21] MEDS: SODIUM CHLORIDE 1 GM TABLET PER TUBE SCH ×4 (08:53→20:28)
[2020-05-21] MEDS: INSULIN GLARGINE 100 UNIT/ML SUBCUT SCH (08:54)
[2020-05-21] MEDS: OMEPRAZOLE ODT 20 MG TABLET PEG SCH (08:54)
[2020-05-21] MEDS: METOPROLOL TARTRATE 25 MG TABLET PO SCH ×2 (08:54→20:28)
[2020-05-21] MEDS: FERROUS SULFATE 300 MG/5 ML UDCUP PO SCH ×2 (08:55→20:29)
[2020-05-21] MEDS: BRIMONIDINE/TIMOLOL OPH SOLN 5 ML BOTTLE BOTH EYES SCH ×2 (08:56→20:29)
[2020-05-21] MEDS: MINERAL OIL/PETROLATUM OPH OINT 3.5 GM TUBE BOTH EYES SCH ×2 (08:56→20:29)
[2020-05-21] MEDS: MUPIROCIN 2% OINT 22 GM TUBE TOP SCH ×2 (08:56→20:29)
[2020-05-21] MEDS: ATROPINE 1 % OPH SOLN 5 ML BOTTLE BOTH EYES SCH ×2 (08:56→20:29)
[2020-05-21] MEDS: COLLAGENASE OINT 30 GM TUBE TOP SCH (08:56)
[2020-05-21] MEDS: ENOXAPARIN 40 MG/0.4 ML SYRINGE SUBCUT SCH (09:02)
[2020-05-22] MEDS: levETIRAcetam LIQUID 100 MG/ML 30 ML/BOTTLE PEG SCH ×3 (01:12→18:22)
[2020-05-22] MEDS: MEROPENEM 500 MG in SODIUM CHLORIDE 0.9% 100 ML IV SCH ×3 (05:43→18:22)
[2020-05-22] MEDS: INSULIN LISPRO 100 UNIT/ML SUBCUT SCH ×3 (06:41→19:33)
[2020-05-22] MEDS: FERROUS SULFATE 300 MG/5 ML UDCUP PO SCH ×2 (10:36→20:58)
[2020-05-22] MEDS: METOPROLOL TARTRATE 25 MG TABLET PO SCH ×2 (10:36→21:00)
[2020-05-22] MEDS: INSULIN GLARGINE 100 UNIT/ML SUBCUT SCH (10:37)
[2020-05-22] MEDS: ENOXAPARIN 40 MG/0.4 ML SYRINGE SUBCUT SCH (10:37)
[2020-05-22] MEDS: SODIUM CHLORIDE 1 GM TABLET PER TUBE SCH ×4 (10:38→20:58)
[2020-05-22] MEDS: BRIMONIDINE/TIMOLOL OPH SOLN 5 ML BOTTLE BOTH EYES SCH ×2 (10:38→20:58)
[2020-05-22] MEDS: MUPIROCIN 2% OINT 22 GM TUBE TOP SCH ×2 (10:38→21:00)
[2020-05-22] MEDS: OMEPRAZOLE ODT 20 MG TABLET PEG SCH (10:38)
[2020-05-22] MEDS: ATROPINE 1 % OPH SOLN 5 ML BOTTLE BOTH EYES SCH ×2 (10:38→21:07)
[2020-05-22] MEDS: COLLAGENASE OINT 30 GM TUBE TOP SCH (10:39)
[2020-05-22] MEDS: MINERAL OIL/PETROLATUM OPH OINT 3.5 GM TUBE BOTH EYES SCH ×2 (10:39→20:59)
[2020-05-23] MEDS: MUPIROCIN 2% OINT 22 GM TUBE TOP SCH ×3 (00:03→21:00)
[2020-05-23] MEDS: ATROPINE 1 % OPH SOLN 5 ML BOTTLE BOTH EYES SCH ×3 (00:03→21:01)
[2020-05-23] MEDS: MEROPENEM 500 MG in SODIUM CHLORIDE 0.9% 100 ML IV SCH ×4 (00:06→17:25)
[2020-05-23] MEDS: INSULIN LISPRO 100 UNIT/ML SUBCUT SCH ×4 (01:36→19:14)
[2020-05-23] MEDS: levETIRAcetam LIQUID 100 MG/ML 30 ML/BOTTLE PEG SCH ×3 (02:10→17:25)
[2020-05-23 04:18] LABS: Osmolality,Calculated 275.7 MOS/KG (273-304)
[2020-05-23] MEDS: SODIUM CHLORIDE 1 GM TABLET PER TUBE SCH ×4 (09:20→21:00)
[2020-05-23] MEDS: ENOXAPARIN 40 MG/0.4 ML SYRINGE SUBCUT SCH (09:20)
[2020-05-23] MEDS: FERROUS SULFATE 300 MG/5 ML UDCUP PO SCH ×2 (09:20→21:00)
[2020-05-23] MEDS: INSULIN GLARGINE 100 UNIT/ML SUBCUT SCH (09:20)
[2020-05-23] MEDS: OMEPRAZOLE ODT 20 MG TABLET PEG SCH (09:20)
[2020-05-23] MEDS: BRIMONIDINE/TIMOLOL OPH SOLN 5 ML BOTTLE BOTH EYES SCH ×2 (09:20→21:01)
[2020-05-23] MEDS: MINERAL OIL/PETROLATUM OPH OINT 3.5 GM TUBE BOTH EYES SCH ×2 (09:20→21:00)
[2020-05-23] MEDS: METOPROLOL TARTRATE 25 MG TABLET PO SCH ×2 (09:20→21:01)
[2020-05-23] MEDS: COLLAGENASE OINT 30 GM TUBE TOP SCH (09:20)
[2020-05-24] MEDS: INSULIN LISPRO 100 UNIT/ML SUBCUT SCH ×5 (00:03→23:45)
[2020-05-24] MEDS: MEROPENEM 500 MG in SODIUM CHLORIDE 0.9% 100 ML IV SCH ×5 (00:03→23:45)
[2020-05-24] MEDS: levETIRAcetam LIQUID 100 MG/ML 30 ML/BOTTLE PEG SCH ×3 (01:30→17:36)
[2020-05-24] MEDS: FERROUS SULFATE 300 MG/5 ML UDCUP PO SCH ×2 (09:09→20:58)
[2020-05-24] MEDS: SODIUM CHLORIDE 1 GM TABLET PER TUBE SCH ×4 (09:09→20:57)
[2020-05-24] MEDS: OMEPRAZOLE ODT 20 MG TABLET PEG SCH (09:09)
[2020-05-24] MEDS: METOPROLOL TARTRATE 25 MG TABLET PO SCH ×2 (09:09→20:57)
[2020-05-24] MEDS: INSULIN GLARGINE 100 UNIT/ML SUBCUT SCH (09:10)
[2020-05-24] MEDS: ATROPINE 1 % OPH SOLN 5 ML BOTTLE BOTH EYES SCH ×2 (09:10→20:58)
[2020-05-24] MEDS: ENOXAPARIN 40 MG/0.4 ML SYRINGE SUBCUT SCH (09:10)
[2020-05-24] MEDS: BRIMONIDINE/TIMOLOL OPH SOLN 5 ML BOTTLE BOTH EYES SCH ×2 (09:10→20:58)
[2020-05-24] MEDS: MUPIROCIN 2% OINT 22 GM TUBE TOP SCH ×2 (09:10→20:58)
[2020-05-24] MEDS: COLLAGENASE OINT 30 GM TUBE TOP SCH (09:11)
[2020-05-24] MEDS: MINERAL OIL/PETROLATUM OPH OINT 3.5 GM TUBE BOTH EYES SCH ×2 (09:11→20:58)
[2020-05-25] MEDS: levETIRAcetam LIQUID 100 MG/ML 30 ML/BOTTLE PEG SCH ×3 (01:52→18:00)
[2020-05-25] MEDS: MEROPENEM 500 MG in SODIUM CHLORIDE 0.9% 100 ML IV SCH ×3 (05:52→18:00)
[2020-05-25] MEDS: INSULIN LISPRO 100 UNIT/ML SUBCUT SCH ×3 (06:32→17:11)
[2020-05-25] MEDS: MUPIROCIN 2% OINT 22 GM TUBE TOP SCH ×2 (09:11→20:40)
[2020-05-25] MEDS: BRIMONIDINE/TIMOLOL OPH SOLN 5 ML BOTTLE BOTH EYES SCH ×2 (09:12→20:39)
[2020-05-25] MEDS: INSULIN GLARGINE 100 UNIT/ML SUBCUT SCH (09:12)
[2020-05-25] MEDS: FERROUS SULFATE 300 MG/5 ML UDCUP PO SCH ×2 (09:12→20:39)
[2020-05-25] MEDS: METOPROLOL TARTRATE 25 MG TABLET PO SCH ×2 (09:12→20:39)
[2020-05-25] MEDS: SODIUM CHLORIDE 1 GM TABLET PER TUBE SCH ×4 (09:12→20:39)
[2020-05-25] MEDS: ENOXAPARIN 40 MG/0.4 ML SYRINGE SUBCUT SCH (09:12)
[2020-05-25] MEDS: COLLAGENASE OINT 30 GM TUBE TOP SCH (09:13)
[2020-05-25] MEDS: ATROPINE 1 % OPH SOLN 5 ML BOTTLE BOTH EYES SCH ×2 (09:13→20:41)
[2020-05-25] MEDS: OMEPRAZOLE ODT 20 MG TABLET PEG SCH (09:13)
[2020-05-25] MEDS: MINERAL OIL/PETROLATUM OPH OINT 3.5 GM TUBE BOTH EYES SCH ×2 (09:13→20:40)
[2020-05-26] MEDS: INSULIN LISPRO 100 UNIT/ML SUBCUT SCH ×4 (01:11→17:34)
[2020-05-26] MEDS: levETIRAcetam LIQUID 100 MG/ML 30 ML/BOTTLE PEG SCH ×3 (01:11→17:34)
[2020-05-26] MEDS: METOPROLOL TARTRATE 25 MG TABLET PO SCH ×2 (09:00→21:10)
[2020-05-26] MEDS: SODIUM CHLORIDE 1 GM TABLET PER TUBE SCH ×4 (09:00→21:12)
[2020-05-26] MEDS: FERROUS SULFATE 300 MG/5 ML UDCUP PO SCH ×2 (09:01→21:10)
[2020-05-26] MEDS: ENOXAPARIN 40 MG/0.4 ML SYRINGE SUBCUT SCH (09:01)
[2020-05-26] MEDS: MUPIROCIN 2% OINT 22 GM TUBE TOP SCH ×2 (09:10→21:12)
[2020-05-26] MEDS: BRIMONIDINE/TIMOLOL OPH SOLN 5 ML BOTTLE BOTH EYES SCH ×2 (09:11→21:11)
[2020-05-26] MEDS: ATROPINE 1 % OPH SOLN 5 ML BOTTLE BOTH EYES SCH ×2 (09:11→21:10)
[2020-05-26] MEDS: COLLAGENASE OINT 30 GM TUBE TOP SCH (09:15)
[2020-05-26] MEDS: MINERAL OIL/PETROLATUM OPH OINT 3.5 GM TUBE BOTH EYES SCH ×2 (09:16→21:12)
[2020-05-26] MEDS: OMEPRAZOLE ODT 20 MG TABLET PEG SCH (09:16)
[2020-05-26] MEDS: INSULIN GLARGINE 100 UNIT/ML SUBCUT SCH (10:17)
[2020-05-26] MEDS: ERYTHROMYCIN 0.5% OPHT OINT 3.5 GM TUBE BOTH EYES SCH ×3 (17:34→21:11)
[2020-05-27] MEDS: INSULIN LISPRO 100 UNIT/ML SUBCUT SCH ×5 (02:55→23:04)
[2020-05-27] MEDS: levETIRAcetam LIQUID 100 MG/ML 30 ML/BOTTLE PEG SCH ×3 (02:55→18:16)
[2020-05-27 04:28] LABS: Osmolality,Calculated 282.4 MOS/KG (273-304)
[2020-05-27] MEDS: ENOXAPARIN 40 MG/0.4 ML SYRINGE SUBCUT SCH (10:09)
[2020-05-27] MEDS: INSULIN GLARGINE 100 UNIT/ML SUBCUT SCH (10:09)
[2020-05-27] MEDS: FERROUS SULFATE 300 MG/5 ML UDCUP PO SCH ×2 (10:10→21:24)
[2020-05-27] MEDS: OMEPRAZOLE ODT 20 MG TABLET PEG SCH (10:10)
[2020-05-27] MEDS: SODIUM CHLORIDE 1 GM TABLET PER TUBE SCH ×4 (10:10→21:23)
[2020-05-27] MEDS: METOPROLOL TARTRATE 25 MG TABLET PO SCH ×2 (10:10→21:23)
[2020-05-27] MEDS: ATROPINE 1 % OPH SOLN 5 ML BOTTLE BOTH EYES SCH ×2 (10:11→21:24)
[2020-05-27] MEDS: MUPIROCIN 2% OINT 22 GM TUBE TOP SCH ×2 (10:11→21:26)
[2020-05-27] MEDS: BRIMONIDINE/TIMOLOL OPH SOLN 5 ML BOTTLE BOTH EYES SCH ×2 (10:11→21:25)
[2020-05-27] MEDS: MINERAL OIL/PETROLATUM OPH OINT 3.5 GM TUBE BOTH EYES SCH ×2 (10:13→21:25)
[2020-05-27] MEDS: ERYTHROMYCIN 0.5% OPHT OINT 3.5 GM TUBE BOTH EYES SCH ×4 (10:13→21:25)
[2020-05-27] MEDS: COLLAGENASE OINT 30 GM TUBE TOP SCH (10:14)
[2020-05-27] MEDS: SKIN HEALING OINT (AQUAPHOR) 50 GM TUBE TOP PRN (11:43)
[2020-05-28] MEDS: levETIRAcetam LIQUID 100 MG/ML 30 ML/BOTTLE PEG SCH ×3 (02:30→17:56)
[2020-05-28] MEDS: INSULIN LISPRO 100 UNIT/ML SUBCUT SCH ×3 (06:43→17:56)
[2020-05-28] MEDS: BRIMONIDINE/TIMOLOL OPH SOLN 5 ML BOTTLE BOTH EYES SCH ×2 (08:40→20:24)
[2020-05-28] MEDS: ERYTHROMYCIN 0.5% OPHT OINT 3.5 GM TUBE BOTH EYES SCH ×4 (08:40→20:23)
[2020-05-28] MEDS: SKIN HEALING OINT (AQUAPHOR) 50 GM TUBE TOP PRN (08:40)
[2020-05-28] MEDS: ATROPINE 1 % OPH SOLN 5 ML BOTTLE BOTH EYES SCH ×2 (08:40→20:23)
[2020-05-28] MEDS: COLLAGENASE OINT 30 GM TUBE TOP SCH (08:41)
[2020-05-28] MEDS: METOPROLOL TARTRATE 25 MG TABLET PO SCH ×2 (08:41→20:24)
[2020-05-28] MEDS: MUPIROCIN 2% OINT 22 GM TUBE TOP SCH ×2 (08:41→20:24)
[2020-05-28] MEDS: OMEPRAZOLE ODT 20 MG TABLET PEG SCH (08:41)
[2020-05-28] MEDS: SODIUM CHLORIDE 1 GM TABLET PER TUBE SCH ×4 (08:41→20:25)
[2020-05-28] MEDS: FERROUS SULFATE 300 MG/5 ML UDCUP PO SCH ×2 (08:42→20:24)
[2020-05-28] MEDS: INSULIN GLARGINE 100 UNIT/ML SUBCUT SCH (08:42)
[2020-05-28] MEDS: MINERAL OIL/PETROLATUM OPH OINT 3.5 GM TUBE BOTH EYES SCH ×2 (08:43→20:23)
[2020-05-28] MEDS: ENOXAPARIN 40 MG/0.4 ML SYRINGE SUBCUT SCH (10:00)
[2020-05-29] MEDS: INSULIN LISPRO 100 UNIT/ML SUBCUT SCH ×4 (01:03→18:05)
[2020-05-29] MEDS: levETIRAcetam LIQUID 100 MG/ML 30 ML/BOTTLE PEG SCH ×3 (02:44→17:38)
[2020-05-29] MEDS: METOPROLOL TARTRATE 25 MG TABLET PO SCH ×2 (09:12→21:55)
[2020-05-29] MEDS: INSULIN GLARGINE 100 UNIT/ML SUBCUT SCH (09:12)
[2020-05-29] MEDS: OMEPRAZOLE ODT 20 MG TABLET PEG SCH (09:12)
[2020-05-29] MEDS: BRIMONIDINE/TIMOLOL OPH SOLN 5 ML BOTTLE BOTH EYES SCH ×2 (09:13→21:57)
[2020-05-29] MEDS: FERROUS SULFATE 300 MG/5 ML UDCUP PO SCH ×2 (09:13→21:55)
[2020-05-29] MEDS: MUPIROCIN 2% OINT 22 GM TUBE TOP SCH ×2 (09:13→21:57)
[2020-05-29] MEDS: ERYTHROMYCIN 0.5% OPHT OINT 3.5 GM TUBE BOTH EYES SCH ×4 (09:14→21:55)
[2020-05-29] MEDS: ATROPINE 1 % OPH SOLN 5 ML BOTTLE BOTH EYES SCH ×2 (09:14→21:56)
[2020-05-29] MEDS: MINERAL OIL/PETROLATUM OPH OINT 3.5 GM TUBE BOTH EYES SCH ×2 (09:15→21:56)
[2020-05-29] MEDS: COLLAGENASE OINT 30 GM TUBE TOP SCH (09:16)
[2020-05-29] MEDS: SODIUM CHLORIDE 1 GM TABLET PER TUBE SCH ×4 (09:17→21:55)
[2020-05-29] MEDS: ENOXAPARIN 40 MG/0.4 ML SYRINGE SUBCUT SCH (09:17)
[2020-05-30] MEDS: INSULIN LISPRO 100 UNIT/ML SUBCUT SCH ×4 (00:57→17:22)
[2020-05-30] MEDS: levETIRAcetam LIQUID 100 MG/ML 30 ML/BOTTLE PEG SCH ×3 (02:06→17:20)
[2020-05-30 06:31] LABS: Calcium 8.9 MG/DL (8.5-10.1); Osmolality,Calculated 283.3 MOS/KG (273-304)
[2020-05-30] MEDS: OMEPRAZOLE ODT 20 MG TABLET PEG SCH (08:43)
[2020-05-30] MEDS: SODIUM CHLORIDE 1 GM TABLET PER TUBE SCH ×4 (08:43→20:25)
[2020-05-30] MEDS: METOPROLOL TARTRATE 25 MG TABLET PO SCH ×2 (08:43→20:25)
[2020-05-30] MEDS: MUPIROCIN 2% OINT 22 GM TUBE TOP SCH ×2 (08:44→20:27)
[2020-05-30] MEDS: COLLAGENASE OINT 30 GM TUBE TOP SCH (08:44)
[2020-05-30] MEDS: INSULIN GLARGINE 100 UNIT/ML SUBCUT SCH (08:44)
[2020-05-30] MEDS: MINERAL OIL/PETROLATUM OPH OINT 3.5 GM TUBE BOTH EYES SCH ×2 (08:45→20:26)
[2020-05-30] MEDS: ERYTHROMYCIN 0.5% OPHT OINT 3.5 GM TUBE BOTH EYES SCH ×4 (08:45→20:26)
[2020-05-30] MEDS: BRIMONIDINE/TIMOLOL OPH SOLN 5 ML BOTTLE BOTH EYES SCH ×2 (08:45→20:27)
[2020-05-30] MEDS: ATROPINE 1 % OPH SOLN 5 ML BOTTLE BOTH EYES SCH ×2 (08:45→20:26)
[2020-05-30] MEDS: FERROUS SULFATE 300 MG/5 ML UDCUP PO SCH (08:46)
[2020-05-30] MEDS: ENOXAPARIN 40 MG/0.4 ML SYRINGE SUBCUT SCH (09:43)
[2020-05-31] MEDS: INSULIN LISPRO 100 UNIT/ML SUBCUT SCH ×3 (01:05→12:26)
[2020-05-31] MEDS: levETIRAcetam LIQUID 100 MG/ML 30 ML/BOTTLE PEG SCH ×3 (01:43→17:52)
[2020-05-31] MEDS: BRIMONIDINE/TIMOLOL OPH SOLN 5 ML BOTTLE BOTH EYES SCH ×2 (09:42→21:41)
[2020-05-31] MEDS: ERYTHROMYCIN 0.5% OPHT OINT 3.5 GM TUBE BOTH EYES SCH ×4 (09:42→21:41)
[2020-05-31] MEDS: ATROPINE 1 % OPH SOLN 5 ML BOTTLE BOTH EYES SCH ×2 (09:42→21:41)
[2020-05-31] MEDS: MUPIROCIN 2% OINT 22 GM TUBE TOP SCH ×2 (09:43→21:42)
[2020-05-31] MEDS: INSULIN GLARGINE 100 UNIT/ML SUBCUT SCH (09:45)
[2020-05-31] MEDS: COLLAGENASE OINT 30 GM TUBE TOP SCH (09:47)
[2020-05-31] MEDS: MINERAL OIL/PETROLATUM OPH OINT 3.5 GM TUBE BOTH EYES SCH ×2 (09:47→21:41)
[2020-05-31] MEDS: METOPROLOL TARTRATE 25 MG TABLET PO SCH ×2 (09:48→21:41)
[2020-05-31] MEDS: SODIUM CHLORIDE 1 GM TABLET PER TUBE SCH ×2 (09:48→13:34)
[2020-06-01] MEDS: levETIRAcetam LIQUID 100 MG/ML 30 ML/BOTTLE PEG SCH ×3 (02:38→17:19)
[2020-06-01] MEDS: METOPROLOL TARTRATE 25 MG TABLET PO SCH ×2 (09:38→20:40)
[2020-06-01] MEDS: INSULIN GLARGINE 100 UNIT/ML SUBCUT SCH (09:39)
[2020-06-01] MEDS: COLLAGENASE OINT 30 GM TUBE TOP SCH (09:40)
[2020-06-01] MEDS: MUPIROCIN 2% OINT 22 GM TUBE TOP SCH ×2 (09:40→20:40)
[2020-06-01] MEDS: BRIMONIDINE/TIMOLOL OPH SOLN 5 ML BOTTLE BOTH EYES SCH ×2 (09:40→20:40)
[2020-06-01] MEDS: ERYTHROMYCIN 0.5% OPHT OINT 3.5 GM TUBE BOTH EYES SCH ×4 (09:41→20:40)
[2020-06-01] MEDS: MINERAL OIL/PETROLATUM OPH OINT 3.5 GM TUBE BOTH EYES SCH ×2 (09:41→20:41)
[2020-06-01] MEDS: ATROPINE 1 % OPH SOLN 5 ML BOTTLE BOTH EYES SCH ×2 (09:41→20:41)
[2020-06-02] MEDS: levETIRAcetam LIQUID 100 MG/ML 30 ML/BOTTLE PEG SCH ×3 (01:42→17:29)
[2020-06-02] MEDS: INSULIN GLARGINE 100 UNIT/ML SUBCUT SCH (09:37)
[2020-06-02] MEDS: METOPROLOL TARTRATE 25 MG TABLET PO SCH ×2 (09:37→23:09)
[2020-06-02] MEDS: COLLAGENASE OINT 30 GM TUBE TOP SCH (09:38)
[2020-06-02] MEDS: ATROPINE 1 % OPH SOLN 5 ML BOTTLE BOTH EYES SCH ×2 (09:38→23:08)
[2020-06-02] MEDS: BRIMONIDINE/TIMOLOL OPH SOLN 5 ML BOTTLE BOTH EYES SCH ×2 (09:38→23:08)
[2020-06-02] MEDS: MUPIROCIN 2% OINT 22 GM TUBE TOP SCH ×2 (09:38→23:05)
[2020-06-02] MEDS: MINERAL OIL/PETROLATUM OPH OINT 3.5 GM TUBE BOTH EYES SCH ×2 (09:39→23:08)
[2020-06-02] MEDS: ERYTHROMYCIN 0.5% OPHT OINT 3.5 GM TUBE BOTH EYES SCH ×4 (09:39→23:08)
[2020-06-03] MEDS: levETIRAcetam LIQUID 100 MG/ML 30 ML/BOTTLE PEG SCH ×3 (04:44→17:31)
[2020-06-03] MEDS: METOPROLOL TARTRATE 25 MG TABLET PO SCH ×2 (09:56→21:23)
[2020-06-03] MEDS: ATROPINE 1 % OPH SOLN 5 ML BOTTLE BOTH EYES SCH ×2 (09:57→21:23)
[2020-06-03] MEDS: COLLAGENASE OINT 30 GM TUBE TOP SCH (09:58)
[2020-06-03] MEDS: BRIMONIDINE/TIMOLOL OPH SOLN 5 ML BOTTLE BOTH EYES SCH ×2 (09:58→21:24)
[2020-06-03] MEDS: MUPIROCIN 2% OINT 22 GM TUBE TOP SCH ×2 (09:58→21:24)
[2020-06-03] MEDS: ERYTHROMYCIN 0.5% OPHT OINT 3.5 GM TUBE BOTH EYES SCH ×4 (09:58→21:23)
[2020-06-03] MEDS: MINERAL OIL/PETROLATUM OPH OINT 3.5 GM TUBE BOTH EYES SCH ×2 (09:58→21:23)
[2020-06-03] MEDS: INSULIN GLARGINE 100 UNIT/ML SUBCUT SCH (10:30)
[2020-06-04] MEDS: levETIRAcetam LIQUID 100 MG/ML 30 ML/BOTTLE PEG SCH ×3 (01:11→17:45)
[2020-06-04] MEDS: BRIMONIDINE/TIMOLOL OPH SOLN 5 ML BOTTLE BOTH EYES SCH ×2 (08:46→21:29)
[2020-06-04] MEDS: MUPIROCIN 2% OINT 22 GM TUBE TOP SCH ×2 (08:46→21:30)
[2020-06-04] MEDS: ERYTHROMYCIN 0.5% OPHT OINT 3.5 GM TUBE BOTH EYES SCH ×4 (08:46→21:28)
[2020-06-04] MEDS: INSULIN GLARGINE 100 UNIT/ML SUBCUT SCH (08:47)
[2020-06-04] MEDS: MINERAL OIL/PETROLATUM OPH OINT 3.5 GM TUBE BOTH EYES SCH ×2 (08:47→21:29)
[2020-06-04] MEDS: ATROPINE 1 % OPH SOLN 5 ML BOTTLE BOTH EYES SCH ×2 (08:47→21:28)
[2020-06-04] MEDS: METOPROLOL TARTRATE 25 MG TABLET PO SCH ×2 (08:48→21:23)
[2020-06-04] MEDS: COLLAGENASE OINT 30 GM TUBE TOP SCH (08:49)
[2020-06-05] MEDS: levETIRAcetam LIQUID 100 MG/ML 30 ML/BOTTLE PEG SCH ×3 (02:21→16:58)
[2020-06-05] MEDS: ATROPINE 1 % OPH SOLN 5 ML BOTTLE BOTH EYES SCH ×2 (08:51→22:37)
[2020-06-05] MEDS: ERYTHROMYCIN 0.5% OPHT OINT 3.5 GM TUBE BOTH EYES SCH ×4 (08:51→22:37)
[2020-06-05] MEDS: BRIMONIDINE/TIMOLOL OPH SOLN 5 ML BOTTLE BOTH EYES SCH ×2 (08:51→22:37)
[2020-06-05] MEDS: MUPIROCIN 2% OINT 22 GM TUBE TOP SCH ×2 (08:51→22:37)
[2020-06-05] MEDS: MINERAL OIL/PETROLATUM OPH OINT 3.5 GM TUBE BOTH EYES SCH ×2 (08:51→22:37)
[2020-06-05] MEDS: COLLAGENASE OINT 30 GM TUBE TOP SCH (08:52)
[2020-06-05] MEDS: SODIUM HYPOCHLORITE 0.25% IRRIG 473 ML BOTTLE TOP SCH (18:56)
[2020-06-06] MEDS: levETIRAcetam LIQUID 100 MG/ML 30 ML/BOTTLE PEG SCH ×3 (02:00→18:06)
[2020-06-06] MEDS: ATROPINE 1 % OPH SOLN 5 ML BOTTLE BOTH EYES SCH (08:41)
[2020-06-06] MEDS: ERYTHROMYCIN 0.5% OPHT OINT 3.5 GM TUBE BOTH EYES SCH ×4 (08:41→22:35)
[2020-06-06] MEDS: BRIMONIDINE/TIMOLOL OPH SOLN 5 ML BOTTLE BOTH EYES SCH ×2 (08:41→22:35)
[2020-06-06] MEDS: MUPIROCIN 2% OINT 22 GM TUBE TOP SCH ×2 (08:41→22:00)
[2020-06-06] MEDS: MINERAL OIL/PETROLATUM OPH OINT 3.5 GM TUBE BOTH EYES SCH ×2 (08:41→22:36)
[2020-06-06] MEDS: SODIUM HYPOCHLORITE 0.25% IRRIG 473 ML BOTTLE TOP SCH (10:43)
[2020-06-06] MEDS: COLLAGENASE OINT 30 GM TUBE TOP SCH (10:43)
[2020-06-07] MEDS: ATROPINE 1 % OPH SOLN 5 ML BOTTLE BOTH EYES SCH ×3 (01:54→21:20)
[2020-06-07] MEDS: levETIRAcetam LIQUID 100 MG/ML 30 ML/BOTTLE PEG SCH ×3 (01:54→17:59)
[2020-06-07] MEDS: SODIUM HYPOCHLORITE 0.25% IRRIG 473 ML BOTTLE TOP SCH (08:37)
[2020-06-07] MEDS: MUPIROCIN 2% OINT 22 GM TUBE TOP SCH ×2 (08:37→21:21)
[2020-06-07] MEDS: MINERAL OIL/PETROLATUM OPH OINT 3.5 GM TUBE BOTH EYES SCH ×2 (08:37→21:21)
[2020-06-07] MEDS: ERYTHROMYCIN 0.5% OPHT OINT 3.5 GM TUBE BOTH EYES SCH ×4 (08:37→21:20)
[2020-06-07] MEDS: COLLAGENASE OINT 30 GM TUBE TOP SCH (08:37)
[2020-06-07] MEDS: BRIMONIDINE/TIMOLOL OPH SOLN 5 ML BOTTLE BOTH EYES SCH ×2 (08:37→21:25)
[2020-06-08] MEDS: levETIRAcetam LIQUID 100 MG/ML 30 ML/BOTTLE PEG SCH ×3 (02:27→17:15)
[2020-06-08] MEDS: BRIMONIDINE/TIMOLOL OPH SOLN 5 ML BOTTLE BOTH EYES SCH ×2 (08:42→21:40)
[2020-06-08] MEDS: MUPIROCIN 2% OINT 22 GM TUBE TOP SCH ×2 (08:42→21:40)
[2020-06-08] MEDS: ERYTHROMYCIN 0.5% OPHT OINT 3.5 GM TUBE BOTH EYES SCH ×4 (08:42→21:39)
[2020-06-08] MEDS: SODIUM HYPOCHLORITE 0.25% IRRIG 473 ML BOTTLE TOP SCH (08:42)
[2020-06-08] MEDS: ATROPINE 1 % OPH SOLN 5 ML BOTTLE BOTH EYES SCH ×2 (08:42→21:39)
[2020-06-08] MEDS: COLLAGENASE OINT 30 GM TUBE TOP SCH (08:43)
[2020-06-08] MEDS: MINERAL OIL/PETROLATUM OPH OINT 3.5 GM TUBE BOTH EYES SCH ×2 (08:43→21:40)
[2020-06-09] MEDS: levETIRAcetam LIQUID 100 MG/ML 30 ML/BOTTLE PEG SCH ×3 (01:54→18:10)
[2020-06-09] MEDS: COLLAGENASE OINT 30 GM TUBE TOP SCH (09:50)
[2020-06-09] MEDS: MUPIROCIN 2% OINT 22 GM TUBE TOP SCH ×2 (09:50→21:10)
[2020-06-09] MEDS: SODIUM HYPOCHLORITE 0.25% IRRIG 473 ML BOTTLE TOP SCH (09:50)
[2020-06-09] MEDS: BRIMONIDINE/TIMOLOL OPH SOLN 5 ML BOTTLE BOTH EYES SCH ×2 (09:50→21:10)
[2020-06-09] MEDS: MINERAL OIL/PETROLATUM OPH OINT 3.5 GM TUBE BOTH EYES SCH ×2 (09:50→21:10)
[2020-06-09] MEDS: ERYTHROMYCIN 0.5% OPHT OINT 3.5 GM TUBE BOTH EYES SCH ×4 (09:50→21:11)
[2020-06-09] MEDS: ATROPINE 1 % OPH SOLN 5 ML BOTTLE BOTH EYES SCH ×2 (09:50→21:09)
[2020-06-10] MEDS: levETIRAcetam LIQUID 100 MG/ML 30 ML/BOTTLE PEG SCH ×3 (03:38→17:49)
[2020-06-10] MEDS: MUPIROCIN 2% OINT 22 GM TUBE TOP SCH ×2 (09:23→21:34)
[2020-06-10] MEDS: ERYTHROMYCIN 0.5% OPHT OINT 3.5 GM TUBE BOTH EYES SCH ×4 (09:28→21:34)
[2020-06-10] MEDS: ATROPINE 1 % OPH SOLN 5 ML BOTTLE BOTH EYES SCH ×2 (09:28→21:34)
[2020-06-10] MEDS: SODIUM HYPOCHLORITE 0.25% IRRIG 473 ML BOTTLE TOP SCH (09:28)
[2020-06-10] MEDS: BRIMONIDINE/TIMOLOL OPH SOLN 5 ML BOTTLE BOTH EYES SCH ×2 (09:28→21:34)
[2020-06-10] MEDS: MINERAL OIL/PETROLATUM OPH OINT 3.5 GM TUBE BOTH EYES SCH ×2 (09:28→21:34)
[2020-06-10] MEDS: COLLAGENASE OINT 30 GM TUBE TOP SCH (09:30)
[2020-06-11] MEDS: levETIRAcetam LIQUID 100 MG/ML 30 ML/BOTTLE PEG SCH ×3 (02:47→17:11)
[2020-06-11 04:12] LABS: Basophils % 0.5 % (0.0-0.8); Eosinophils # 0.4 10*3/uL (0.0-0.87); Eosinophils % 5.3 % (0.00-10.9); Hematocrit 32.4 VOL% (35.7-47.0); Hemoglobin 9.9 GM/DL (12.0-16.0); Immature Granulocytes % 1.5 %; Immature Granulocytes Absolute 0.11 #; Lymphocytes # 2.1 10*3/uL (1.4-4.0); Lymphocytes % 28.7 % (21.3-54.2); Mean Corpuscular HGB Conc 30.6 GM/DL (32-36); Mean Corpuscular Volume 83.7 FL (87-102); Monocytes % 13.2 % (1.7-12.7); Neutrophils % 50.8 % (38.7-73.9); Platelet Count 190 T/CUMM (130-400); Red Blood Count 3.87 MC/CUMM (3.8-5.5); Red Cell Distribution Width 15.8 % (9.3-17.3); White Blood Count 7.3 T/CUMM (4-12)
[2020-06-11 04:35] LABS: Calcium 8.9 MG/DL (8.5-10.1); Osmolality,Calculated 281.7 MOS/KG (273-304)
[2020-06-11] MEDS: ATROPINE 1 % OPH SOLN 5 ML BOTTLE BOTH EYES SCH ×2 (09:19→21:05)
[2020-06-11] MEDS: ERYTHROMYCIN 0.5% OPHT OINT 3.5 GM TUBE BOTH EYES SCH ×4 (09:19→21:05)
[2020-06-11] MEDS: SODIUM HYPOCHLORITE 0.25% IRRIG 473 ML BOTTLE TOP SCH (09:19)
[2020-06-11] MEDS: BRIMONIDINE/TIMOLOL OPH SOLN 5 ML BOTTLE BOTH EYES SCH ×2 (09:19→21:05)
[2020-06-11] MEDS: MUPIROCIN 2% OINT 22 GM TUBE TOP SCH ×2 (09:19→21:05)
[2020-06-11] MEDS: MINERAL OIL/PETROLATUM OPH OINT 3.5 GM TUBE BOTH EYES SCH ×2 (09:19→21:05)
[2020-06-11] MEDS: COLLAGENASE OINT 30 GM TUBE TOP SCH (16:58)
[2020-06-12] MEDS: levETIRAcetam LIQUID 100 MG/ML 30 ML/BOTTLE PEG SCH ×3 (02:50→18:57)
[2020-06-12] MEDS: MUPIROCIN 2% OINT 22 GM TUBE TOP SCH ×2 (11:40→20:35)
[2020-06-12] MEDS: SODIUM HYPOCHLORITE 0.25% IRRIG 473 ML BOTTLE TOP SCH (11:41)
[2020-06-12] MEDS: ERYTHROMYCIN 0.5% OPHT OINT 3.5 GM TUBE BOTH EYES SCH ×4 (11:41→20:35)
[2020-06-12] MEDS: COLLAGENASE OINT 30 GM TUBE TOP SCH (11:41)
[2020-06-12] MEDS: BRIMONIDINE/TIMOLOL OPH SOLN 5 ML BOTTLE BOTH EYES SCH ×2 (11:41→20:35)
[2020-06-12] MEDS: MINERAL OIL/PETROLATUM OPH OINT 3.5 GM TUBE BOTH EYES SCH ×2 (11:41→20:35)
[2020-06-12] MEDS: ATROPINE 1 % OPH SOLN 5 ML BOTTLE BOTH EYES SCH ×2 (11:41→20:35)
[2020-06-13] MEDS: levETIRAcetam LIQUID 100 MG/ML 30 ML/BOTTLE PEG SCH ×3 (02:52→17:54)
[2020-06-13] MEDS: SODIUM HYPOCHLORITE 0.25% IRRIG 473 ML BOTTLE TOP SCH (11:45)
[2020-06-13] MEDS: ERYTHROMYCIN 0.5% OPHT OINT 3.5 GM TUBE BOTH EYES SCH ×4 (11:45→21:56)
[2020-06-13] MEDS: BRIMONIDINE/TIMOLOL OPH SOLN 5 ML BOTTLE BOTH EYES SCH ×2 (11:45→21:56)
[2020-06-13] MEDS: MUPIROCIN 2% OINT 22 GM TUBE TOP SCH ×2 (11:46→22:56)
[2020-06-13] MEDS: MINERAL OIL/PETROLATUM OPH OINT 3.5 GM TUBE BOTH EYES SCH ×2 (11:46→21:56)
[2020-06-13] MEDS: ATROPINE 1 % OPH SOLN 5 ML BOTTLE BOTH EYES SCH ×2 (11:46→21:56)
[2020-06-13] MEDS: COLLAGENASE OINT 30 GM TUBE TOP SCH (11:47)
[2020-06-14] MEDS: levETIRAcetam LIQUID 100 MG/ML 30 ML/BOTTLE PEG SCH ×3 (02:54→17:32)
[2020-06-14] MEDS: SODIUM HYPOCHLORITE 0.25% IRRIG 473 ML BOTTLE TOP SCH (09:25)
[2020-06-14] MEDS: MUPIROCIN 2% OINT 22 GM TUBE TOP SCH ×2 (09:25→21:30)
[2020-06-14] MEDS: ATROPINE 1 % OPH SOLN 5 ML BOTTLE BOTH EYES SCH ×2 (09:25→21:30)
[2020-06-14] MEDS: ERYTHROMYCIN 0.5% OPHT OINT 3.5 GM TUBE BOTH EYES SCH ×4 (09:25→21:30)
[2020-06-14] MEDS: COLLAGENASE OINT 30 GM TUBE TOP SCH ×2 (09:25→19:33)
[2020-06-14] MEDS: BRIMONIDINE/TIMOLOL OPH SOLN 5 ML BOTTLE BOTH EYES SCH ×2 (09:25→21:30)
[2020-06-14] MEDS: MINERAL OIL/PETROLATUM OPH OINT 3.5 GM TUBE BOTH EYES SCH ×2 (09:25→21:30)
[2020-06-14] MEDS ORDERED: TUBERCULIN SKIN TEST 0.1 ML SYRINGE INTRADERM ONE (09:42)
[2020-06-15] MEDS: levETIRAcetam LIQUID 100 MG/ML 30 ML/BOTTLE PEG SCH ×3 (03:00→18:17)
[2020-06-15] MEDS: ATROPINE 1 % OPH SOLN 5 ML BOTTLE BOTH EYES SCH ×2 (08:34→22:36)
[2020-06-15] MEDS: ERYTHROMYCIN 0.5% OPHT OINT 3.5 GM TUBE BOTH EYES SCH ×4 (08:35→22:36)
[2020-06-15] MEDS: BRIMONIDINE/TIMOLOL OPH SOLN 5 ML BOTTLE BOTH EYES SCH ×2 (08:35→22:36)
[2020-06-15] MEDS: MUPIROCIN 2% OINT 22 GM TUBE TOP SCH ×2 (08:35→22:36)
[2020-06-15] MEDS: MINERAL OIL/PETROLATUM OPH OINT 3.5 GM TUBE BOTH EYES SCH ×2 (08:35→22:36)
[2020-06-15] MEDS: SODIUM HYPOCHLORITE 0.25% IRRIG 473 ML BOTTLE TOP SCH (08:36)
[2020-06-16] MEDS: levETIRAcetam LIQUID 100 MG/ML 30 ML/BOTTLE PEG SCH ×4 (03:00→18:05)
[2020-06-16] MEDS: SODIUM HYPOCHLORITE 0.25% IRRIG 473 ML BOTTLE TOP SCH (09:57)
[2020-06-16] MEDS: BRIMONIDINE/TIMOLOL OPH SOLN 5 ML BOTTLE BOTH EYES SCH ×2 (09:57→22:44)
[2020-06-16] MEDS: MUPIROCIN 2% OINT 22 GM TUBE TOP SCH ×2 (09:58→22:44)
[2020-06-16] MEDS: ERYTHROMYCIN 0.5% OPHT OINT 3.5 GM TUBE BOTH EYES SCH ×4 (09:58→22:44)
[2020-06-16] MEDS: ATROPINE 1 % OPH SOLN 5 ML BOTTLE BOTH EYES SCH ×2 (09:58→22:44)
[2020-06-16] MEDS: MINERAL OIL/PETROLATUM OPH OINT 3.5 GM TUBE BOTH EYES SCH ×2 (16:27→22:44)
[2020-06-17] MEDS: levETIRAcetam LIQUID 100 MG/ML 30 ML/BOTTLE PEG SCH ×3 (03:03→18:12)
[2020-06-17] MEDS: ATROPINE 1 % OPH SOLN 5 ML BOTTLE BOTH EYES SCH ×2 (09:29→21:21)
[2020-06-17] MEDS: BRIMONIDINE/TIMOLOL OPH SOLN 5 ML BOTTLE BOTH EYES SCH ×2 (09:29→21:22)
[2020-06-17] MEDS: MINERAL OIL/PETROLATUM OPH OINT 3.5 GM TUBE BOTH EYES SCH ×2 (09:30→21:25)
[2020-06-17] MEDS: ERYTHROMYCIN 0.5% OPHT OINT 3.5 GM TUBE BOTH EYES SCH ×4 (09:30→21:21)
[2020-06-17] MEDS: MUPIROCIN 2% OINT 22 GM TUBE TOP SCH ×2 (09:41→21:25)
[2020-06-17] MEDS: SODIUM HYPOCHLORITE 0.25% IRRIG 473 ML BOTTLE TOP SCH (12:13)
[2020-06-18] MEDS: levETIRAcetam LIQUID 100 MG/ML 30 ML/BOTTLE PEG SCH ×3 (02:56→17:55)
[2020-06-18] MEDS: MUPIROCIN 2% OINT 22 GM TUBE TOP SCH ×2 (09:27→21:43)
[2020-06-18] MEDS: SODIUM HYPOCHLORITE 0.25% IRRIG 473 ML BOTTLE TOP SCH (09:28)
[2020-06-18] MEDS: BRIMONIDINE/TIMOLOL OPH SOLN 5 ML BOTTLE BOTH EYES SCH ×2 (09:28→21:42)
[2020-06-18] MEDS: ATROPINE 1 % OPH SOLN 5 ML BOTTLE BOTH EYES SCH ×2 (09:29→21:41)
[2020-06-18] MEDS: ERYTHROMYCIN 0.5% OPHT OINT 3.5 GM TUBE BOTH EYES SCH ×4 (09:29→21:41)
[2020-06-18] MEDS: MINERAL OIL/PETROLATUM OPH OINT 3.5 GM TUBE BOTH EYES SCH ×2 (09:30→21:43)
[2020-06-19] MEDS: levETIRAcetam LIQUID 100 MG/ML 30 ML/BOTTLE PEG SCH ×3 (02:46→17:15)
[2020-06-19] MEDS: ERYTHROMYCIN 0.5% OPHT OINT 3.5 GM TUBE BOTH EYES SCH ×4 (09:05→20:41)
[2020-06-19] MEDS: BRIMONIDINE/TIMOLOL OPH SOLN 5 ML BOTTLE BOTH EYES SCH ×2 (09:05→20:41)
[2020-06-19] MEDS: MUPIROCIN 2% OINT 22 GM TUBE TOP SCH ×2 (09:05→20:40)
[2020-06-19] MEDS: ATROPINE 1 % OPH SOLN 5 ML BOTTLE BOTH EYES SCH ×2 (09:05→20:41)
[2020-06-19] MEDS: MINERAL OIL/PETROLATUM OPH OINT 3.5 GM TUBE BOTH EYES SCH ×2 (09:55→20:40)
[2020-06-19] MEDS: SODIUM HYPOCHLORITE 0.25% IRRIG 473 ML BOTTLE TOP SCH (14:55)
[2020-06-20] MEDS: levETIRAcetam LIQUID 100 MG/ML 30 ML/BOTTLE PEG SCH ×3 (02:01→17:52)
[2020-06-20] MEDS: MUPIROCIN 2% OINT 22 GM TUBE TOP SCH ×2 (09:21→21:32)
[2020-06-20] MEDS: ERYTHROMYCIN 0.5% OPHT OINT 3.5 GM TUBE BOTH EYES SCH ×4 (09:22→21:19)
[2020-06-20] MEDS: BRIMONIDINE/TIMOLOL OPH SOLN 5 ML BOTTLE BOTH EYES SCH ×2 (09:22→21:18)
[2020-06-20] MEDS: ATROPINE 1 % OPH SOLN 5 ML BOTTLE BOTH EYES SCH ×2 (09:22→21:18)
[2020-06-20] MEDS: SODIUM HYPOCHLORITE 0.25% IRRIG 473 ML BOTTLE TOP SCH (09:24)
[2020-06-20] MEDS: MINERAL OIL/PETROLATUM OPH OINT 3.5 GM TUBE BOTH EYES SCH ×2 (09:25→21:19)
[2020-06-21] MEDS: levETIRAcetam LIQUID 100 MG/ML 30 ML/BOTTLE PEG SCH ×3 (01:16→16:32)
[2020-06-21] MEDS: ATROPINE 1 % OPH SOLN 5 ML BOTTLE BOTH EYES SCH ×2 (09:22→23:01)
[2020-06-21] MEDS: ERYTHROMYCIN 0.5% OPHT OINT 3.5 GM TUBE BOTH EYES SCH ×4 (09:22→23:00)
[2020-06-21] MEDS: BRIMONIDINE/TIMOLOL OPH SOLN 5 ML BOTTLE BOTH EYES SCH ×2 (09:22→23:00)
[2020-06-21] MEDS: SODIUM HYPOCHLORITE 0.25% IRRIG 473 ML BOTTLE TOP SCH (09:23)
[2020-06-21] MEDS: MUPIROCIN 2% OINT 22 GM TUBE TOP SCH ×2 (09:23→23:05)
[2020-06-21] MEDS: MINERAL OIL/PETROLATUM OPH OINT 3.5 GM TUBE BOTH EYES SCH ×2 (09:23→23:02)
[2020-06-22] MEDS: levETIRAcetam LIQUID 100 MG/ML 30 ML/BOTTLE PEG SCH ×3 (01:00→16:01)
[2020-06-22] MEDS: ERYTHROMYCIN 0.5% OPHT OINT 3.5 GM TUBE BOTH EYES SCH ×4 (08:19→22:06)
[2020-06-22] MEDS: ATROPINE 1 % OPH SOLN 5 ML BOTTLE BOTH EYES SCH ×2 (08:19→22:06)
[2020-06-22] MEDS: SODIUM HYPOCHLORITE 0.25% IRRIG 473 ML BOTTLE TOP SCH (08:19)
[2020-06-22] MEDS: MUPIROCIN 2% OINT 22 GM TUBE TOP SCH ×2 (08:19→22:07)
[2020-06-22] MEDS: BRIMONIDINE/TIMOLOL OPH SOLN 5 ML BOTTLE BOTH EYES SCH ×2 (08:19→22:07)
[2020-06-22] MEDS: MINERAL OIL/PETROLATUM OPH OINT 3.5 GM TUBE BOTH EYES SCH ×2 (08:19→22:08)
[2020-06-23] MEDS: levETIRAcetam LIQUID 100 MG/ML 30 ML/BOTTLE PEG SCH ×3 (00:37→16:14)
[2020-06-23] MEDS: MINERAL OIL/PETROLATUM OPH OINT 3.5 GM TUBE BOTH EYES SCH ×2 (09:20→23:05)
[2020-06-23] MEDS: ERYTHROMYCIN 0.5% OPHT OINT 3.5 GM TUBE BOTH EYES SCH ×4 (09:20→23:04)
[2020-06-23] MEDS: ATROPINE 1 % OPH SOLN 5 ML BOTTLE BOTH EYES SCH ×2 (09:20→23:04)
[2020-06-23] MEDS: MUPIROCIN 2% OINT 22 GM TUBE TOP SCH ×2 (09:20→23:05)
[2020-06-23] MEDS: SODIUM HYPOCHLORITE 0.25% IRRIG 473 ML BOTTLE TOP SCH (09:20)
[2020-06-23] MEDS: BRIMONIDINE/TIMOLOL OPH SOLN 5 ML BOTTLE BOTH EYES SCH ×2 (09:20→23:04)
[2020-06-24] MEDS: levETIRAcetam LIQUID 100 MG/ML 30 ML/BOTTLE PEG SCH ×3 (00:13→17:15)
[2020-06-24] MEDS: MINERAL OIL/PETROLATUM OPH OINT 3.5 GM TUBE BOTH EYES SCH ×2 (09:16→21:52)
[2020-06-24] MEDS: ATROPINE 1 % OPH SOLN 5 ML BOTTLE BOTH EYES SCH ×2 (09:17→21:51)
[2020-06-24] MEDS: ERYTHROMYCIN 0.5% OPHT OINT 3.5 GM TUBE BOTH EYES SCH ×4 (09:17→21:50)
[2020-06-24] MEDS: SODIUM HYPOCHLORITE 0.25% IRRIG 473 ML BOTTLE TOP SCH (09:18)
[2020-06-24] MEDS: BRIMONIDINE/TIMOLOL OPH SOLN 5 ML BOTTLE BOTH EYES SCH ×2 (09:18→21:51)
[2020-06-24] MEDS: MUPIROCIN 2% OINT 22 GM TUBE TOP SCH ×2 (09:19→21:52)
[2020-06-25] MEDS: levETIRAcetam LIQUID 100 MG/ML 30 ML/BOTTLE PEG SCH ×3 (00:49→18:01)
[2020-06-25] MEDS: SODIUM HYPOCHLORITE 0.25% IRRIG 473 ML BOTTLE TOP SCH (10:14)
[2020-06-25] MEDS: BRIMONIDINE/TIMOLOL OPH SOLN 5 ML BOTTLE BOTH EYES SCH ×2 (10:14→22:09)
[2020-06-25] MEDS: MINERAL OIL/PETROLATUM OPH OINT 3.5 GM TUBE BOTH EYES SCH ×2 (10:14→22:24)
[2020-06-25] MEDS: ATROPINE 1 % OPH SOLN 5 ML BOTTLE BOTH EYES SCH ×2 (10:15→22:24)
[2020-06-25] MEDS: ERYTHROMYCIN 0.5% OPHT OINT 3.5 GM TUBE BOTH EYES SCH ×4 (10:15→22:24)
[2020-06-25] MEDS: MUPIROCIN 2% OINT 22 GM TUBE TOP SCH ×2 (10:15→22:25)
[2020-06-25] MEDS: METOPROLOL TARTRATE 25 MG TABLET PO SCH ×2 (12:39→22:24)
[2020-06-26] MEDS: levETIRAcetam LIQUID 100 MG/ML 30 ML/BOTTLE PEG SCH ×3 (01:17→17:33)
[2020-06-26] MEDS: METOPROLOL TARTRATE 25 MG TABLET PO SCH ×2 (10:02→21:17)
[2020-06-26] MEDS: BRIMONIDINE/TIMOLOL OPH SOLN 5 ML BOTTLE BOTH EYES SCH ×2 (10:04→21:18)
[2020-06-26] MEDS: ERYTHROMYCIN 0.5% OPHT OINT 3.5 GM TUBE BOTH EYES SCH ×4 (10:04→21:17)
[2020-06-26] MEDS: MUPIROCIN 2% OINT 22 GM TUBE TOP SCH ×2 (10:04→21:19)
[2020-06-26] MEDS: ATROPINE 1 % OPH SOLN 5 ML BOTTLE BOTH EYES SCH ×2 (10:04→21:18)
[2020-06-26] MEDS: MINERAL OIL/PETROLATUM OPH OINT 3.5 GM TUBE BOTH EYES SCH ×2 (10:04→21:19)
[2020-06-26] MEDS: SODIUM HYPOCHLORITE 0.25% IRRIG 473 ML BOTTLE TOP SCH (10:05)
[2020-06-27 05:11] LABS: Calcium 8.5 MG/DL (8.5-10.1); Prealbumin 18.2 MG/DL (20-40)
[2020-06-27] MEDS: METOPROLOL TARTRATE 25 MG TABLET PO SCH ×2 (09:00→22:02)
[2020-06-27] MEDS: levETIRAcetam LIQUID 100 MG/ML 30 ML/BOTTLE PEG SCH ×3 (09:02→16:19)
[2020-06-27] MEDS: BRIMONIDINE/TIMOLOL OPH SOLN 5 ML BOTTLE BOTH EYES SCH ×2 (09:02→22:01)
[2020-06-27] MEDS: SODIUM HYPOCHLORITE 0.25% IRRIG 473 ML BOTTLE TOP SCH (09:02)
[2020-06-27] MEDS: ERYTHROMYCIN 0.5% OPHT OINT 3.5 GM TUBE BOTH EYES SCH ×4 (09:02→22:01)
[2020-06-27] MEDS: MINERAL OIL/PETROLATUM OPH OINT 3.5 GM TUBE BOTH EYES SCH ×2 (09:03→22:01)
[2020-06-27] MEDS: ATROPINE 1 % OPH SOLN 5 ML BOTTLE BOTH EYES SCH ×2 (09:03→22:01)
[2020-06-27] MEDS: MUPIROCIN 2% OINT 22 GM TUBE TOP SCH ×2 (09:03→22:01)
[2020-06-28] MEDS: levETIRAcetam LIQUID 100 MG/ML 30 ML/BOTTLE PEG SCH ×3 (00:30→16:43)
[2020-06-28] MEDS: SODIUM HYPOCHLORITE 0.25% IRRIG 473 ML BOTTLE TOP SCH (08:26)
[2020-06-28] MEDS: MUPIROCIN 2% OINT 22 GM TUBE TOP SCH ×2 (08:26→21:07)
[2020-06-28] MEDS: ERYTHROMYCIN 0.5% OPHT OINT 3.5 GM TUBE BOTH EYES SCH ×4 (08:26→21:06)
[2020-06-28] MEDS: BRIMONIDINE/TIMOLOL OPH SOLN 5 ML BOTTLE BOTH EYES SCH ×2 (08:26→21:06)
[2020-06-28] MEDS: ATROPINE 1 % OPH SOLN 5 ML BOTTLE BOTH EYES SCH ×2 (08:27→21:06)
[2020-06-28] MEDS: METOPROLOL TARTRATE 25 MG TABLET PO SCH ×2 (08:28→21:05)
[2020-06-28] MEDS: MINERAL OIL/PETROLATUM OPH OINT 3.5 GM TUBE BOTH EYES SCH ×2 (08:28→21:08)
[2020-06-28] MEDS: SKIN HEALING OINT (AQUAPHOR) 50 GM TUBE TOP PRN (08:29)
[2020-06-29] MEDS: levETIRAcetam LIQUID 100 MG/ML 30 ML/BOTTLE PEG SCH ×3 (03:05→16:24)
[2020-06-29] MEDS: ERYTHROMYCIN 0.5% OPHT OINT 3.5 GM TUBE BOTH EYES SCH ×4 (09:17→21:00)
[2020-06-29] MEDS: METOPROLOL TARTRATE 25 MG TABLET PO SCH (09:17)
[2020-06-29] MEDS: MUPIROCIN 2% OINT 22 GM TUBE TOP SCH ×2 (09:18→20:59)
[2020-06-29] MEDS: ATROPINE 1 % OPH SOLN 5 ML BOTTLE BOTH EYES SCH ×2 (09:18→21:00)
[2020-06-29] MEDS: SODIUM HYPOCHLORITE 0.25% IRRIG 473 ML BOTTLE TOP SCH (09:18)
[2020-06-29] MEDS: BRIMONIDINE/TIMOLOL OPH SOLN 5 ML BOTTLE BOTH EYES SCH ×2 (09:18→21:00)
[2020-06-29] MEDS: MINERAL OIL/PETROLATUM OPH OINT 3.5 GM TUBE BOTH EYES SCH ×2 (09:19→21:00)
[2020-06-29] MEDS ORDERED: METOPROLOL TARTRATE 50 MG TABLET PO SCH (11:30)
[2020-06-29] MEDS: METOPROLOL TARTRATE 50 MG TABLET PO SCH (20:59)
[2020-06-30] MEDS: levETIRAcetam LIQUID 100 MG/ML 30 ML/BOTTLE PEG SCH ×3 (01:40→16:42)
[2020-06-30] MEDS: ERYTHROMYCIN 0.5% OPHT OINT 3.5 GM TUBE BOTH EYES SCH ×4 (08:54→22:20)
[2020-06-30] MEDS: METOPROLOL TARTRATE 50 MG TABLET PO SCH ×2 (08:54→22:20)
[2020-06-30] MEDS: BRIMONIDINE/TIMOLOL OPH SOLN 5 ML BOTTLE BOTH EYES SCH ×2 (08:54→22:20)
[2020-06-30] MEDS: SODIUM HYPOCHLORITE 0.25% IRRIG 473 ML BOTTLE TOP SCH (08:54)
[2020-06-30] MEDS: ATROPINE 1 % OPH SOLN 5 ML BOTTLE BOTH EYES SCH ×2 (08:54→22:20)
[2020-06-30] MEDS: MUPIROCIN 2% OINT 22 GM TUBE TOP SCH ×2 (08:54→22:20)
[2020-06-30] MEDS: MINERAL OIL/PETROLATUM OPH OINT 3.5 GM TUBE BOTH EYES SCH ×2 (08:55→22:20)
[2020-07-01] MEDS: levETIRAcetam LIQUID 100 MG/ML 30 ML/BOTTLE PEG SCH ×3 (01:11→16:07)
[2020-07-01] MEDS: METOPROLOL TARTRATE 50 MG TABLET PO SCH ×2 (09:06→21:05)
[2020-07-01] MEDS: lisinopriL 2.5 MG TABLET PO SCH (09:06)
[2020-07-01] MEDS: BRIMONIDINE/TIMOLOL OPH SOLN 5 ML BOTTLE BOTH EYES SCH ×2 (09:07→21:05)
[2020-07-01] MEDS: SODIUM HYPOCHLORITE 0.25% IRRIG 473 ML BOTTLE TOP SCH (09:07)
[2020-07-01] MEDS: MUPIROCIN 2% OINT 22 GM TUBE TOP SCH ×2 (09:07→21:08)
[2020-07-01] MEDS: ERYTHROMYCIN 0.5% OPHT OINT 3.5 GM TUBE BOTH EYES SCH ×4 (09:08→21:08)
[2020-07-01] MEDS: ATROPINE 1 % OPH SOLN 5 ML BOTTLE BOTH EYES SCH ×2 (09:08→21:07)
[2020-07-01] MEDS: MINERAL OIL/PETROLATUM OPH OINT 3.5 GM TUBE BOTH EYES SCH ×2 (09:08→21:08)
[2020-07-02] MEDS: levETIRAcetam LIQUID 100 MG/ML 30 ML/BOTTLE PEG SCH ×3 (00:14→16:00)
[2020-07-02] MEDS: MUPIROCIN 2% OINT 22 GM TUBE TOP SCH ×2 (08:08→21:26)
[2020-07-02] MEDS: SODIUM HYPOCHLORITE 0.25% IRRIG 473 ML BOTTLE TOP SCH (08:08)
[2020-07-02] MEDS: BRIMONIDINE/TIMOLOL OPH SOLN 5 ML BOTTLE BOTH EYES SCH ×2 (08:08→21:26)
[2020-07-02] MEDS: ATROPINE 1 % OPH SOLN 5 ML BOTTLE BOTH EYES SCH ×2 (08:09→21:26)
[2020-07-02] MEDS: MINERAL OIL/PETROLATUM OPH OINT 3.5 GM TUBE BOTH EYES SCH ×2 (08:09→21:27)
[2020-07-02] MEDS: METOPROLOL TARTRATE 50 MG TABLET PO SCH ×2 (08:09→21:26)
[2020-07-02] MEDS: ERYTHROMYCIN 0.5% OPHT OINT 3.5 GM TUBE BOTH EYES SCH ×4 (08:09→21:26)
[2020-07-02] MEDS: lisinopriL 2.5 MG TABLET PO SCH (08:09)
[2020-07-03] MEDS: levETIRAcetam LIQUID 100 MG/ML 30 ML/BOTTLE PEG SCH ×3 (01:30→17:05)
[2020-07-03] MEDS: lisinopriL 2.5 MG TABLET PO SCH (10:00)
[2020-07-03] MEDS: METOPROLOL TARTRATE 50 MG TABLET PO SCH ×2 (10:01→21:18)
[2020-07-03] MEDS: MINERAL OIL/PETROLATUM OPH OINT 3.5 GM TUBE BOTH EYES SCH ×2 (10:02→21:19)
[2020-07-03] MEDS: BRIMONIDINE/TIMOLOL OPH SOLN 5 ML BOTTLE BOTH EYES SCH ×2 (10:02→21:18)
[2020-07-03] MEDS: ERYTHROMYCIN 0.5% OPHT OINT 3.5 GM TUBE BOTH EYES SCH ×4 (10:02→21:19)
[2020-07-03] MEDS: MUPIROCIN 2% OINT 22 GM TUBE TOP SCH ×2 (10:02→21:20)
[2020-07-03] MEDS: SODIUM HYPOCHLORITE 0.25% IRRIG 473 ML BOTTLE TOP SCH (10:02)
[2020-07-03] MEDS: ATROPINE 1 % OPH SOLN 5 ML BOTTLE BOTH EYES SCH ×2 (10:02→21:19)
[2020-07-04] MEDS: levETIRAcetam LIQUID 100 MG/ML 30 ML/BOTTLE PEG SCH ×3 (00:49→17:01)
[2020-07-04] MEDS: METOPROLOL TARTRATE 50 MG TABLET PO SCH ×2 (09:29→20:32)
[2020-07-04] MEDS: lisinopriL 2.5 MG TABLET PO SCH (09:29)
[2020-07-04] MEDS: ERYTHROMYCIN 0.5% OPHT OINT 3.5 GM TUBE BOTH EYES SCH ×4 (09:30→20:32)
[2020-07-04] MEDS: BRIMONIDINE/TIMOLOL OPH SOLN 5 ML BOTTLE BOTH EYES SCH ×2 (09:30→20:32)
[2020-07-04] MEDS: SODIUM HYPOCHLORITE 0.25% IRRIG 473 ML BOTTLE TOP SCH (09:30)
[2020-07-04] MEDS: MINERAL OIL/PETROLATUM OPH OINT 3.5 GM TUBE BOTH EYES SCH ×2 (09:31→20:33)
[2020-07-04] MEDS: ATROPINE 1 % OPH SOLN 5 ML BOTTLE BOTH EYES SCH ×2 (09:31→20:32)
[2020-07-04] MEDS: MUPIROCIN 2% OINT 22 GM TUBE TOP SCH ×2 (09:31→20:32)
[2020-07-05] MEDS: levETIRAcetam LIQUID 100 MG/ML 30 ML/BOTTLE PEG SCH ×3 (00:24→17:29)
[2020-07-05] MEDS: lisinopriL 2.5 MG TABLET PO SCH (10:08)
[2020-07-05] MEDS: ATROPINE 1 % OPH SOLN 5 ML BOTTLE BOTH EYES SCH ×2 (10:09→21:19)
[2020-07-05] MEDS: METOPROLOL TARTRATE 50 MG TABLET PO SCH ×2 (10:09→21:20)
[2020-07-05] MEDS: ERYTHROMYCIN 0.5% OPHT OINT 3.5 GM TUBE BOTH EYES SCH ×4 (10:09→21:18)
[2020-07-05] MEDS: BRIMONIDINE/TIMOLOL OPH SOLN 5 ML BOTTLE BOTH EYES SCH ×2 (10:10→21:19)
[2020-07-05] MEDS: MINERAL OIL/PETROLATUM OPH OINT 3.5 GM TUBE BOTH EYES SCH ×2 (10:10→21:18)
[2020-07-05] MEDS: MUPIROCIN 2% OINT 22 GM TUBE TOP SCH ×2 (10:10→21:20)
[2020-07-05] MEDS: SODIUM HYPOCHLORITE 0.25% IRRIG 473 ML BOTTLE TOP SCH (10:10)
[2020-07-05] MEDS ORDERED: TUBERCULIN SKIN TEST 0.1 ML SYRINGE INTRADERM ONE (12:00)
[2020-07-06] MEDS: levETIRAcetam LIQUID 100 MG/ML 30 ML/BOTTLE PEG SCH ×3 (01:25→17:51)
[2020-07-06] MEDS: METOPROLOL TARTRATE 50 MG TABLET PO SCH ×2 (10:52→22:15)
[2020-07-06] MEDS: lisinopriL 2.5 MG TABLET PO SCH (10:52)
[2020-07-06] MEDS: SODIUM HYPOCHLORITE 0.25% IRRIG 473 ML BOTTLE TOP SCH (10:59)
[2020-07-06] MEDS: MUPIROCIN 2% OINT 22 GM TUBE TOP SCH ×2 (10:59→22:16)
[2020-07-06] MEDS: BRIMONIDINE/TIMOLOL OPH SOLN 5 ML BOTTLE BOTH EYES SCH ×2 (10:59→22:16)
[2020-07-06] MEDS: ERYTHROMYCIN 0.5% OPHT OINT 3.5 GM TUBE BOTH EYES SCH ×4 (10:59→22:16)
[2020-07-06] MEDS: ATROPINE 1 % OPH SOLN 5 ML BOTTLE BOTH EYES SCH ×2 (11:00→22:17)
[2020-07-06] MEDS: MINERAL OIL/PETROLATUM OPH OINT 3.5 GM TUBE BOTH EYES SCH ×2 (11:00→22:16)
[2020-07-07] MEDS: levETIRAcetam LIQUID 100 MG/ML 30 ML/BOTTLE PEG SCH ×3 (00:38→18:06)
[2020-07-07] MEDS: lisinopriL 2.5 MG TABLET PO SCH (10:32)
[2020-07-07] MEDS: METOPROLOL TARTRATE 50 MG TABLET PO SCH ×2 (10:33→21:53)
[2020-07-07] MEDS: SODIUM HYPOCHLORITE 0.25% IRRIG 473 ML BOTTLE TOP SCH (10:33)
[2020-07-07] MEDS: ERYTHROMYCIN 0.5% OPHT OINT 3.5 GM TUBE BOTH EYES SCH ×4 (10:33→21:52)
[2020-07-07] MEDS: MUPIROCIN 2% OINT 22 GM TUBE TOP SCH ×2 (10:33→21:52)
[2020-07-07] MEDS: MINERAL OIL/PETROLATUM OPH OINT 3.5 GM TUBE BOTH EYES SCH ×2 (10:33→21:52)
[2020-07-07] MEDS: BRIMONIDINE/TIMOLOL OPH SOLN 5 ML BOTTLE BOTH EYES SCH ×2 (10:33→21:52)
[2020-07-07] MEDS: ATROPINE 1 % OPH SOLN 5 ML BOTTLE BOTH EYES SCH ×2 (10:33→21:52)
[2020-07-08] MEDS: levETIRAcetam LIQUID 100 MG/ML 30 ML/BOTTLE PEG SCH ×3 (00:16→17:00)
[2020-07-08 06:43] LABS: Basophils % 0.3 % (0.0-0.8); Eosinophils # 0.1 10*3/uL (0.0-0.87); Eosinophils % 1.6 % (0.00-10.9); Hematocrit 38.2 VOL% (35.7-47.0); Hemoglobin 11.6 GM/DL (12.0-16.0); Immature Granulocytes % 1.9 %; Immature Granulocytes Absolute 0.17 #; Lymphocytes # 2.2 10*3/uL (1.4-4.0); Mean Corpuscular HGB Conc 30.4 GM/DL (32-36); Mean Corpuscular Volume 82.2 FL (87-102); Mean Platelet Volume 12.6 FL (9.6-12.0); Monocytes % 11.4 % (1.7-12.7); Neutrophils % 60.8 % (38.7-73.9); Platelet Count 248 T/CUMM (130-400); Red Blood Count 4.65 MC/CUMM (3.8-5.5); Red Cell Distribution Width 16.1 % (9.3-17.3)
[2020-07-08 07:17] LABS: Calcium 9.5 MG/DL (8.5-10.1)
[2020-07-08] MEDS: BRIMONIDINE/TIMOLOL OPH SOLN 5 ML BOTTLE BOTH EYES SCH ×2 (10:13→20:54)
[2020-07-08] MEDS: ATROPINE 1 % OPH SOLN 5 ML BOTTLE BOTH EYES SCH ×2 (10:13→20:55)
[2020-07-08] MEDS: ERYTHROMYCIN 0.5% OPHT OINT 3.5 GM TUBE BOTH EYES SCH ×4 (10:14→20:54)
[2020-07-08] MEDS: lisinopriL 2.5 MG TABLET PO SCH (10:14)
[2020-07-08] MEDS: SODIUM HYPOCHLORITE 0.25% IRRIG 473 ML BOTTLE TOP SCH (10:14)
[2020-07-08] MEDS: MUPIROCIN 2% OINT 22 GM TUBE TOP SCH ×2 (10:14→20:54)
[2020-07-08] MEDS: METOPROLOL TARTRATE 50 MG TABLET PO SCH ×2 (10:15→20:53)
[2020-07-08] MEDS: MINERAL OIL/PETROLATUM OPH OINT 3.5 GM TUBE BOTH EYES SCH ×2 (10:15→20:54)
[2020-07-08] MEDS ORDERED: METOPROLOL TARTRATE 5 MG/5 ML VIAL IV ONE (20:24)
[2020-07-09] MEDS: levETIRAcetam LIQUID 100 MG/ML 30 ML/BOTTLE PEG SCH ×3 (01:15→17:08)
[2020-07-09] MEDS: lisinopriL 2.5 MG TABLET PO SCH (09:32)
[2020-07-09] MEDS: METOPROLOL TARTRATE 50 MG TABLET PO SCH ×2 (09:32→20:19)
[2020-07-09] MEDS: ATROPINE 1 % OPH SOLN 5 ML BOTTLE BOTH EYES SCH ×2 (09:32→20:19)
[2020-07-09] MEDS: SODIUM HYPOCHLORITE 0.25% IRRIG 473 ML BOTTLE TOP SCH (09:32)
[2020-07-09] MEDS: ERYTHROMYCIN 0.5% OPHT OINT 3.5 GM TUBE BOTH EYES SCH ×4 (09:32→20:19)
[2020-07-09] MEDS: BRIMONIDINE/TIMOLOL OPH SOLN 5 ML BOTTLE BOTH EYES SCH ×2 (09:32→20:19)
[2020-07-09] MEDS: MINERAL OIL/PETROLATUM OPH OINT 3.5 GM TUBE BOTH EYES SCH ×2 (09:33→20:20)
[2020-07-09] MEDS: MUPIROCIN 2% OINT 22 GM TUBE TOP SCH ×2 (09:33→20:20)
[2020-07-10] MEDS: levETIRAcetam LIQUID 100 MG/ML 30 ML/BOTTLE PEG SCH ×3 (01:10→17:42)
[2020-07-10] MEDS: ERYTHROMYCIN 0.5% OPHT OINT 3.5 GM TUBE BOTH EYES SCH ×4 (09:24→21:16)
[2020-07-10] MEDS: MINERAL OIL/PETROLATUM OPH OINT 3.5 GM TUBE BOTH EYES SCH ×2 (09:24→21:16)
[2020-07-10] MEDS: ATROPINE 1 % OPH SOLN 5 ML BOTTLE BOTH EYES SCH ×2 (09:24→21:16)
[2020-07-10] MEDS: MUPIROCIN 2% OINT 22 GM TUBE TOP SCH ×2 (09:24→21:16)
[2020-07-10] MEDS: METOPROLOL TARTRATE 50 MG TABLET PO SCH ×2 (09:25→21:15)
[2020-07-10] MEDS: BRIMONIDINE/TIMOLOL OPH SOLN 5 ML BOTTLE BOTH EYES SCH ×2 (09:25→21:16)
[2020-07-10] MEDS: lisinopriL 2.5 MG TABLET PO SCH (09:25)
[2020-07-10] MEDS: SODIUM HYPOCHLORITE 0.25% IRRIG 473 ML BOTTLE TOP SCH (09:25)
[2020-07-11] MEDS: levETIRAcetam LIQUID 100 MG/ML 30 ML/BOTTLE PEG SCH ×3 (00:27→17:15)
[2020-07-11 05:51] LABS: Calcium 9.1 MG/DL (8.5-10.1)
[2020-07-11] MEDS: BRIMONIDINE/TIMOLOL OPH SOLN 5 ML BOTTLE BOTH EYES SCH ×2 (09:33→20:20)
[2020-07-11] MEDS: SODIUM HYPOCHLORITE 0.25% IRRIG 473 ML BOTTLE TOP SCH (09:34)
[2020-07-11] MEDS: MINERAL OIL/PETROLATUM OPH OINT 3.5 GM TUBE BOTH EYES SCH ×2 (09:34→20:20)
[2020-07-11] MEDS: ATROPINE 1 % OPH SOLN 5 ML BOTTLE BOTH EYES SCH ×2 (09:34→20:20)
[2020-07-11] MEDS: ERYTHROMYCIN 0.5% OPHT OINT 3.5 GM TUBE BOTH EYES SCH ×4 (09:34→20:20)
[2020-07-11] MEDS: MUPIROCIN 2% OINT 22 GM TUBE TOP SCH ×2 (09:34→20:20)
[2020-07-11 12:39] LABS: Calcium 8.5 MG/DL (8.5-10.1); Osmolality,Calculated 279.1 MOS/KG (273-304)
[2020-07-11] MEDS: METOPROLOL TARTRATE 50 MG TABLET PO SCH ×2 (14:05→20:20)
[2020-07-11] MEDS: lisinopriL 2.5 MG TABLET PO SCH (14:05)
[2020-07-12] MEDS: levETIRAcetam LIQUID 100 MG/ML 30 ML/BOTTLE PEG SCH ×3 (00:13→16:59)
[2020-07-12] MEDS: lisinopriL 2.5 MG TABLET PO SCH (08:36)
[2020-07-12] MEDS: METOPROLOL TARTRATE 50 MG TABLET PO SCH ×2 (08:36→20:00)
[2020-07-12] MEDS: ATROPINE 1 % OPH SOLN 5 ML BOTTLE BOTH EYES SCH ×2 (08:36→20:00)
[2020-07-12] MEDS: BRIMONIDINE/TIMOLOL OPH SOLN 5 ML BOTTLE BOTH EYES SCH ×2 (08:37→20:00)
[2020-07-12] MEDS: ERYTHROMYCIN 0.5% OPHT OINT 3.5 GM TUBE BOTH EYES SCH ×4 (08:37→20:00)
[2020-07-12] MEDS: MUPIROCIN 2% OINT 22 GM TUBE TOP SCH ×2 (08:38→20:01)
[2020-07-12] MEDS: SODIUM HYPOCHLORITE 0.25% IRRIG 473 ML BOTTLE TOP SCH (08:38)
[2020-07-12] MEDS: MINERAL OIL/PETROLATUM OPH OINT 3.5 GM TUBE BOTH EYES SCH ×2 (08:40→20:01)
[2020-07-13] MEDS: levETIRAcetam LIQUID 100 MG/ML 30 ML/BOTTLE PEG SCH ×3 (00:48→17:07)
[2020-07-13] MEDS: ATROPINE 1 % OPH SOLN 5 ML BOTTLE BOTH EYES SCH ×2 (08:49→20:23)
[2020-07-13] MEDS: MUPIROCIN 2% OINT 22 GM TUBE TOP SCH ×2 (08:49→20:23)
[2020-07-13] MEDS: ERYTHROMYCIN 0.5% OPHT OINT 3.5 GM TUBE BOTH EYES SCH ×4 (08:49→20:23)
[2020-07-13] MEDS: BRIMONIDINE/TIMOLOL OPH SOLN 5 ML BOTTLE BOTH EYES SCH ×2 (08:49→20:23)
[2020-07-13] MEDS: MINERAL OIL/PETROLATUM OPH OINT 3.5 GM TUBE BOTH EYES SCH ×2 (08:49→20:23)
[2020-07-13] MEDS: SODIUM HYPOCHLORITE 0.25% IRRIG 473 ML BOTTLE TOP SCH (08:50)
[2020-07-13] MEDS: METOPROLOL TARTRATE 50 MG TABLET PO SCH ×2 (08:51→20:22)
[2020-07-13] MEDS: lisinopriL 2.5 MG TABLET PO SCH (08:51)
[2020-07-14] MEDS: levETIRAcetam LIQUID 100 MG/ML 30 ML/BOTTLE PEG SCH ×3 (00:27→16:25)
[2020-07-14 06:34] LABS: Basophils % 0.3 % (0.0-0.8); Eosinophils # 0.2 10*3/uL (0.0-0.87); Hematocrit 34.1 VOL% (35.7-47.0); Hemoglobin 10.5 GM/DL (12.0-16.0); Immature Granulocytes % 0.9 %; Immature Granulocytes Absolute 0.07 #; Lymphocytes % 26.2 % (21.3-54.2); Mean Corpuscular HGB Conc 30.8 GM/DL (32-36); Mean Platelet Volume 12.9 FL (9.6-12.0); Monocytes % 11.4 % (1.7-12.7); Neutrophils % 58.2 % (38.7-73.9); Platelet Count 201 T/CUMM (130-400); Red Blood Count 4.16 MC/CUMM (3.8-5.5); Red Cell Distribution Width 15.9 % (9.3-17.3); White Blood Count 7.7 T/CUMM (4-12)
[2020-07-14 06:50] LABS: Osmolality,Calculated 276.8 MOS/KG (273-304)
[2020-07-14] MEDS: MINERAL OIL/PETROLATUM OPH OINT 3.5 GM TUBE BOTH EYES SCH ×2 (08:53→20:29)
[2020-07-14] MEDS: MUPIROCIN 2% OINT 22 GM TUBE TOP SCH ×2 (08:53→20:29)
[2020-07-14] MEDS: BRIMONIDINE/TIMOLOL OPH SOLN 5 ML BOTTLE BOTH EYES SCH ×2 (08:53→20:29)
[2020-07-14] MEDS: ERYTHROMYCIN 0.5% OPHT OINT 3.5 GM TUBE BOTH EYES SCH ×4 (08:53→20:30)
[2020-07-14] MEDS: ATROPINE 1 % OPH SOLN 5 ML BOTTLE BOTH EYES SCH ×2 (08:53→20:29)
[2020-07-14] MEDS: SODIUM HYPOCHLORITE 0.25% IRRIG 473 ML BOTTLE TOP SCH (08:54)
[2020-07-14] MEDS: METOPROLOL TARTRATE 50 MG TABLET PO SCH ×2 (08:55→20:29)
[2020-07-14] MEDS: lisinopriL 2.5 MG TABLET PO SCH (08:55)
[2020-07-15] MEDS: levETIRAcetam LIQUID 100 MG/ML 30 ML/BOTTLE PEG SCH ×3 (00:42→17:33)
[2020-07-15] MEDS: ERYTHROMYCIN 0.5% OPHT OINT 3.5 GM TUBE BOTH EYES SCH ×4 (09:34→22:22)
[2020-07-15] MEDS: ATROPINE 1 % OPH SOLN 5 ML BOTTLE BOTH EYES SCH ×2 (09:34→22:23)
[2020-07-15] MEDS: MUPIROCIN 2% OINT 22 GM TUBE TOP SCH ×2 (09:34→22:21)
[2020-07-15] MEDS: lisinopriL 2.5 MG TABLET PO SCH (09:34)
[2020-07-15] MEDS: METOPROLOL TARTRATE 50 MG TABLET PO SCH ×2 (09:34→22:24)
[2020-07-15] MEDS: SODIUM HYPOCHLORITE 0.25% IRRIG 473 ML BOTTLE TOP SCH (09:34)
[2020-07-15] MEDS: BRIMONIDINE/TIMOLOL OPH SOLN 5 ML BOTTLE BOTH EYES SCH ×2 (09:34→22:21)
[2020-07-15] MEDS: MINERAL OIL/PETROLATUM OPH OINT 3.5 GM TUBE BOTH EYES SCH ×2 (09:35→22:23)
[2020-07-16] MEDS: levETIRAcetam LIQUID 100 MG/ML 30 ML/BOTTLE PEG SCH ×3 (00:51→16:22)
[2020-07-16] MEDS: ATROPINE 1 % OPH SOLN 5 ML BOTTLE BOTH EYES SCH ×2 (08:52→20:27)
[2020-07-16] MEDS: lisinopriL 2.5 MG TABLET PO SCH (08:52)
[2020-07-16] MEDS: BRIMONIDINE/TIMOLOL OPH SOLN 5 ML BOTTLE BOTH EYES SCH ×2 (08:52→20:27)
[2020-07-16] MEDS: SODIUM HYPOCHLORITE 0.25% IRRIG 473 ML BOTTLE TOP SCH (08:52)
[2020-07-16] MEDS: METOPROLOL TARTRATE 50 MG TABLET PO SCH ×2 (08:52→20:27)
[2020-07-16] MEDS: MINERAL OIL/PETROLATUM OPH OINT 3.5 GM TUBE BOTH EYES SCH ×2 (08:53→20:27)
[2020-07-17] MEDS: levETIRAcetam LIQUID 100 MG/ML 30 ML/BOTTLE PEG SCH ×3 (00:28→17:01)
[2020-07-17] MEDS: ATROPINE 1 % OPH SOLN 5 ML BOTTLE BOTH EYES SCH ×2 (08:39→20:36)
[2020-07-17] MEDS: SODIUM HYPOCHLORITE 0.25% IRRIG 473 ML BOTTLE TOP SCH (08:39)
[2020-07-17] MEDS: BRIMONIDINE/TIMOLOL OPH SOLN 5 ML BOTTLE BOTH EYES SCH ×2 (08:39→20:36)
[2020-07-17] MEDS: METOPROLOL TARTRATE 50 MG TABLET PO SCH ×2 (08:40→20:37)
[2020-07-17] MEDS: lisinopriL 2.5 MG TABLET PO SCH (08:40)
[2020-07-17] MEDS: MINERAL OIL/PETROLATUM OPH OINT 3.5 GM TUBE BOTH EYES SCH ×2 (08:40→20:37)
[2020-07-18] MEDS: levETIRAcetam LIQUID 100 MG/ML 30 ML/BOTTLE PEG SCH ×3 (00:15→16:25)
[2020-07-18] MEDS: lisinopriL 2.5 MG TABLET PO SCH (09:10)
[2020-07-18] MEDS: SODIUM HYPOCHLORITE 0.25% IRRIG 473 ML BOTTLE TOP SCH (09:10)
[2020-07-18] MEDS: ATROPINE 1 % OPH SOLN 5 ML BOTTLE BOTH EYES SCH ×2 (09:10→20:48)
[2020-07-18] MEDS: BRIMONIDINE/TIMOLOL OPH SOLN 5 ML BOTTLE BOTH EYES SCH ×2 (09:10→20:47)
[2020-07-18] MEDS: METOPROLOL TARTRATE 50 MG TABLET PO SCH ×2 (09:10→20:47)
[2020-07-18] MEDS: MINERAL OIL/PETROLATUM OPH OINT 3.5 GM TUBE BOTH EYES SCH ×2 (09:11→20:47)
[2020-07-18] MEDS ORDERED: MORPHINE 4 MG/1 ML VIAL IV PRN (17:43)
[2020-07-19] MEDS: levETIRAcetam LIQUID 100 MG/ML 30 ML/BOTTLE PEG SCH ×2 (01:18→08:26)
[2020-07-19 07:56] VITALS: BP 106/70
[2020-07-19] MEDS: SODIUM HYPOCHLORITE 0.25% IRRIG 473 ML BOTTLE TOP SCH (08:26)
[2020-07-19] MEDS: MINERAL OIL/PETROLATUM OPH OINT 3.5 GM TUBE BOTH EYES SCH (08:26)
[2020-07-19] MEDS: ATROPINE 1 % OPH SOLN 5 ML BOTTLE BOTH EYES SCH (08:26)
[2020-07-19] MEDS: BRIMONIDINE/TIMOLOL OPH SOLN 5 ML BOTTLE BOTH EYES SCH (08:26)
[2020-07-19] MEDS: METOPROLOL TARTRATE 50 MG TABLET PO SCH (08:26)
[2020-07-19] MEDS: lisinopriL 2.5 MG TABLET PO SCH (08:26)
== END 2020-07-19 11:30 | disposition expired | DRG 5 ==
LOC: EDBD → EDUNIT# → N.ED 15:27 → N.ICU 16:06 → SUATTDRO 16:29 → N.EDINP 16:29 → N.ICU 17:00 → N.4E 04-04 22:21 → N.5E 06-20 18:36
PROVIDERS: ADMIT Internal Medicine Cardiovascular Disease; ATTEND Internal Medicine
PROC: CLCCHCL (ICD-10-PCS; 2020-03-12 16:30)
PROC: EGDWPEG (ICD-10-PCS; 2020-03-25 11:05)